=== PATIENT | female | born 1965 | race Caucasian/White ===

== ENCOUNTER → 2018-08-31 10:40 | Outpatient (CLI) | payer BC, SELFPAY ==
[2018-08-31 12:02] LABS: Absolute Lymphocyte Count 2.63 X10^3/ul (0.83-4.51); Basophil# 0.02 X10^3/uL; Basophil% 0.2 % (0-1); Eosinophil# 0.22 X10^3/uL; Eosinophils% 2.3 % (0-5); Hematocrit 45.2 % (37-47); Hemoglobin 14.7 g/dl (12.0-15.0); Lymphocyte # 2.63 X10^3/ul (4.0); Mean Corp Hgb Conc 32.5 g/gl (32-36); Mean Corpuscular Hgb 28.7 pg (27.0-32.0); Mean Corpuscular Volume 88.3 fL (81-99); Mean Platelet Vol. 10.4 fl (6.2-12.0); Monocyte# 0.53 X10^3/uL; Monocyte% 5.7 % (0-10); Neutrophil # 5.96 X10^3/uL (2.7-7.7); Neutrophil % 63.6 % (47-70); Platelet Count 242 K/mm3 (150-450); RBC Distribution Width CV 14.2 % (11.6-14.6); RBC Distribution Width SD 45.8 fl (35.1-43.9); Red Blood Count 5.12 M/mm3 (4.2-5.4); White Blood Count 9.4 K/mm3 (4.4-11.0)
[2018-08-31 12:17] LABS: ALB/GLOB Ratio 0.8 RATIO (0.9-2.4); AST(SGOT) 46 U/L (15-37); Alanine Aminotransfer ALT/SGPT 71 U/L (13-56); Albumin, Serum 3.4 g/dL (3.2-5.0); Alkaline Phosphatase 81 U/L (45-117); Anion Gap 8 (5-15); BUN 10 mg/dL (7-18); BUN/Creat Ratio 13.1 RATIO (10-20); Calcium,Total 8.4 mg/dL (8.5-10.1); Chloride 104 mmol/L (98-107); Creatinine, Serum 0.76 mg/dL (0.55-1.02); EST Glomerular Filtration Rate 84 mL/min (>60); Est Glom Filt Rate - Afr Amer 101 mL/min (>60); Globulin 4.2 g/dL (2.2-4.2); Glucose 112 mg/dL (74-106); Potassium 4.1 mmol/L (3.5-5.1); Protein, Total 7.6 g/dL (6.4-8.2); Sodium Level 139 mmol/L (136-145); Thyroid Stim Hormone (TSH) 0.94 uIU/mL (0.358-3.74)
[2018-08-31 12:25] LABS: POSITIVE COUNT NO; POSITIVE DIFFERENTIAL NO; POSITIVE MORPHOLOGY NO
== END ==
PROVIDERS: Visit Provider Family Medicine Geriatric Medicine
DX: Z00.00 Encounter for general adult medical examination without abnormal findings (principal)
CPT/HCPCS: 36415; 80053; 84443; 85025

== ENCOUNTER → 2018-10-06 12:12 | Outpatient (CLI) | payer BC, SELFPAY ==
--- NOTE | 2018-10-06 12:19 | BI_ITS ---
MAMMOGRAPHY - BILATERAL SCREENING REASON FOR EXAM: Female, 53 years old. Routine annual screening examination. PERTINENT HISTORY: Non-contributory. TECHNIQUE: Digital bilateral breast cass (3D mammographic acquisition) in the CC and MLO projections. 2-D mediolateral oblique (MLO) and craniocaudad (CC) views of both breasts were obtained. CAD: Full Field Digital Mammography with Computer Added Detection was performed. COMPARISON: Comparison is made with prior outside examination dated November 30, 2015. FINDINGS: Breast Composition: There are scattered areas of fibroglandular density. There are no dominant masses or suspicious calcifications. There is a stable 4.9 mm x 8.8 mm well-defined nodule in the upper lateral anterior aspect of the right breast. This most likely represents a small lymph node. There is also evidence of a 6.9 mm x 5.9 mm well-defined nodule in the central mid depth of the left breast. Correlation with ultrasound of both breasts is recommended. No other significant abnormalities are identified. There has been no significant change since the prior study. BI/SCREENING MAMM (CAD), BILAT IMPRESSION: Small bilateral well-defined nodules as described. Correlation with ultrasound is recommended. ASSESSMENT CATEGORY: BIRADS Category 0: Incomplete. Need additional imaging evaluation. A letter regarding these results will be sent to the patient by the facility within 30 days. Approximately 10% of breast cancers are not detected by mammography. A normal mammogram should not delay biopsy of a clinically suspicious abnormality. [id number] Electronically Signed: Trip Carl MD at 11:29 EST Tel [phone], Service support ,
== END ==
PROVIDERS: Family Provider Family Medicine Geriatric Medicine; PCP Family Medicine Geriatric Medicine; Referring Provider Family Medicine Geriatric Medicine; Visit Provider Family Medicine Geriatric Medicine
DX: Z12.31 Encounter for screening mammogram for malignant neoplasm of breast (principal)
CPT/HCPCS: 77063; 77067

== ENCOUNTER → 2018-10-09 14:13 | Outpatient (CLI) | payer BC, SELFPAY ==
--- NOTE | 2018-10-09 14:15 | US_ITS ---
STUDY: ULTRASOUND BREAST - RIGHT REASON FOR EXAM: Female, 53 years old. Abnormal screening mammogram. TECHNIQUE: Axial and longitudinal images of the RIGHT breast were performed with a high resolution ultrasound transducer. COMPARISON: Comparison is made with prior mammogram dated October 06, 2018. FINDINGS: RIGHT Breast: There is a 6 mm x 6 mm x 4 mm well-defined hypoechoic nodule with central increased echotexture at the 10:00 position breast at 7 cm from nipple. This corresponds to a small lymph node. IMPRESSION: Findings suggesting a small lymph node corresponding to the mammographic abnormality. ASSESSMENT CATEGORY: BIRADS Category 2: Benign. A letter regarding these results will be sent to the patient by the facility within 30 days. Electronically Signed: Trip Carl MD at 15:36 EST Tel [phone], Service support , STUDY: ULTRASOUND BREAST - LEFT REASON FOR EXAM: Female, 53 years old. Abnormal screening mammogram. TECHNIQUE: Axial and longitudinal images of the LEFT breast were performed with a high resolution ultrasound transducer. COMPARISON: Comparison is made with prior mammogram dated October 06, 2018. FINDINGS: LEFT Breast: There is a 3 mm x 5 mm x 2 mm cyst at the 6:00 position of the breast at 2 cm from the nipple. US/Breast Limited Unilateral IMPRESSION: The mammographic abnormality corresponds to a 3 mm x 5 mm x 2 mm cyst. ASSESSMENT CATEGORY: BIRADS Category 2: Benign. A letter regarding these results will be sent to the patient by the facility within 30 days. Electronically Signed: Trip Carl MD at 15:37 EST Tel [phone], Service support ,
== END ==
PROVIDERS: Family Provider Family Medicine Geriatric Medicine; PCP Family Medicine Geriatric Medicine; Visit Provider Family Medicine Geriatric Medicine
DX: R92.8 Other abnormal and inconclusive findings on diagnostic imaging of breast (principal); N63.0 Unspecified lump in unspecified breast
CPT/HCPCS: 76642

== ENCOUNTER → 2018-10-19 15:42 | Outpatient (CLI) | payer BC, SELFPAY ==
--- NOTE | 2018-10-19 15:47 | ECHOD_ITS ---
Reason For Study: MURMUR Procedure This was a 2D Doppler, Color Flow transthoracic echocardiogram. The exam was of fair technical quality due to body habitus. Exam performed in department. Left Ventricle Normal LV size. Left ventricular systolic function is normal. The estimated ejection fraction is 60 %. No evidence for diastolic dysfunction. No regional wall motion abnormalities noted. Right Ventricle Normal RV size. Normal systolic function. Atria Normal left atrium. Normal right atrium. Mitral Valve Normal mitral valve. Tricuspid Valve Normal tricuspid valve. Mild (1+) tricuspid valve insufficiency. Pulmonary artery systolic pressure is 45 mmHg. Aortic Valve The aortic valve is not well visualized. Pulmonic Valve The pulmonic valve is not well visualized. Great Vessels Normal aortic root. The pulmonary artery is normal size. Normal inferior vena cava. Pericardium/Pleural No pericardial effusion. MMode/2D Measurements & Calculations LVIDd: 4.3 cm IVSd: 0.93 cm Ao root diam: 3.6 cm LVIDs: 2.6 cm LVPWd: 0.86 cm RVDd: 4.1 cm FS: 39.7 % LAV(MOD-bp): 46.8 ml LVAd ap4: 29.8 cm2 SV(MOD-sp4): 60.0 ml LAV(MOD-bp) Indexed: 19.7 ml/m2 EDV(MOD-sp4): 92.4 ml LAV(MOD-sp2): 63.1 ml EDV(sp4-el): 96.9 ml LAV(MOD-sp4): 33.6 ml LVAs ap4: 15.3 cm2 ESV(MOD-sp4): 32.3 ml ESV(sp4-el): 33.4 ml EF(MOD-sp4): 65.0 % EF(sp4-el): 65.5 % SV(sp4-el): 63.5 ml LA A4 area: 14.7 cm2 LA dimension(2D): 4.4 cm RA A4 area: 12.9 cm2 Time Measurements MV dec time: 0.21 sec Doppler Measurements & Calculations MV E max alexey: 119.3 cm/sec Lat Peak E' Alexey: 7.7 cm/sec Med Peak E' Alexey: 8.1 cm/sec MV A max alexey: 96.7 cm/sec E/E' lat: 15.5 E/E' med: 14.8 MV E/A: 1.2 Ao V2 max: 238.5 cm/sec LV V1 max: 133.3 cm/sec PA V2 max: 124.0 cm/sec Ao max P.8 mmHg LV V1 max P.1 mmHg Ao V2 mean: 168.6 cm/sec LV V1 mean P.8 mmHg Ao mean P.7 mmHg LV V1 mean: 90.5 cm/sec Ao V2 VTI: 47.0 cm LV V1 VTI: 31.0 cm TR max alexey: 321.2 cm/sec TR max P.3 mmHg Interpretation Summary Normal LV size. Left ventricular systolic function is normal. The estimated ejection fraction is 60 %. No evidence for diastolic dysfunction. Mild (1+) tricuspid valve insufficiency. Ordering Physician: Jeet Farnsworth Referring Physician: Jeet Farnsworth Chi Performed By: Joyce Wynn, RDCS, RVT
== END ==
PROVIDERS: Family Provider Family Medicine Geriatric Medicine; PCP Family Medicine Geriatric Medicine; Referring Provider Family Medicine Geriatric Medicine; Visit Provider Family Medicine Geriatric Medicine
DX: R01.1 Cardiac murmur, unspecified (principal)
CPT/HCPCS: 93306

== ENCOUNTER → 2019-09-05 15:47 | Outpatient (CLI) | payer BC, SELFPAY ==
[2019-09-05 17:55] LABS: Absolute Lymphocyte Count 4.11 X10^3/uL (0.83-4.51); Absolute Neutrophil Count 6.5 X10^3/uL (2.0-7.7); Basophil# 0.03 X10^3/uL; Basophil% 0.3 % (0-1); Eosinophils% 1.7 % (0-5); Hematocrit 45.1 % (37-47); Hemoglobin 14.4 g/dL (12.0-15.0); Lymphocyte # 4.11 X10^3/ul (4.0); Lymphocyte % 35.4 % (19-41); Mean Corp Hgb Conc 31.9 g/dL (32-36); Mean Corpuscular Hgb 28.6 pg (27.0-32.0); Mean Corpuscular Volume 89.7 fL (81-99); Mean Platelet Vol. 10.8 fl (6.2-12.0); Monocyte# 0.72 X10^3/uL; Monocyte% 6.2 % (0-10); NRBC Flagged by Analyzer 0 % (0-5); Neutrophil # 6.51 X10^3/uL (2.7-7.7); Neutrophil % 56.1 % (47-70); Platelet Count 257 K/mm3 (150-450); RBC Distribution Width CV 13.9 % (11.6-14.6); RBC Distribution Width SD 45.1 fl (35.1-43.9); Red Blood Count 5.03 M/mm3 (4.2-5.4); White Blood Count 11.6 K/mm3 (4.4-11.0)
[2019-09-05 18:01] LABS: ALB/GLOB Ratio 0.9 RATIO (0.9-2.4); AST(SGOT) 31 U/L (15-37); Alanine Aminotransfer ALT/SGPT 57 U/L (13-56); Albumin, Serum 3.8 g/dL (3.2-5.0); Alkaline Phosphatase 93 U/L (45-117); Anion Gap 8 (5-15); BUN 14 mg/dL (7-18); BUN/Creat Ratio 13.5 RATIO (10-20); Calcium,Total 8.8 mg/dL (8.5-10.1); Chloride 103 mmol/L (98-107); Creatinine, Serum 1.04 mg/dL (0.55-1.02); EST Glomerular Filtration Rate 58 mL/min (>60); Est Glom Filt Rate - Afr Amer 71 mL/min (>60); Globulin 4.1 g/dL (2.2-4.2); Glucose 116 mg/dL (74-106); Potassium 3.9 mmol/L (3.5-5.1); Protein, Total 7.9 g/dL (6.4-8.2); Sodium Level 139 mmol/L (136-145); Thyroid Stim Hormone (TSH) 1.34 uIU/mL (0.358-3.74)
== END ==
PROVIDERS: Family Provider Family Medicine Geriatric Medicine; PCP Family Medicine Geriatric Medicine; Visit Provider Family Medicine Geriatric Medicine
DX: I10 Essential (primary) hypertension (principal)
CPT/HCPCS: 36415; 80053; 84443; 85025

== ENCOUNTER → 2020-09-10 16:04 | Outpatient (CLI) | payer BC, SELFPAY ==
[2020-09-10 17:38] LABS: Absolute Lymphocyte Count 3.59 X10^3/uL (0.83-4.51); Absolute Neutrophil Count 5.3 X10^3/uL (2.0-7.7); Basophil# 0.04 X10^3/uL; Basophil% 0.4 % (0-1); Eosinophil# 0.29 X10^3/uL; Eosinophils% 2.9 % (0-5); Hematocrit 43.1 % (37-47); Hemoglobin 13.8 g/dL (12.0-15.0); Lymphocyte # 3.59 X10^3/ul (4.0); Lymphocyte % 36.1 % (19-41); Mean Corpuscular Hgb 28.6 pg (27.0-32.0); Mean Corpuscular Volume 89.2 fL (81-99); Mean Platelet Vol. 10.6 fl (6.2-12.0); Monocyte# 0.64 X10^3/uL; Monocyte% 6.4 % (0-10); NRBC Flagged by Analyzer 0 % (0-5); Neutrophil # 5.34 X10^3/uL (2.7-7.7); Neutrophil % 53.8 % (47-70); POSITIVE MORPHOLOGY YES; Platelet Count 246 K/mm3 (150-450); RBC Distribution Width CV 13.5 % (11.6-14.6); RBC Distribution Width SD 43.9 fl (35.1-43.9); Red Blood Count 4.83 M/mm3 (4.2-5.4); White Blood Count 9.9 K/mm3 (4.4-11.0)
[2020-09-10 17:49] LABS: Vitamin D,25 Hydroxy 23.9 ng/mL
[2020-09-10 17:58] LABS: ALB/GLOB Ratio 0.8 RATIO (0.9-2.4); AST(SGOT) 34 U/L (15-37); Alanine Aminotransfer ALT/SGPT 62 U/L (13-56); Albumin, Serum 3.5 g/dL (3.2-5.0); Alkaline Phosphatase 100 U/L (45-117); Anion Gap 6 (5-15); BUN 13 mg/dL (7-18); BUN/Creat Ratio 16.1 RATIO (10-20); Calcium,Total 8.5 mg/dL (8.5-10.1); Chloride 102 mmol/L (98-107); Creatinine, Serum 0.81 mg/dL (0.55-1.02); EST Glomerular Filtration Rate 78 mL/min (>60); Est Glom Filt Rate - Afr Amer 94 mL/min (>60); Globulin 4.2 g/dL (2.2-4.2); Glucose 141 mg/dL (74-106); Potassium 3.9 mmol/L (3.5-5.1); Protein, Total 7.7 g/dL (6.4-8.2); Sodium Level 137 mmol/L (136-145); Thyroid Stim Hormone (TSH) 1.77 uIU/mL (0.358-3.74)
[2020-09-10 18:10] LABS: Differential Indicated SCAN CRITERIA MET
[2020-09-10 18:12] LABS: Anisocytosis RARE; Platelet Estimate ADEQUATE (ADEQ); Red Cell Morphology N CHROM NORMAL (NORM C&C)
== END ==
PROVIDERS: PCP Family Medicine Geriatric Medicine; Visit Provider Family Medicine Geriatric Medicine
DX: E55.9 Vitamin D deficiency, unspecified (principal); I10 Essential (primary) hypertension
CPT/HCPCS: 36415; 80053; 82306; 84443; 85025

== ENCOUNTER → 2020-10-03 08:32 | Outpatient (CLI) | payer BC, SELFPAY ==
--- NOTE | 2020-10-03 09:15 | US_ITS ---
STUDY: ABDOMINAL ULTRASOUND - RIGHT UPPER QUADRANT REASON FOR VISIT: Female, 55 years old right upper quadrant pain, elevated LFTs TECHNIQUE: Ultrasound evaluation of the right upper quadrant was performed with real-time and static julien-scale imaging. TECHNICAL QUALITY: Adequate. COMPARISON: None. FINDINGS: Liver: The liver measures 20.5 cm. There is increased echogenicity consistent with fatty infiltration. The bile ducts are within normal limits. There is hepatic color flow. The direction of portal flow is hepatopetal. There is no demonstrated mass lesion. Gallbladder: Normal distended gallbladder. The gallbladder wall measures 2.7 mm. There is a negative sonographic Mckeon''s sign. There is no pericholecystic fluid. There is a solitary echogenic gallstone within the gallbladder. Common Bile Duct (C.B.D.): The common bile duct measures 3.7 mm. Pancreas: Normal size of the head, body and tail of the pancreas. There is normal echogenicity of the pancreas. There is no demonstrated pancreatic mass or cyst. Right Kidney: Normal size of the right kidney. The right kidney measures 11.2 x 6.1 x 5.1 cm. Normal renal cortex. The right cortex measures 1.9 cm. There is no demonstrated renal mass or cyst. There is no right hydronephrosis. US/Abdomen Limited IMPRESSION: Hepatomegaly with diffuse fatty infiltration of the liver, no discrete lesion Cholelithiasis, no sonographic evidence of acute cholecystitis Electronically Signed: Elvis Beckham MD at 10:11 EST , Service support ,
[2020-10-05 08:07] LABS: HEPATITIS B SURFACE AG Negative (Negative); Hepatitis A AB, Total Negative (Negative); Hepatitis A IgM Antibody Negative (Negative); Hepatitis B Core AB IgM Negative (Negative); Hepatitis B Core Ab Total Negative (Negative); Hepatitis C Ab <0.1 s/co ratio (0.0-0.9)
[2020-10-05 08:28] LABS: Hep B Surface Antibodies Non Reactive (.)
== END ==
PROVIDERS: PCP Family Medicine Geriatric Medicine; Referring Provider Family Medicine Geriatric Medicine; Visit Provider Family Medicine Geriatric Medicine
DX: K76.9 Liver disease, unspecified (principal); R74.8 Abnormal levels of other serum enzymes
CPT/HCPCS: 76705; 86704; 86705; 86706; 86708; 86709; 86803; 87340

== ENCOUNTER → 2020-10-15 07:43 | Outpatient (CLI) | payer BC, SELFPAY ==
--- NOTE | 2020-10-15 07:51 | US_ITS ---
STUDY: ABDOMINAL ULTRASOUND - ELASTOGRAPHY REASON FOR VISIT: Female, 55 years old. Fatty infiltration of the liver. TECHNIQUE: Liver stiffness measurements were obtained on a Flyr RS 85 ultrasound machine using a CA 1-7 probe following the SRU guidelines. 3 measurements were obtained using a 2-D-SWE method. The IQR/M was 13% suggesting a quality data set. TECHNICAL QUALITY: Adequate. COMPARISON: None. FINDINGS: Liver: There is no demonstrated mass lesion. Fatty infiltration of the liver. Median liver stiffness measured 5.1 kPa. US/Elastography Parenchyma/Organ IMPRESSION: Liver stiffness measures 5.1 kPa compatible with F0 -- F1 Metavir score. High probability of being normal. Electronically Signed: Trip Carl, at 8:53 EST , Service support ,
== END ==
PROVIDERS: PCP Family Medicine Geriatric Medicine; Referring Provider Family Medicine Geriatric Medicine; Visit Provider Family Medicine Geriatric Medicine
DX: K76.0 Fatty (change of) liver, not elsewhere classified (principal)
CPT/HCPCS: 76981

== ENCOUNTER → 2020-11-03 14:00 | Outpatient (CLI) | payer BC, SELFPAY ==
--- NOTE | 2020-11-05 09:01 | EKG12_ITS ---
Test Reason : PREOP Blood Pressure : / mmHG Vent. Rate : 086 BPM Atrial Rate : 086 BPM P-R Int : 132 ms QRS Dur : 068 ms QT Int : 350 ms P-R-T Axes : 031 036 012 degrees QTc Int : 418 ms Normal sinus rhythm Low voltage QRS Borderline ECG Confirmed by ASHISH AYALA, GUANAKITO ([id number]), editor producer YASSINE SLAUGHTER ([id number]) on 11/09/2020 9:33:58 AM Referred By: Latonia Godfrey Confirmed By:TERRENCE HINOJOSA MD
[2020-11-05 10:18] LABS: Hematocrit 44.3 % (37-47); Hemoglobin 14.2 g/dL (12.0-15.0); Mean Corp Hgb Conc 32.1 g/dL (32-36); Mean Corpuscular Hgb 28.1 pg (27.0-32.0); Mean Corpuscular Volume 87.7 fL (81-99); Mean Platelet Vol. 10.6 fl (6.2-12.0); Platelet Count 132 K/mm3 (150-450); RBC Distribution Width CV 13.4 % (11.6-14.6); RBC Distribution Width SD 43.2 fl (35.1-43.9); Red Blood Count 5.05 M/mm3 (4.2-5.4); White Blood Count 3.7 K/mm3 (4.4-11.0)
[2020-11-05 10:45] LABS: Anion Gap 5 (5-15); BUN 12 mg/dL (7-18); BUN/Creat Ratio 14.2 RATIO (10-20); Calcium,Total 8.3 mg/dL (8.5-10.1); Chloride 103 mmol/L (98-107); Creatinine, Serum 0.84 mg/dL (0.55-1.02); EST Glomerular Filtration Rate 74 mL/min (>60); Est Glom Filt Rate - Afr Amer 89 mL/min (>60); Glucose 191 mg/dL (74-106); Potassium 4.1 mmol/L (3.5-5.1); Sodium Level 136 mmol/L (136-145)
--- NOTE | 2020-11-10 08:14 | HP.PCM_ITS ---
History and Physical Date of Admission: 11/12/20 Pre-Op History and Physical ? HPI: The patient is a 55 year old female presenting for pre-operative visit. She is scheduled for Hysteroscopy D&C, for stenotic cervix, PMB, Thickened endometrium. Unable to get adequate EMB in office. Could only pass pipelle to 6cm- ultrasound indicates 10 cm uterus. EM thickness 18mm on TBD. Procedure discussed along with risks, benefits and complications. Other alternatives discussed for management. Consent form signed? Yes. ? ? PAST MEDICAL HISTORY PAST MEDICAL HISTORY Diagnosis Date ? Menorrhagia ? ? ? PAST SURGICAL HISTORY PAST SURGICAL HISTORY Procedure Laterality Date ? DELIVERY ONLY ? ? ? , low cervical, X-2 ? COLONOSCOP W/ OR W/O [facility] SPEC ? 09/18/2018 ? Colonoscopy ? HYSTEROSCOPY BX W/WO D&C ? 12/20/13 ? PAST SURGICAL HISTORY OF ? 1969 ? EYE SURGERY (STABISMUS) ? TUBAL LIGATION, ? ? ? UNSPECIFIED ORAL SURGERY PROCEDURE, BY REPORT ? ? ? WISDOM TEETH EXTRACTION ? ? ? CURRENT MEDICATIONS Current Outpatient Medications Medication Sig Dispense Refill ? multivitamin (MULTIPLE VITAMIN) ORAL Tab Take one(1) tablet daily. ? 0 ? miSOPROStol (CYTOTEC) 200 mcg tablet Take two tablets PO night before procedure and two tablets morning of procedure 4 tablet 0 ? ibuprofen (MOTRIN) 600 mg tablet Take 1 tablet by mouth every 6 hours as needed. 30 tablet 0 ? No current facility-administered medications for this visit. ? ? ALLERGIES: Percodan [Oxycodone-Aspirin] ? PERSONAL HISTORY: SOCIAL HISTORY Social History ? Tobacco Use ? Smoking status: Never Smoker ? Smokeless tobacco: Never Used Substance Use Topics ? Alcohol use: No ? Drug use: No ? FAMILY HISTORY: FAMILY HISTORY FAMILY HISTORY Problem Relation Age of Onset ? Hypertension Father ? ? Lipids Father ? ? High Cholesterol ? ? REVIEW OF SYMPTOMS: negative except as noted above PHYSICAL EXAMINATION: ? VITALS: Blood pressure 142/72, weight (!) 326 lb (147.9 kg), last menstrual period 11/09/2015. ? GENERAL: The patient is well nourished, well hydrated in no acute distress. , The patient is oriented to time, place, and person. NECK: full range of motion GENITALIA: Normal external genitalia, Urethral meatus normal, Bladder nontender, normal vagina and normal vaginal tone, normal cervix and perineum WNL WET PREP: Not indicated ? IMPRESSION: Thickened EM, PMB, Obesity, stenotic cervix ? PLAN: Hysteroscopy, D&C, possible Mirena IUD insertion ? Pt has been counseled on risks/benefits and alternatives of surgery including but not limited to anesthesia, bleeding, infection, perforation of uterus with subsequent injury to pelvic structures including bowel, bladder, ureters and vessels. Pt wishes to proceed with surgery at this time. ? Cytotec pre op given Motrin for post op given ? I have reviewed and updated past medical and surgical history, medications and allergies Latonia Oneil MD Procedure Criteria Procedure Type: Elective COVID Risk Discussion: The surgeon/proceduralist and patient have discussed in detail the risk of exposure to and/or potential harm posed by the COVID-19 virus with having a surgery/procedure at this time versus the risk of delaying the surgery/procedure. It is not possible to know either the risk of delaying the s urgery or procedure or chance of getting an infection with perfect accuracy, but a joint decision was made between the patient and the surgeon/proceduralist to proceed at this time with the scheduled surgery/procedure as indicated on the consent form.
[2020-11-11 13:49] LABS: Specimen Processing Control PASS
[2020-11-11 13:50] LABS: Probe Check PASS
== END ==
LOC: PAT 12-17 13:07 → SDC 01-13 10:31
PROVIDERS: PCP Family Medicine Geriatric Medicine; Referring Provider Obstetrics & Gynecology; Visit Provider Obstetrics & Gynecology
DX: Z20.828 Contact with and (suspected) exposure to other viral communicable diseases (principal)
CPT/HCPCS: 36415; 80048; 85027; 87426; 87635; 93005; C9803; U0002

== ENCOUNTER 2021-01-14 06:42 | Day surgery (SDC) | payer BC, SELFPAY ==
--- NOTE | 2021-01-13 08:01 | PCM.HP.BLA ---
History and Physical Date of Admission: 01/14/21 Latonia Zamorabrionna Oneil Physician Specialty: DIRECTOR MARKET INTELLIGENCE H&P ? Signed Encounter Date: 01/04/2021 Chilango Winters Hide copied text Jose R for details Pre-Op History and Physical ? HPI: The patient is a 55 year old female presenting for discussion regarding Surgery for PMB, THickened EM and Stenotic cervix: Previous surgery canceled in November due to +covid testing. ? She is scheduled for Hysteroscopy D&C, for stenotic cervix, PMB, thickened Endometrium on 01/14/21. Procedure discussed along with risks, benefits and complications. Other alternatives discussed for management. Consent form signed? Yes. ? ? ? PAST MEDICAL HISTORYExpand by Default PAST MEDICAL HISTORY Diagnosis Date ? Menorrhagia ? ? ? PAST SURGICAL HISTORY PAST SURGICAL HISTORY Procedure Laterality Date ? DELIVERY ONLY ? ? ? , low cervical, X-2 ? COLONOSCOP W/ OR W/O [facility] SPEC ? 09/18/2018 ? Colonoscopy ? HYSTEROSCOPY BX W/WO D&C ? 12/20/13 ? PAST SURGICAL HISTORY OF ? 1969 ? EYE SURGERY (STABISMUS) ? TUBAL LIGATION, ? ? ? UNSPECIFIED ORAL SURGERY PROCEDURE, BY REPORT ? ? ? WISDOM TEETH EXTRACTION ? ? ? CURRENT MEDICATIONS Current Outpatient Medications Medication Sig Dispense Refill ? ibuprofen (MOTRIN) 600 mg tablet Take 1 tablet by mouth every 6 hours as needed. 30 tablet 0 ? multivitamin (MULTIPLE VITAMIN) ORAL Tab Take one(1) tablet daily. ? 0 ? miSOPROStol (CYTOTEC) 200 mcg tablet Take two tablets PO night before procedure and two tablets morning of procedure 4 tablet 0 ? No current facility-administered medications for this visit. ? ? ALLERGIES: Percodan [Oxycodone-Aspirin] ? PERSONAL HISTORY: SOCIAL HISTORY Social History ? Tobacco Use ? Smoking status: Never Smoker ? Smokeless tobacco: Never Used Substance Use Topics ? Alcohol use: No ? Drug use: No ? FAMILY HISTORY: FAMILY HISTORY FAMILY HISTORY Problem Relation Age of Onset ? Hypertension Father ? ? Lipids Father ? ? High Cholesterol ? ? REVIEW OF SYMPTOMS: negative except as noted above PHYSICAL EXAMINATION: ? VITALS: Blood pressure 140/88, height 5' 4 (1.626 m), weight (!) 321 lb (145.6 kg), last menstrual period 11/09/2015. ? GENERAL: The patient is well nourished, well hydrated in no acute distress. , The patient is oriented to time, place, and person. NECK: full range of motion ? IMPRESSION: Stenotic cervix, PMB, thickened EM ? PLAN: Hysteroscopy D&C with Symphion ? Cytotec- prior to surgery ? Pt has been counseled on risks/benefits and alternatives of surgery including but not limited to anesthesia, bleeding, infection, uterine perforation with subsequent injury to pelvic structures including bowel, bladder, ureters and vessels. Pt wishes to proceed with surgery at this time. ? ? I have reviewed and updated past medical and surgical history, medications and allergies ? Latonia Oneil MD ?5:08 PM Office Visit on 01/04/2021 Note shared with patient
[2021-01-14 07:04] VITALS: BP 172/73; PULSE 84; RESP 16; TEMP 37.2; O2SAT 100; BMI 55.0
[2021-01-14] MEDS: Lactated Ringers 1,000 ML 150 ML IV (07:35)
[2021-01-14 07:39] LABS: Hematocrit 45.5 % (37-47); Hemoglobin 14.3 g/dL (12.0-15.0); Mean Corp Hgb Conc 31.4 g/dL (32-36); Mean Corpuscular Hgb 27.4 pg (27.0-32.0); Mean Corpuscular Volume 87.3 fL (81-99); Mean Platelet Vol. 9.8 fl (6.2-12.0); Platelet Count 257 K/mm3 (150-450); RBC Distribution Width CV 14.4 % (11.6-14.6); RBC Distribution Width SD 46.5 fl (35.1-43.9); Red Blood Count 5.21 M/mm3 (4.2-5.4); White Blood Count 10.4 K/mm3 (4.4-11.0)
--- NOTE | 2021-01-14 08:30 | EMB_PTH ---
PATIENT: GISELA JAIMES LOC: [facility] [place] U#:[id number] AGE/SX: 55/F ROOM: RE01/14/[address]: Dr. Latonia Godfrey, MDDOB: 1965 BED: DIS: 01/14/2021 SPEC #: [id number] RECD: 01/14/21 12:51 STATUS: LES YVONNE #: [id number] KB: 01/14/21 08:[address]: Latonia Godfrey DEPT: SURGICAL PATHOLOGY RECD BY: Yaima Chu ENTERED: 01/15/21 08:24 SP TYPE: ENDOM BX/C [place] DR: Dr. Jeet Farnsworth MD Tissues: Endometrium, NOS Procedures: Surgery Specimen Level IV HEADER OPERATION: Hysteroscopy, D & C Symphion PRE-OP DIAGNOSIS: Stenotic cervix, PMB, thickened EM TISSUE SUBMITTED: Endometrial curettings MICROSCOPIC DIAGNOSIS Endometrium, curettings: Simple and complex hyperplasia with focal cytologic atypia. Fragments of benign myometrium. Rare fragments of benign superficial squamous mucosa. AM:janene 01/18/2021 COMMENT Higher grade lesion cannot be excluded. MICROSCOPIC DESCRIPTION Slides are reviewed. GROSS DESCRIPTION Received in fixative is one container labeled with the patient's name and designated endometrial curettings. The specimen consists of multiple fragments of long hemorrhagic soft tissue mixed with mucoid tissue that in aggregate measure 5 x 3 x 0.3 cm. The entire specimen is submitted in two cassettes. / SJ:janene 01/15/21 TC:? CPT: 24819
--- NOTE | 2021-01-14 08:58 | OP.PCM_ITS ---
Report of Operation Date of Procedure: 01/14/21 - start 08 end time 0850 Pre-Operative Diagnosis: thickened endometrium, PMB, stenotic cervix Post-Operative Diagnosis: same Surgery/Procedure Performed:: Hysteroscopy, D&C with symphion Description of Surgical Findings:: Cavity deviates to left- measured 8cm. THickened endometrium, no well defined polyps. curettage performed with symphion resecting device Type of Anesthesia:: MAC Special Medications: none Specimen's removed: endometrial curettings Drains: none Estimated Blood Loss (mL): 5cc Fluids Replaced: 600cc Description of Procedure: nformed consent was obtained the patient was taken the operating room she was placed in supine position. She was given anesthesia. She was then placed in the [facility] where she was prepped and draped in the normal sterile fashion. At this time the weighted speculum was placed in the posterior fornix of vagina. Single-tooth tenaculum was used to gently grasp the anterior lip the cervix. At this time the uterine cavity was sounded to approximately 8 cm d eviates to left. Gentle dilatation was performed once adequate dilatation of the cervix was achieved the hysteroscope using normal saline as a distention medium was placed. thickened endometrium but no well defined polyps. At this time the resecting device for symphion was set up to obtain endometrial curettings. Tissue will be sent to pathology for evaluation. cavity remained intact. the fluid deficit was 500cc. Tenaculum removed. Good hemostasis. Instrument, lap count correct x 2. Vaginal Sweep was negative. Grafts/Implants Used: none - Complications none - Admit VTE Documentation VTE Present on Admission: Yes VTE Mechan Device Prophylaxis: SCD's VTE Pharm Prophylaxis ordered?: No
[2021-01-14 09:00] VITALS: BP 143/74; BP 172/73; PULSE 85; RESP 16; TEMP 36.6; O2SAT 94
--- NOTE | 2021-01-14 09:03 | DCINST_ITS ---
Discharge Diet: No Restrictions Discharge Activity: Return to Normal Activity, May Shower, May Take a Tub Bath - in 2 weeks. May resume sexual activity in: 1 week Call your doctor if you observe: Fever of 101 or Higher, Using more than one pad per hour Allergies/Adverse Reactions: Allergies aspirin [From Percodan] Allergy (Verified 01/07/21 13:01) Hives oxycodone [From Percodan] Allergy (Verified 01/07/21 13:01) Hives Medications to take at Discharge Multivitamin with Minerals [Multiple Vitamin] 1 ea PO DAILY 11/03/20 Primary Care Physician: Jeet Farnsworth Chi, MD [Primary Care Provider] - Test Results: Test results from this visit will be discussed in further detail at your follow- up appointment, if applicable. Please Follow Up With: Latonia Godfrey MD - in 2 weeks When: call [phone]
[2021-01-14 09:05] VITALS: BP 102/52; BP 172/73; PULSE 85; RESP 16; O2SAT 94
[2021-01-14 09:10] VITALS: BP 128/77; BP 172/73; PULSE 82; RESP 16; O2SAT 96
[2021-01-14 09:15] VITALS: BP 140/71; BP 172/73; PULSE 81; RESP 18; TEMP 36; O2SAT 95
[2021-01-14 09:42] VITALS: BP 172/73
== END 2021-01-14 09:58 | disposition home or self-care (01) ==
LOC: SDC 06:42 → AC 06:42
PROVIDERS: PCP Family Medicine Geriatric Medicine; Referring Provider Obstetrics & Gynecology; Visit Provider Obstetrics & Gynecology
PROC: 0UB98ZZ Excision of Uterus, Via Natural or Artificial Opening Endoscopic (ICD-10-PCS; CPT 58558; principal; 2021-01-14 08:15)
DX: R93.89 Abnormal findings on diagnostic imaging of other specified body structures (principal); N88.2 Stricture and stenosis of cervix uteri
CPT/HCPCS: 58558; 85027; 88305; J7120; J2405

== ENCOUNTER → 2021-03-24 13:53 | Outpatient (CLI) | payer BC, SELFPAY ==
--- NOTE | 2021-03-24 13:56 | BI_ITS ---
MAMMOGRAPHY - BILATERAL SCREENING 3-D TOMOSYNTHESIS REASON FOR EXAM: Female, 55 years old. Routine screening PERTINENT HISTORY: No significant family history. TECHNIQUE: 2-D mammograms and 3-D Tomosynthesis of the breast (s) were performed. CAD was performed. COMPARISON: No comparison mammograms available at this time. If any prior films become available, an addendum to this report can be generated. FINDINGS: The breast composition is composed of scattered fibroglandular density. Scattered benign calcifications are seen. No dense spiculated masses or suspicious microcalcifications are identified. No architectural distortion is identified. There is no skin thickening or retraction. BI/SCRN MAMM (CAD)W/ROSIO BILAT IMPRESSION: No mammographic signs of malignancy. Routine yearly mammograms recommended. ASSESSMENT CATEGORY: BIRADS Category 2: Benign. A letter regarding these results will be sent to the patient by the facility within 30 days. FOLLOW UP RECOMMENDATION: Yearly follow up mammogram recommended. (A) Approximately 10% of breast cancers are not detected by mammography. A normal mammogram should not delay biopsy of a clinically suspicious abnormality. Electronically Signed: Elvis Beckham MD at 14:57 EDT , Service support ,
== END ==
PROVIDERS: PCP Family Medicine Geriatric Medicine; Referring Provider Family Medicine Geriatric Medicine; Visit Provider Family Medicine Geriatric Medicine
DX: Z12.31 Encounter for screening mammogram for malignant neoplasm of breast (principal)
CPT/HCPCS: 77063; 77067

== ENCOUNTER → 2021-09-15 16:30 | Outpatient (CLI) | payer BC, SELFPAY ==
[2021-09-15 17:20] LABS: Absolute Lymphocyte Count 4.07 X10^3/uL (0.83-4.51); Absolute Neutrophil Count 5.4 X10^3/uL (2.0-7.7); Basophil# 0.05 X10^3/uL; Basophil% 0.5 % (0-1); Eosinophil# 0.28 X10^3/uL; Eosinophils% 2.7 % (0-5); Hemoglobin 13.7 g/dL (12.0-15.0); Lymphocyte # 4.07 X10^3/ul (0.83-4.51); Lymphocyte % 38.8 % (19-41); Mean Corp Hgb Conc 31.9 g/dL (32-36); Mean Corpuscular Hgb 27.5 pg (27.0-32.0); Mean Corpuscular Volume 86.3 fL (81-99); Mean Platelet Vol. 10.3 fl (6.2-12.0); Monocyte# 0.61 X10^3/uL; Monocyte% 5.8 % (0-10); NRBC Flagged by Analyzer 0 % (0-5); Neutrophil # 5.42 X10^3/uL (2.7-7.7); Neutrophil % 51.7 % (47-70); Platelet Count 271 K/mm3 (150-450); RBC Distribution Width CV 13.2 % (11.6-14.6); RBC Distribution Width SD 40.8 fl (35.1-43.9); Red Blood Count 4.98 M/mm3 (4.2-5.4); White Blood Count 10.5 K/mm3 (4.4-11.0)
[2021-09-15 17:54] LABS: ALB/GLOB Ratio 0.8 RATIO (0.9-2.4); AST(SGOT) 36 U/L (15-37); Alanine Aminotransfer ALT/SGPT 62 U/L (13-56); Albumin, Serum 3.3 g/dL (3.2-5.0); Alkaline Phosphatase 99 U/L (45-117); Anion Gap 8 (5-15); BUN 14 mg/dL (7-18); BUN/Creat Ratio 19.2 RATIO (10-20); Calcium,Total 8.6 mg/dL (8.5-10.1); Chloride 101 mmol/L (98-107); Creatinine, Serum 0.73 mg/dL (0.55-1.02); EST Glomerular Filtration Rate 87 mL/min (>60); Est Glom Filt Rate - Afr Amer 106 mL/min (>60); Globulin 4.3 g/dL (2.2-4.2); Glucose 148 mg/dL (74-106); Potassium 3.9 mmol/L (3.5-5.1); Protein, Total 7.6 g/dL (6.4-8.2); Sodium Level 136 mmol/L (136-145); Thyroid Stim Hormone (TSH) 1.52 uIU/mL (0.358-3.74)
[2021-09-16 14:13] LABS: Hemoglobin A1c 7.2 % (3.8-5.6)
== END ==
PROVIDERS: PCP Family Medicine Geriatric Medicine; Visit Provider Family Medicine Geriatric Medicine
DX: I10 Essential (primary) hypertension (principal); R73.9 Hyperglycemia, unspecified
CPT/HCPCS: 36415; 80053; 83036; 84443; 85025

== ENCOUNTER 2021-12-22 16:13 | Outpatient (CLI) | payer BC, SELFPAY ==
[2021-12-22 17:21] LABS: Absolute Neutrophil Count 6.5 X10^3/uL (2.0-7.7); Basophil# 0.04 X10^3/uL; Basophil% 0.4 % (0-1); Eosinophil# 0.01 X10^3/uL; Eosinophils% 0.1 % (0-5); Hematocrit 44.1 % (37-47); Hemoglobin 14.5 g/dL (12.0-15.0); Lymphocyte % 35.5 % (19-41); Mean Corp Hgb Conc 32.9 g/dL (32-36); Mean Corpuscular Hgb 27.9 pg (27.0-32.0); Mean Platelet Vol. 10.2 fl (6.2-12.0); Monocyte% 6.2 % (0-10); NRBC Flagged by Analyzer 0 % (0-5); Neutrophil # 6.51 X10^3/uL (2.7-7.7); Neutrophil % 57.6 % (47-70); Platelet Count 280 K/mm3 (150-450); RBC Distribution Width CV 13.1 % (11.6-14.6); RBC Distribution Width SD 40.2 fl (35.1-43.9); Red Blood Count 5.19 M/mm3 (4.2-5.4); White Blood Count 11.3 K/mm3 (4.4-11.0)
[2021-12-22 17:35] LABS: ALB/GLOB Ratio 0.8 RATIO (0.9-2.4); AST(SGOT) 19 U/L (15-37); Alanine Aminotransfer ALT/SGPT 35 U/L (13-56); Albumin, Serum 3.6 g/dL (3.2-5.0); Alkaline Phosphatase 89 U/L (45-117); Anion Gap 5 (5-15); BUN 16 mg/dL (7-18); BUN/Creat Ratio 21.4 RATIO (10-20); Calcium,Total 8.9 mg/dL (8.5-10.1); Chloride 101 mmol/L (98-107); Creatinine, Serum 0.75 mg/dL (0.55-1.02); EST Glomerular Filtration Rate 85 mL/min (>60); Est Glom Filt Rate - Afr Amer 103 mL/min (>60); Globulin 4.5 g/dL (2.2-4.2); Glucose 124 mg/dL (74-106); Potassium 3.7 mmol/L (3.5-5.1); Protein, Total 8.1 g/dL (6.4-8.2); Sodium Level 136 mmol/L (136-145); Thyroid Stim Hormone (TSH) 1.81 uIU/mL (0.358-3.74)
== END 2021-12-22 23:59 | disposition home or self-care (01) ==
LOC: POLAB3 16:14
PROVIDERS: PCP Family Medicine Geriatric Medicine; Visit Provider Family Medicine Geriatric Medicine
DX: E11.65 Type 2 diabetes mellitus with hyperglycemia (principal); I10 Essential (primary) hypertension
CPT/HCPCS: 36415; 80053; 84443; 85025

== ENCOUNTER → 2022-03-23 | Outpatient (CLI) | payer BC, SELFPAY ==
[2022-03-23 17:17] LABS: Absolute Lymphocyte Count 3.95 X10^3/uL (0.83-4.51); Basophil# 0.04 X10^3/uL; Basophil% 0.4 % (0-1); Eosinophil# 0.39 X10^3/uL; Eosinophils% 3.5 % (0-5); Hematocrit 45.3 % (37-47); Hemoglobin 14.5 g/dL (12.0-15.0); Lymphocyte # 3.95 X10^3/ul (0.83-4.51); Lymphocyte % 35.5 % (19-41); Mean Corpuscular Hgb 27.6 pg (27.0-32.0); Mean Corpuscular Volume 86.3 fL (81-99); Mean Platelet Vol. 10.1 fl (6.2-12.0); Monocyte# 0.74 X10^3/uL; Monocyte% 6.6 % (0-10); NRBC Flagged by Analyzer 0 % (0-5); Neutrophil % 53.8 % (47-70); Platelet Count 285 K/mm3 (150-450); RBC Distribution Width CV 13.4 % (11.6-14.6); Red Blood Count 5.25 M/mm3 (4.2-5.4); White Blood Count 11.1 K/mm3 (4.4-11.0)
[2022-03-23 17:56] LABS: ALB/GLOB Ratio 0.9 RATIO (0.9-2.4); AST(SGOT) 15 U/L (15-37); Alanine Aminotransfer ALT/SGPT 31 U/L (13-56); Albumin, Serum 3.7 g/dL (3.2-5.0); Alkaline Phosphatase 87 U/L (45-117); Anion Gap 8 (5-15); BUN 18 mg/dL (7-18); BUN/Creat Ratio 21.2 RATIO (10-20); Calcium,Total 8.9 mg/dL (8.5-10.1); Chloride 99 mmol/L (98-107); Creatinine, Serum 0.85 mg/dL (0.55-1.02); EST Glomerular Filtration Rate 73 mL/min (>60); Est Glom Filt Rate - Afr Amer 88 mL/min (>60); Globulin 4.2 g/dL (2.2-4.2); Glucose 134 mg/dL (74-106); Potassium 3.6 mmol/L (3.5-5.1); Protein, Total 7.9 g/dL (6.4-8.2); Sodium Level 136 mmol/L (136-145); Thyroid Stim Hormone (TSH) 1.88 uIU/mL (0.358-3.74)
== END | disposition home or self-care (01) ==
PROVIDERS: PCP Family Medicine Geriatric Medicine; Visit Provider Family Medicine Geriatric Medicine
DX: E11.65 Type 2 diabetes mellitus with hyperglycemia (principal); I10 Essential (primary) hypertension
CPT/HCPCS: 36415; 80053; 84443; 85025

== ENCOUNTER → 2022-09-26 | Outpatient (CLI) | payer BC, SELFPAY ==
[2022-09-26 17:46] LABS: Absolute Lymphocyte Count 3.44 X10^3/uL (0.83-4.51); Absolute Neutrophil Count 5.6 X10^3/uL (2.0-7.7); Basophil# 0.03 X10^3/uL; Basophil% 0.3 % (0-1); Hematocrit 44.9 % (37-47); Hemoglobin 14.6 g/dL (12.0-15.0); Lymphocyte # 3.44 X10^3/ul (0.83-4.51); Lymphocyte % 35.4 % (19-41); Mean Corp Hgb Conc 32.5 g/dL (32-36); Mean Corpuscular Hgb 27.8 pg (27.0-32.0); Mean Corpuscular Volume 85.5 fL (81-99); Mean Platelet Vol. 9.9 fl (6.2-12.0); Monocyte# 0.62 X10^3/uL; Monocyte% 6.4 % (0-10); NRBC Flagged by Analyzer 0 % (0-5); Neutrophil # 5.61 X10^3/uL (2.7-7.7); Neutrophil % 57.6 % (47-70); Platelet Count 269 K/mm3 (150-450); RBC Distribution Width CV 13.5 % (11.6-14.6); RBC Distribution Width SD 41.7 fl (35.1-43.9); Red Blood Count 5.25 M/mm3 (4.2-5.4); White Blood Count 9.7 K/mm3 (4.4-11.0)
[2022-09-26 18:17] LABS: ALB/GLOB Ratio 0.9 RATIO (0.9-2.4); AST(SGOT) 13 U/L (15-37); Alanine Aminotransfer ALT/SGPT 26 U/L (13-56); Albumin, Serum 3.6 g/dL (3.2-5.0); Alkaline Phosphatase 86 U/L (45-117); Anion Gap 7 (5-15); BUN 19 mg/dL (7-18); Calcium,Total 8.6 mg/dL (8.5-10.1); Chloride 102 mmol/L (98-107); Creatinine, Serum 0.73 mg/dL (0.55-1.02); EST Glomerular Filtration Rate 87 mL/min (>60); Est Glom Filt Rate - Afr Amer 105 mL/min (>60); Globulin 3.9 g/dL (2.2-4.2); Glucose 113 mg/dL (74-106); Protein, Total 7.5 g/dL (6.4-8.2); Sodium Level 137 mmol/L (136-145); Thyroid Stim Hormone (TSH) 1.71 uIU/mL (0.358-3.74)
== END | disposition home or self-care (01) ==
LOC: LAB 17:12
PROVIDERS: PCP Family Medicine Geriatric Medicine; Visit Provider Family Medicine Geriatric Medicine
DX: I10 Essential (primary) hypertension (principal)
CPT/HCPCS: 36415; 80053; 84443; 85025

== ENCOUNTER → 2023-02-13 | Outpatient (CLI) | payer BC, SELFPAY ==
--- NOTE | 2023-02-13 16:09 | BI_ITS ---
MAMMOGRAPHY - BILATERAL SCREENING 3-D TOMOSYNTHESIS REASON FOR EXAM: Female, 57 years old. Routine screening PERTINENT HISTORY: No significant family history. TECHNIQUE: 2-D mammograms and 3-D Tomosynthesis of the breast (s) were performed. CAD was performed. COMPARISON: 10/06/2018 FINDINGS: The breast composition is composed of scattered fibroglandular density. Scattered benign calcifications are seen. No dense spiculated masses or suspicious microcalcifications are identified. No architectural distortion is identified. There is no skin thickening or retraction. There has been no significant change since the prior study. BI/SCRN MAMM (CAD)W/ROSIO BILAT IMPRESSION: No mammographic signs of malignancy. Routine yearly mammograms recommended. ASSESSMENT CATEGORY: BIRADS Category 1: Negative. A letter regarding these results will be sent to the patient by the facility within 30 days. FOLLOW UP RECOMMENDATION: Yearly follow up mammogram recommended. (A) Approximately 10% of breast cancers are not detected by mammography. A normal mammogram should not delay biopsy of a clinically suspicious abnormality. Electronically Signed: Elvis Beckham MD at 7:41 EDT ,
== END | disposition home or self-care (01) ==
LOC: OPBI 16:07
PROVIDERS: PCP Family Medicine Geriatric Medicine; Referring Provider Family Medicine Geriatric Medicine; Visit Provider Family Medicine Geriatric Medicine
DX: Z12.31 Encounter for screening mammogram for malignant neoplasm of breast (principal)
CPT/HCPCS: 77063; 77067

== ENCOUNTER → 2023-03-21 | Outpatient (CLI) | payer BC, SELFPAY ==
[2023-03-21 17:20] LABS: Absolute Lymphocyte Count 3.11 X10^3/uL (0.83-4.51); Absolute Neutrophil Count 5.4 X10^3/uL (2.0-7.7); Basophil# 0.04 X10^3/uL; Basophil% 0.4 % (0-1); Eosinophil# 0.15 X10^3/uL; Eosinophils% 1.6 % (0-5); Hemoglobin 14.2 g/dL (12.0-15.0); Lymphocyte # 3.11 X10^3/ul (0.83-4.51); Lymphocyte % 33.6 % (19-41); Mean Corp Hgb Conc 32.3 g/dL (32-36); Mean Corpuscular Hgb 27.7 pg (27.0-32.0); Mean Corpuscular Volume 85.9 fL (81-99); Mean Platelet Vol. 10.2 fl (6.2-12.0); Monocyte# 0.57 X10^3/uL; Monocyte% 6.2 % (0-10); NRBC Flagged by Analyzer 0 % (0-5); Neutrophil # 5.36 X10^3/uL (2.7-7.7); Platelet Count 267 K/mm3 (150-450); RBC Distribution Width CV 13.2 % (11.6-14.6); RBC Distribution Width SD 40.9 fl (35.1-43.9); Red Blood Count 5.12 M/mm3 (4.2-5.4); White Blood Count 9.3 K/mm3 (4.4-11.0)
[2023-03-21 18:50] LABS: ALB/GLOB Ratio 0.8 RATIO (0.9-2.4); AST(SGOT) 15 U/L (15-37); Alanine Aminotransfer ALT/SGPT 29 U/L (13-56); Albumin, Serum 3.4 g/dL (3.2-5.0); Alkaline Phosphatase 94 U/L (45-117); Anion Gap 8 (5-15); BUN 15 mg/dL (7-18); BUN/Creat Ratio 21.1 RATIO (10-20); Calcium,Total 8.4 mg/dL (8.5-10.1); Chloride 105 mmol/L (98-107); Creatinine, Serum 0.71 mg/dL (0.55-1.02); EST Glomerular Filtration Rate 89 mL/min (>60); Est Glom Filt Rate - Afr Amer 108 mL/min (>60); Glucose 137 mg/dL (74-106); Protein, Total 7.4 g/dL (6.4-8.2); Sodium Level 138 mmol/L (136-145); Thyroid Stim Hormone (TSH) 1.77 uIU/mL (0.358-3.74)
== END | disposition home or self-care (01) ==
LOC: POLAB3 16:33
PROVIDERS: PCP Family Medicine Geriatric Medicine; Visit Provider Family Medicine Geriatric Medicine
DX: E11.65 Type 2 diabetes mellitus with hyperglycemia (principal); I10 Essential (primary) hypertension
CPT/HCPCS: 36415; 80053; 84443; 85025

== ENCOUNTER → 2023-10-03 | Outpatient (CLI) | payer BC, SELFPAY ==
[2023-10-03 17:25] LABS: Absolute Lymphocyte Count 3.14 X10^3/uL (0.83-4.51); Absolute Neutrophil Count 5.7 X10^3/uL (2.0-7.7); Basophil# 0.03 X10^3/uL; Basophil% 0.3 % (0-1); Hematocrit 43.5 % (37-47); Hemoglobin 13.9 g/dL (12.0-15.0); Lymphocyte # 3.14 X10^3/ul (0.83-4.51); Lymphocyte % 33.3 % (19-41); Mean Corpuscular Hgb 27.9 pg (27.0-32.0); Mean Corpuscular Volume 87.3 fL (81-99); Mean Platelet Vol. 10.5 fl (6.2-12.0); Monocyte# 0.55 X10^3/uL; Monocyte% 5.8 % (0-10); NRBC Flagged by Analyzer 0 % (0-5); Neutrophil # 5.69 X10^3/uL (2.7-7.7); Neutrophil % 60.3 % (47-70); Platelet Count 236 K/mm3 (150-450); RBC Distribution Width CV 13.6 % (11.6-14.6); RBC Distribution Width SD 42.9 fl (35.1-43.9); Red Blood Count 4.98 M/mm3 (4.2-5.4); White Blood Count 9.4 K/mm3 (4.4-11.0)
[2023-10-03 17:45] LABS: ALB/GLOB Ratio 0.9 RATIO (0.9-2.4); AST(SGOT) 25 U/L (15-37); Alanine Aminotransfer ALT/SGPT 44 U/L (13-56); Albumin, Serum 3.5 g/dL (3.2-5.0); Alkaline Phosphatase 81 U/L (45-117); Anion Gap 3 (5-15); BUN 15 mg/dL (7-18); BUN/Creat Ratio 14.6 RATIO (10-20); Chloride 104 mmol/L (98-107); Creatinine, Serum 1.03 mg/dL (0.55-1.02); EST Glomerular Filtration Rate 58 mL/min (>60); Est Glom Filt Rate - Afr Amer 70 mL/min (>60); Glucose 131 mg/dL (74-106); Potassium 3.7 mmol/L (3.5-5.1); Protein, Total 7.5 g/dL (6.4-8.2); Sodium Level 137 mmol/L (136-145); Thyroid Stim Hormone (TSH) 1.92 uIU/mL (0.358-3.74)
== END | disposition home or self-care (01) ==
LOC: POLAB3 16:26
PROVIDERS: PCP Family Medicine Geriatric Medicine; Visit Provider Family Medicine Geriatric Medicine
DX: E11.65 Type 2 diabetes mellitus with hyperglycemia (principal); I10 Essential (primary) hypertension
CPT/HCPCS: 36415; 80053; 84443; 85025

== ENCOUNTER → 2024-09-03 | Outpatient (CLI) | payer BC, SELFPAY ==
[2024-09-03 16:20] LABS: Absolute Lymphocyte Count 3.72 X10^3/uL (0.83-4.51); Absolute Neutrophil Count 5.8 X10^3/uL (2.0-7.7); Basophil# 0.04 X10^3/uL; Basophil% 0.4 % (0-1); Eosinophil# 0.12 X10^3/uL; Eosinophils% 1.2 % (0-5); Hematocrit 41.5 % (37-47); Hemoglobin 13.5 g/dL (12.0-15.0); Lymphocyte # 3.72 X10^3/ul (0.83-4.51); Lymphocyte % 36.3 % (19-41); Mean Corp Hgb Conc 32.5 g/dL (32-36); Mean Corpuscular Hgb 28.2 pg (27.0-32.0); Mean Corpuscular Volume 86.6 fL (81-99); Mean Platelet Vol. 10.2 fl (6.2-12.0); Monocyte# 0.58 X10^3/uL; Monocyte% 5.7 % (0-10); NRBC Flagged by Analyzer 0 % (0-5); Neutrophil # 5.77 X10^3/uL (2.7-7.7); Neutrophil % 56.1 % (47-70); Platelet Count 256 K/mm3 (150-450); RBC Distribution Width CV 13.5 % (11.6-14.6); Red Blood Count 4.79 M/mm3 (4.2-5.4); White Blood Count 10.3 K/mm3 (4.4-11.0)
[2024-09-03 16:54] LABS: ALB/GLOB Ratio 0.9 RATIO (0.9-2.4); AST(SGOT) 44 U/L (15-37); Alanine Aminotransfer ALT/SGPT 57 U/L (13-56); Albumin, Serum 3.7 g/dL (3.2-5.0); Alkaline Phosphatase 71 U/L (45-117); Anion Gap 8 (5-15); BUN 15 mg/dL (7-18); BUN/Creat Ratio 15.4 RATIO (10-20); Calcium,Total 8.6 mg/dL (8.5-10.1); Chloride 102 mmol/L (98-107); Creatinine, Serum 0.97 mg/dL (0.55-1.02); EST Glomerular Filtration Rate 62 mL/min (>60); Est Glom Filt Rate - Afr Amer 75 mL/min (>60); Globulin 3.9 g/dL (2.2-4.2); Glucose 133 mg/dL (74-106); Potassium 3.9 mmol/L (3.5-5.1); Protein, Total 7.6 g/dL (6.4-8.2); Sodium Level 136 mmol/L (136-145)
--- OUTSIDE RECORDS SUMMARY | 2024-09-03 19:56 | XMS RPT_ITS | CCD ---
Author Organization [place] [facility] Results Test Name Value Interpretation Reference Range Facil ity CNPNon 04-02-2021 CNPN Telephone (AGGYNONPO B) THEODORESHANNAN ([id number]) 1965 F Date Time Provider Department 04/02/21 MARA JACKSON During your visit today, we recorded the following information about you: Siomara Santiago MA 04/02/2021 11:16 AM Signed Patient called asking if her fit for duty form she brought in yesterday was faxed to [facility] [[email or web address] Siomara Santiago MA 04/02/2021 1:18 PM Signed Notified patient that Tabitha sent office notes and fit for duty form to [facility] [[email or web address] No further questions were asked. Allergies As of Date: 04/02/2021 Noted Allergy Reaction PERCODAN (OXYCODONE-ASPIRIN) 05/04/2006 2 - Rash Date Reviewed: 04/01/2021 Reviewed by: Siomara Santiago MA - Fully Assessed Reason for Visit: Patient Question [8367] Prescriptions as of 04/02/2021 Sig: IBUPROFEN 600 MG TABLET Take 1 tablet by mouth every * ACETAMINOPHEN 500 MG TABLET Take 1 tablet by mouth every * MULTIPLE VITAMIN TABLET Take 1 tablet by mouth once d* Problem List As Of Date 04/02/2021 Noted Resolved Menorrhagia [N92.0] 10/08/2014 Obesity, Class III, BMI >= 40 [E66.01] 02/16/2021 Encounter Status:Closed by SIOMARA SANTIAGO on 04/02/21 [facility] CNOVSPon 04-01-2021 CNOVSP Visit (SP) Office (MIL) SHANNAN JAIMES ([id number]) 1965 F Date Time Provider Department 04/01/21 10:00 AM MARA JACKSON During your visit today, we recorded the following information about you: Pulse Blood pressure Weight Height 98/minute 138/70 143.3 kg 1.626 m Mara Jackson APRN.CNP 04/01/2021 4:03 PM Signed DATE OF SERVICE: 04/01/2021 PROBLEM: Shannan Jaimes presents for postop visit. SURGERY AND DATE: 02/17/2021 EUA, Laparoscopic lysis of adhesions, TLH, BSO, SLN ? PATHOLOGY: A. ?[place] lymph nodes, left pelvic, excision? 2 lymph nodes, negative for malignancy (0/2). B. ?Uterus, cervix, bilateral fallopian tubes and bilateral ovaries, hysterectomy and bilateral salpingo-oophorectomy? Cervix? Negative for neoplasm. Endometrium?Atypical endometrial hyperplasia. ?See comment. Myometrium? Leiomyomata (1.3 cm in greatest dimension, intramural). ?Focal adenomyosis. Serosa?Fibrous adhesions. Right and left ovaries? Endosalpingosis. Right and left fallopian tubes? Benign paratubal cysts. ?Fibrous adhesions. C. ?[place] lymph node, right pelvic, excision? 1 lymph node, negative for malignancy (0/1). SUBJECTIVE/INTERVAL HISTORY: Shannan Jaimes reports that she feels well. No fever or chills. No shortness of breath, cough, or chest pain. No incisional redness, swelling, or drainage. Patient reports that her appetite is good. No abdominal pain, nausea, vomiting, diarrhea, or constipation. No dysuria, gross hematuria, urinary frequency, urinary urgency, or incontinence. Her ECOG performance status is zero (fully active, able to carry on all pre-disease performance without restriction). Mara Jackson APRN.COMPENSATION VICE PRESIDENT OBJECTIVE: VITALS: BP 138/70 (BP Site: Right Arm, BP Position: Sitting, BP Cuff Size: Regular Adult) Pulse 98 Ht 162.6 cm (5' 4 ) Wt (!) 143.3 kg (316 lb) LMP 11/09/2015 (Exact Date) SpO2 99% BMI 54.24 kg/m? HEENT: Normocephalic, atraumatic, mucus membranes moist and no lesions NECK: Supple LUNGS: Clear to auscultation bilaterally. HEART: Regular rate and rhythm, no murmurs. ABDOMEN: Abdomen soft, non-tender, no hepatosplenomegaly. Incision healing well. PELVIC: External genitalia normal. Vagina normal on speculum exam. Uterus, cervix, adnexa surgically absent. No urethral, bladder or pelvic masses. Cuff smooth. Cul de sac negative on rectal exam. No rectal masses. LOWER EXTREMITIES: No pitting edema, no palpable cords and no skin changes. ASSESSMENT: 55 y/o with CAH s/p TLH/BSO/SLN PLAN: 1. Discussed results of pathology and implications with patient. 2. Postop restrictions reviewed. A copy of this office note and a letter were sent to: Dr. 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.890] Prescriptions as of 04/01/2021 Sig: IBUPROFEN 600 MG TABLET Take 1 tablet by mouth every * ACETAMINOPHEN 500 MG TABLET Take 1 tablet by mouth every * MULTIPLE VITAMIN TABLET Take 1 tablet by mouth once d* Problem List As Of Date 04/01/2021 Noted Resolved Menorrhagia [N92.0] 10/08/2014 Obesity, Class III, BMI >= 40 [E66.01] 02/16/2021 Encounter Status:Closed by MARA JACKSON on 04/01/21 [facility] CNOVSPon 03-04-2021 CNOVSP Visit (SP) Office (MIL) SHANNAN JAIMES ([id number]) 1965 F Date Time Provider Department 03/04/21 10:00 AM SATISH VIDALES During your visit today, we recorded the following information about you: Temperature Pulse Blood pressure Weight 98 degrees 68/minute 118/80 145.6 kg Height 1.626 m Satish Vidales MD 03/08/2021 10:02 AM Signed DATE OF SERVICE: 03/04/2021 PROBLEM: Shannan Jaimes presents for postop visit. SURGERY AND DATE: 02/17/2021 EUA, Laparoscopic lysis of adhesions, TLH, BSO, SLN PATHOLOGY: A. [place] lymph nodes, left pelvic, excision? 2 lymph nodes, negative for malignancy (0/2). B. Uterus, cervix, bilateral fallopian tubes and bilateral ovaries, hysterectomy and bilateral salpingo-oophorectomy? Cervix? Negative for neoplasm. Endometrium?Atypical endometrial hyperplasia. See comment. Myometrium? Leiomyomata (1.3 cm in greatest dimension, intramural). ?Focal adenomyosis. Serosa?Fibrous adhesions. Right and left ovaries? Endosalpingosis. Right and left fallopian tubes? Benign paratubal cysts. ?Fibrous adhesions. C. [place] lymph node, right pelvic, excision? 1 lymph node, negative for malignancy (0/1). SUBJECTIVE/INTERVAL HISTORY: Shannan Jaimes reports that she feels well. No fever or chills. No shortness of breath, cough, or chest pain. No incisional redness, swelling, or drainage. Patient reports that her appetite is good. No abdominal pain, nausea, vomiting, diarrhea, or constipation. No dysuria, gross hematuria, urinary frequency, urinary urgency, or incontinence. Her ECOG performance status is zero (fully active, able to carry on all pre-disease performance without restriction). Satish Vidales MD OBJECTIVE: VITALS: BP 118/80 (BP Site: Left Arm, BP Position: Sitting, BP Cuff Size: Large Adult) Pulse 68 Temp 36.7 ?C (98 ?F) (Tympanic) Ht 162.6 cm (5' 4 ) Wt (!) 145.6 kg (321 lb) LMP 11/09/2015 (Exact Date) SpO2 98% BMI 55.10 kg/m? HEENT: Normocephalic, atraumatic, mucus membranes moist and no lesions ABDOMEN: Abdomen soft, non-tender, no hepatosplenomegaly. Incision healing well. PELVIC: Deferred LOWER EXTREMITIES: No pitting edema, no palpable cords and no skin changes. Draw In Hand for exam: DO Rolf ASSESSMENT: 55 y/o with CAH s/p TLH/BSO/SLN. PLAN: 1. Discussed results of pathology and implications with patient. No further gynecologic oncology follow-up needed after 6 week visit. Encouraged routine well-woman visits with Dr. Medina. 2. Postop restrictions reviewed. 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 SENNOSIDES 8.6 MG-DOCUSATE SO* Take 1 tablet by mouth once d* Patient not taking: Reported on 03/04/2021 Problem List As Of Date 03/04/2021 Noted Resolved Menorrhagia [N92.0] 10/08/2014 Obesity, Class III, BMI >= 40 [E66.01] 02/16/2021 Encounter Status:Closed by SATISH VIDALES on 03/08/21 [facility] Sudha 02-18-2021 VERONICAN Telephone (AGGYNONPO B) SHANNAN JAIMES ([id number]) 1965 F Date Time Provider Department 02/18/21 MARA JACKSON (ANALYTICAL DATA SCIENTIST, VERONICA) AGGYNONPOB During your visit today, we recorded the following information about you: Mara Jackson APRN.VERONICA MARTIN 02/18/2021 12:12 PM Signed One incision opened up last night before leaving the hospital. Nurse put steri strip on it. Had some leakage on it last night. Using guaze and maxi pad over night. Changing gauze every 2 hours or so. Advised to call the office if bleeding picks up. Mara Jackson APRN.CNP Allergies As of Date: 02/18/2021 Noted Allergy Reaction PERCODAN (OXYCODONE-ASPIRIN) 05/04/2006 2 - Rash Date Reviewed: 02/17/2021 Reviewed by: Lauren (Rn) MARRY Feliciano - Fully Assessed Reason for Visit: Patient Update [1234] Prescriptions as of 02/18/2021 Sig: IBUPROFEN 600 MG TABLET Take 1 tablet by mouth every * ACETAMINOPHEN 500 MG TABLET Take 1 tablet by mouth every * SENNOSIDES 8.6 MG-DOCUSATE SO* Take 1 tablet by mouth once d* TRAMADOL 50 MG TABLET Take 1 tablet by mouth every * MULTIPLE VITAMIN TABLET Take one(1) tablet daily. Problem List As Of Date 02/18/2021 Noted Resolved Menorrhagia [N92.0] 10/08/2014 Obesity, Class III, BMI >= 40 [E66.01] 02/16/2021 Encounter Status:Closed by MARA JACKSON CNP on 02/18/21 [facility] ANES POSTPROC EVALon 021 ANES POSTPROC EVAL HNO ID: [id number] Author: Jeremy Burgos Service: Anesthesiology Author Type: Physician Type: Anesthesia Postprocedure Evaluation Filed: 02/17/2021 1:21 PM Note Text: POST ANESTHESIA EVALUATION NOTE : 1965 Procedure Summary Date: 02/17/21 Room / Location: [facility] [address] [place] [address] OR Anesthesia Start: 0839 Anesthesia Stop: 1247 Procedures: LAPAROSCOPIC HYSTERECTOMY TOTAL FOR UTERUS 250 G OR LESS W/REMOVAL TUBE(S) AND/OR OVARY(S) (N/A Pelvis) EXAM UNDER ANESTHESIA PELVIC / VAGINAL (N/A Pelvis) LAPAROSCOPY SURGICAL W/RETROPERITONEAL LYMPH NODE SAMPLING SINGLE OR MULTIPLE (N/A ) LYSIS OF ADHESIONS (N/A Abdomen) Diagnosis: Endometrial cancer (HCC) (Endometrial cancer (HCC) [C54.1]) Surgeons: Satish Vidales Responsible Provider: Jeremy Burgos Anesthesia Type: general ASA Status: 2 Anesthesia Type: general Last vitals Vitals Value Taken Time BP 145/120 02/17/21 1315 Temp 37.2 ?C (99 ?F) 02/17/21 1245 Pulse 87 02/17/21 1320 Resp 29 02/17/21 1320 SpO2 100 % 02/17/21 1320 Vitals shown include unvalidated device data. Post Anesthesia Patient Status Patient Evaluation: bedside. Pulmonary Status: breathing comfortably on supplemental oxygen Cardiovascular Status: stable. Intraoperative Events: no significant anesthesia events Recommendation: continue current plan of care. No complications documented. SIGNATURE: Jeremy Burgos MD PATIENT NAME: Shannan Jaimes DATE: February 17, 2021 TIME: 1:21 PM CSN: [id number] [facility] ANES PRE-OPon 02-17-2021 ANES PRE-OP HNO ID: [id number] Author: Jeremy Burgos Service: Anesthesiology Author Type: Physician Type: Anesthesia Preprocedure Evaluation Filed: 02/17/2021 8:21 AM Note Text: ANESTHESIOLOGY DAY OF SURGERY NOTE : 1965 Procedure(s) (LRB): LAPAROSCOPIC HYSTERECTOMY TOTAL FOR UTERUS 250 G OR LESS W/REMOVAL TUBE(S) AND/OR OVARY(S) (N/A) EXAM UNDER ANESTHESIA PELVIC / VAGINAL (N/A) CYSTOSCOPY (N/A) LIMITED LYMPHADENECTOMY PELVIC AND PARA-AORTIC NODES FOR STAGING (N/A) LAPAROSCOPY SURGICAL W/RETROPERITONEAL LYMPH NODE SAMPLING SINGLE OR MULTIPLE (N/A) Surgeon(s): Satish Vidales Estimated body mass index is 55.44 kg/m? as calculated from the following: Height as of 02/11/21: 162.6 cm (5' 4 ). Weight as of 02/11/21: 146.5 kg (323 lb). Most recent hematocrit and potassium results: Hematocrit 46.3 02/05/2021 Potassium 4.1 02/05/2021 Relevant Problems No relevant active problems I - PHYSICAL EVALUATION AIRWAY Patient intubated: No. Mallampati: II. TM distance: >3 FB. Neck ROM: full ROM without neurological symptoms. Mouth opening: adequate. DENTAL Normal dental observations. Dental findings: teeth intact. II - ANESTHESIA PLAN ASA Score: 2 Anesthetic Plan: general Airway type: ETT NPO Status: adequate Monitoring plan: standard ASA. Postoperative analgesic plan: parenteral or oral opioids and multimodal analgesia. Anesthetic Risks, Benefits, Alternatives, Personnel Discussed. Consent obtained from: patient.Patient / Surrogate agrees to blood products: blood products not planned Potential Anesthesia issues that may suggest increased risk of complications or contraindication to planned procedure: none. Vitals Value Taken Time BP 161/73 02/17/21 0708 Pulse 90 02/17/21 0708 Resp 16 02/17/21 0708 Temp 36.7 ?C (98.1 ?F) 02/17/21 0708 SpO2 98 % 02/17/21 0708 Facility-Administered Medications as of 02/17/2021 Medication Dose Route Frequency - lidocaine 10 mg/mL (1 %) 1-2 mg injection (XYLOCAINE) 0.1-0.2 mL INTRADERMAL PRN - lactated ringers iv infusion 5-30 mL/hr INTRAVENOUS CONTINUOUS - [COMPLETED] heparin 5,000 Units injection 5,000 Units SUBCUTANEOUS Pre-Op Once - [COMPLETED] acetaminophen 975 mg tab(s) (TYLENOL) 975 mg ORAL Pre-Op Once - [COMPLETED] gabapentin 600 mg cap(s) (NEURONTIN) 600 mg ORAL Pre-Op Once - ceFAZolin iv piggyback 2 g in D5W (iso-osmotic) 100 mL (ANCEF) 2 g INTRAVENOUS Pre-Op Once Outpatient Medications as of 02/17/2021 Medication Sig - multivitamin (MULTIPLE VITAMIN) ORAL Tab Take one(1) tablet daily. I have interviewed and examined the patient. I have reviewed the medical record and/or the pre-anesthesia evaluation, pertinent labs, and test results. This contains updated information obtained within 48 hours of Surgery/Procedure. SIGNATURE: Jeremy Burgos MD PATIENT NAME: Shannan Jaimes DATE: February 17, 2021 TIME: 8:21 AM CSN: [id number] [facility] BRIEF OP NOTon 02-17-2021 BRIEF OP NOT HNO ID: [id number] Author: Veronica Bansal Service: Gynecology Oncology Author Type: Resident Type: Brief Op Note Filed: 02/17/2021 12:39 PM Note Text: Attestation signed by Satish Vidales at 02/17/2021 10:32 PM See operative note BRIEF OPERATIVE NOTE LOG ID: [id number] SURGERY/PROCEDURE DATE: 02/17/2021 INCISION/PROCEDURE START TIME: 9:20 AM INCISION CLOSE/PROCEDURE END TIME: 12:33 PM SURGEON(S)/PROCEDURALIS T(S) AND PUBLIC BATH ATTENDANT(S): Surgeon(s) and Role: * Satish Vidales - Primary * Veronica Bansal - Resident - Assisting * Vicky Archer MD - Resident - Assisting No Additional Staff SURGERY/PROCEDURE(S): TLH, BSO, SNL, lysis of adhesions ANESTHESIA: General FINDINGS: Extensive omental adhesions, normal appearing uterus, bilateral fallopian tubes with evidence of prior tubal ligation, normal appearing ovaries bilaterally, normal appearing peritoneal surfaces ESTIMATED BLOOD LOSS: 100 mls SPECIMENS: Uterus, cervix, jesusita ovaries, jesusita fallopian tubes, right and left pelvic sentinel lymph nodes COMPLICATIONS: None FLUIDS: 2100 cc LR URINE: 200cc clear, yellow PRE-OP/PRE-PROCEDURE DIAGNOSIS: CAH POST-OP/POST-PROCEDURE DIAGNOSIS: Same as Preop SIGNATURE: Veronica Bansal DO PATIENT NAME: Shannan Jaimes DATE: February 17, 2021 TIME: 12:37 PM [facility] OPERATIVE NOon 02-17-2021 OPERATIVE NO HNO ID: [id number] Author: Satish Vidales Service: Gynecology Oncology Author Type: Physician Type: Operative Report Filed: 02/21/2021 9:53 PM Note Text: SALES AND MARKETING MANAGER OPERATIVE/PROCEDURE REPORT LOG ID: [id number] Surgery/Procedure Date: 02/17/2021 Incision/Procedure Start Time: 9:20 AM Incision Close/Procedure End Time: 12:33 PM Surgeon(s)/Proceduralis t(s) and Gas Desulfurizer(s): Surgeon(s) and Role: * Satish Vidales - Primary * Veronica (Adwoa Bansal - Resident - Assisting * Vicky (Res) MD Gianni - Resident - Assisting Procedures: 1. Exam under anesthesia 2. Laparoscopic lysis of adhesions 3. Total laparoscopic hysterectomy, bilateral salpingo-oophorectomy 4. [place] lymph node mapping, bilateral 5. [place] lymph node biopsy, bilateral Preoperative Diagnosis: 1. Endometrial cancer Postoperative Diagnosis: 1. Endometrial cancer. Indications: This is a 55 y/o female who was referred to or for evaluation and management of complex atypical hyperplasia. We discussed the treatment approach including surgical excision for staging and treatment. We discussed upfront sentinel lymph nodes versus staging based on frozen. After reviewing R/B/A a consent was signed in the office. Findings: 1. No evidence of extrauterine disease on pelvic exam. Cervix grossly normal. 2. On laparoscopic entry dense adhesions from omentum, small bowel, colon to anterior abdominal wall and uterus. 3. Bilateral SLN mapped to external iliac bifurcation. DESCRIPTION OF PROCEDURE: A preoperative huddle was performed in preop per protocol. The patient was then taken to the operating room where general anesthesia was provided. Once the area was secured with an ET tube, she was placed in dorsal lithotomy position using Yellofin stirrups. Care was taken to pad and protect all joints from hyperflexion and extension. We then proceeded with a preoperative time-out per protocol. Ancef were used for antibiotic prophylaxis. Preoperative heparin and pneumo-boots were used for DVT prophylaxis. She was sterilely prepped and draped using ChloraPrep on the abdomen and Betadine for the perineum. Once she was prepped and draped, we proceeded to place a Turner catheter under sterile technique. A speculum was placed in the vagina and the anterior lip of the cervix was grasped with a tenaculum. Dilute ICG at 1mg/ml was injected at 3 and 6 at the cervix Approximately 2 cc total were injected. A VCare was then placed in the routine fashion. New gloves were obtained and attention was turned to the left upper quadrant of the abdominal wall. A direct left upper quadrant entrywas performed with a 5-mm trocar. At this point, we placed additional 5-mm trocar at the level of umbilicus and additional 5-mm one handbreadth lateral to the LUQ port and in the right lower quadrant, a 5-mm port was placed. The patient was then placed in steep Trendelenburg. A significant amount of adhesions from omentum to abdominal wall and to the uterus were encountered. Additionally, small bowel adhesions to the anterior abdominal wall were identified. We used the ligasure device to sharply and bluntly dissected these adhesions for approximately 1 hour in order to complete the procedure. The right retroperitoneum was entered lateral to the IP ligament with the ligasure device. The paravesical and pararectal spaces were then developed. The ureter was mobilized medially. [place] lymph node was identified at the bifurcation of the iliac arteries. Channels were observed to be leading to the sentinel lymph node. The sentinel lymph node was carefully dissected off the underlying iliac vessels and placed in the obturator space for removal later in the case. Attention was then turned to the left retroperitoneum. The retroperitoneum was entered in a similar fashion lateral to the IP ligament. The paravesical and pararectal spaces were developed. The ureter was mobilized medially. Again, a sentinel lymph node was identified in the bifurcation of the iliac vessels. Channels could be appreciated entering into the sentinel lymph node. No other sentinel lymph nodes were observed in the obturator space or the periaortic region. The sentinel lymph node again was carefully dissected using the ligasure off the underlying iliac vessels and stored in the obturator space. We then proceeded with the hysterectomy portion. ? Bilateral round ligaments were doubly cauterized and transected using the ligasure. The anterior leaf of the broad ligament was carefully dissected down to the level of the vesicouterine peritoneum. A bladder flap was developed at this point. Attention was then turned to the posterior leaf of the broad ligament. At this point, we proceeded to doubly cauterized and transected the IP ligaments bilaterally. This was done with a careful visualization of the ureters, lateral and deep to the IP ligaments. In fact, a window was made from the periton (more content not included)... [facility] SURGICAL PATHOLOGYon 021 CASE REPORT [facility] Comment on above: Order Comment: Speci men Type: TISSUE SPECIMEN Result Comment: Surg ica Pathology Report Case: [id number] Authorizing Provider: Satish Vidales Collected: 02/17/2021 11:09 AM Ordering Location: [facility] Received: 02/18/2021 06:53 AM Pathologist: Precious Graff MD Specimens: A) - SENTINEL LYMPH NODE LEFT, Left Pelvic Sentinal Lymph Node B) - UTERUS, CERVIX, BILATERAL FALLOPIAN TUBES AND BILATERAL OVARIES C) - SENTINEL LYMPH NODE RIGHT, right pelvic sentinel lymph node Performed By: #### S #### [facility] CLIA [id number] [address] [place] [address] DIAGNOSIS COMMENT Normal [facility] Comment on above: Order Comment: Speci men Type: TISSUE SPECIMEN Result Comment: A, C . The sentinel lymph nodes were examined using the sentinel lymph node protocol including deeper H&E sections and 10 cytokeratin AE1/3 immunostains which are negative. B. The entire endomyometrial junction was submitted for histologic evaluation. Select slides of part B were reviewed at the [facility] gynecologic pathology consensus conference on 02/23/2021 and the diagnosis above reflects the consensus opinion of those present. Laboratory Developed Test (LDT) Disclaimer: Performance characteristics of immunohistochemical, immunofluorescent and chromogenic in-situ hybridization tests have been determined by the performing laboratory within [facility]s [facility] [place] ([facility], [facility], or [facility]) in a manner consistent with CLIA requirements. One or more of these tests have not been cleared or approved by the FDA. [facility] is regulated under CLIA as qualified to perform high-complexity testing. These tests are used for clinical purposes. They should not be regarded as investigational or for research. Positive and negative controls stain appropriately. Performed By: #### S #### [facility] CLIA [id number] [address] [place] [address] FINAL DIAGNOSIS Normal [facility] Comment on above: Order Comment: Speci men Type: TISSUE SPECIMEN Result Comment: A. S entinel lymph nodes, left pelvic, excision 2 lymph nodes, negative for malignancy (0/2). B. Uterus, cervix, bilateral fallopian tubes and bilateral ovaries, hysterectomy and bilateral salpingo-oophorectomy Cervix Negative for neoplasm. EndometriumAtypical endometrial hyperplasia. See comment. Myometrium Leiomyomata (1.3 cm in greatest dimension, intramural). Focal adenomyosis. SerosaFibrous adhesions. Right and left ovaries Endosalpingosis. Right and left fallopian tubes Benign paratubal cysts. Fibrous adhesions. C. [place] lymph node, right pelvic, excision 1 lymph node, negative for malignancy (0/1). Performed By: #### S #### [facility] CLIA [id number] [address] [place] [address] FINAL PERFORMING LAB Normal [facility] Comment on above: Order Comment: Speci men Type: TISSUE SPECIMEN Result Comment: Diag nostic interpretation performed at [facility], [address] [place] [address] CLIA# [id number] Gluing Machine Operator Automatic: Rajinder Alfaro M.D. Performed By: #### S #### [facility] CLIA [id number] [address] [place] [address] GROSS DESCRIPTION Normal [facility] Comment on above: Order Comment: Speci men Type: TISSUE SPECIMEN Result Comment: A. S ENTINEL LYMPH NODE LEFT. Received in formalin labeled left pelvic sentinel lymph node are two nodules resembling lymph nodes. The first nodule is a long-yellow rubbery nodule measuring 0.6 x 0.4 x 0.4 cm. The second nodule is a long-yellow nodule resembling a lymph node measuring 2.0 x 2.0 x 1.1 cm. The possible lymph nodes are sectioned and totally submitted as follows: A1 - first lymph node sectioned and totally submitted; A2-A3 - second lymph node serially sectioned and totally submitted. B. UTERUS, CERVIX, BILATERAL FALLOPIAN TUBES AND BILATERAL OVARIES. Received in formalin labeled uterus, cervix, bilateral fallopian tubes, and ovaries is a specimen consisting of an entire uterus with attached cervix together with both fallopian tubes and ovaries. The specimen has an aggregate weight of 165 gm. The uterus with cervix measures 10.6 x 6.6 x 5.2 cm. A length of vaginal cuff is not attached. The cervix is unremarkable. The external os is round in contour. The endocervical canal is 4.5 cm in length and displays mild erosions. The endometrial cavity is 4.0 cm in length and 2.6 cm in greatest width. The endometrium is 0.1 cm in thickness and appears red, hemorrhagic, and glistening. Polyps are not seen. The myometrium measures 2.3 cm in thickness and is distorted by three white whorled rubbery nodules ranging in size from 0.6 to 1.3 cm in greatest dimension. The serosal aspect is dull long with adhered fatty tissue on the anterior surface. The right ovary weighs 2 gm and measures 2.0 x 1.6 x 1.1 cm. It is firm and has a red-brown smooth surface. Cysts are not present. The right fallopian tube is 6 cm in length. The fimbriated end has a distorted appearance. There are adhesions between the tube and ovary. The left ovary weighs 3 gm and measures 2.7 x 1.9 x 1.1 cm. It has a dull white-long smooth firm surface. Upon sectioning cysts are not present. The left fallopian tube measures 5.0 cm in length. It has a distorted appearing fimbriated end. There are adhesions between the tube and ovary. The endometrium is totally submitted. Tissue is submitted as follows: B1 - anterior cervix 12 o'clock; B2 - posterior cervix 6 o'clock; B3 - endocervical junction; B4-B5 - anterior wall full thickness (B5 with adhered fat); B6-B12 - anterior endometrium totally submitted; B13 - posterior wall full thickness section (with third largest white whorled rubbery nodule totally submitted); B14-B22 - posterior endometrium totally submitted (B19-B20 second largest white whorled rubbery nodule totally submitted); B23-B25 - largest white whorled rubbery nodule totally submitted; B26 - ocean import representative section of fat adhered to anterior surface of uterus; B27 - ocean import representative sections of right ovary; B28 - ocean import representative sections of right fallopian tube; B29 - right fimbriated end totally submitted; B30-B31 - ocean import representative sections of left ovary; B32 - ocean import representative sections of left fallopian tube; B33 - left fimbriated end totally submitted. C. SENTINEL LYMPH NODE RIGHT. Received in formalin labeled right pelvic sentinel lymph node is a yellow-long rubbery nodule resembling a lymph node measuring 1.6 x 1.4 x 1.2 cm. The specimen is serially sectioned and totally submitted in formalin in 2 cassettes. KVB/mariana Gross examination performed at [facility], [address] [place] [address] CLIA# [id number] Performed By: #### S #### [facility] CLIA [id number] [address] [place] [address] PreOp/PreProc COVIDon 2020 SARS-CoV-2 (COVID-19) RNA AUDREY+probe Ql (Unsp spec) UPPER RESPIRATORY TRACT SWAB Normal [facility] Comment on above: Performed By: #### P OCOVD #### [facility] [address] [place] [id number] SARS-CoV-2 (COVID-19) RNA AUDREY+probe Ql (Unsp spec) Negative Normal Negative for COVID19 (SARS CoV2) by PCR. [facility] Comment on above: Result Comment: This test was developed and its performance characteristics determined by [facility] [place]. This test has been authorized by FDA under an Emergency Use Authorization (EUA). This test has been validated in accordance with the FDA's Guidance Document Policy for Diagnostics Testing in Laboratories Certified to Perform High Complexity Testing under CLIA prior to Emergency use Authorization for Coronavirus Disease 2019 during the Public Health Emergency issued on January 04, 2020. Test performed by [facility], [facility] [place], [address] [place] [address]. Performed By: #### P OCOVD #### [facility] [address] [place] [id number] HISTORY PHYSICALon HISTORY PHYSICAL HNO ID: [id number] Author: Petra Wang Service: ? Author Type: Nurse Practitioner Type: HANDP Filed: 02/12/2021 7:35 AM Note Text: HISTORY AND PHYSICAL EXAMINATION SERVICE DATE: 02/11/2021 SERVICE TIME: 2:06 PM PRIMARY CARE PHYSICIAN: Jeet Farnsworth MD REASON FOR VISIT: Shannan Jaimes is a 55 year old female who is scheduled for Procedure(s): EXAM UNDER ANESTHESIA PELVIC / VAGINAL (N/A) LAPAROSCOPIC HYSTERECTOMY TOTAL FOR UTERUS 250 G OR LESS W/REMOVAL TUBE(S) AND/OR OVARY(S) (N/A) CYSTOSCOPY (N/A) LIMITED LYMPHADENECTOMY PELVIC AND PARA-AORTIC NODES FOR STAGING (N/A) LAPAROSCOPY SURGICAL W/RETROPERITONEAL LYMPH NODE SAMPLING SINGLE OR MULTIPLE (N/A) at the request of Dr. Satish Vidales for routine HANDP. My final recommendation will be communicated back to the requesting physician by way of shared medical record or letter. Subjective The patient has the following: ACTIVE PROBLEM LIST Menorrhagia PAST MEDICAL HISTORY Diagnosis Date - Endometrial cancer (HCC) - Menorrhagia PAST SURGICAL HISTORY Procedure Laterality Date - DELIVERY ONLY 1999 , low cervical, X-2 last one in 1999 - COLONOSCOP W/ OR W/O BRSH SPEC 09/18/2018 Colonoscopy - DANDC, DIAG AND/OR THERAPEUTIC 01/14/2021 hysteroscopy - HYSTEROSCOPY BX W/WO DANDC 12/20/2013 - PAST SURGICAL HISTORY OF 1969 EYE SURGERY (STABISMUS) - TUBAL LIGATION, 1999 - UNSPECIFIED ORAL SURGERY PROCEDURE, BY REPORT 1987 WISDOM TEETH EXTRACTION FAMILY HISTORY Problem Relation Age of Onset - Hypertension Father - Lipids Father High Cholesterol - other (mild stroke) Father Social History Tobacco Use - Smoking status: Never Smoker - Smokeless tobacco: Never Used Substance Use Topics - Alcohol use: No - Drug use: No Prior to Admission medications as of 02/11/21 1358 Medication Sig Last Dose Taking multivitamin (MULTIPLE VITAMIN) ORAL Tab Take one(1) tablet daily. No medication comments found. ALLERGIES Allergen Reactions - Percodan [Oxycodone* Rash CHIEF COMPLAINT: Endometrial cancer (HCC) (C54.1) HPI: Shannan Jaimes is a 55 year old female present in presurgical testing.shehad an abnormal pap test. She has a hysteroscopy a DANDC and a biopsy and she was told she had endometrial cancer. She denies heavy bleeding and painful bleeding. She rates the pain 0/10. Surgery was recommended and she agrees to proceed as planned. She is scheduled for EXAM UNDER ANESTHESIA PELVIC / VAGINAL (N/A) LAPAROSCOPIC HYSTERECTOMY TOTAL FOR UTERUS 250 G OR LESS W/REMOVAL TUBE(S) AND/OR OVARY(S),CYSTOSCOPY LIMITED LYMPHADENECTOMY PELVIC AND PARA-AORTIC NODES FOR STAGING, LAPAROSCOPY SURGICAL W/RETROPERITONEAL LYMPH NODE SAMPLING SINGLE OR MULTIPLE on 02/17/[address] Vidales Surgery will be at [facility] Have you been in contact with someone with known coronavirus/Covid 19? no Have you had surgery or pre testing at [facility] in the past 3 years? no REVIEW OF SYSTEMS: General: No weight loss, malaise or fevers. Neurological: No history of TIA's, stroke, ENERGY ADMINISTRATOR tumor, impaired sensorium, hemiplegia, paraplegia or quadraplegia. No neurological symptoms or problems. Negative for: headaches and seizures Respiratory: No history of current cough or dyspnea, or pneumonia in the past 6 weeks. No history of respiratory/pulmonary symptoms or problems. Negative for: asthma, COPD, tobacco use and obstructive sleep apnea Cardiovascular: No history of HTN requiring medication, no history of angina, CHF, SC, cardiac surgery or stents. Denies rest pain, gangrene or revascularization/amput ation for PVD. No history of cardiovascular symptoms or problems. GI: No history of GI symptoms or problems. No history of esophageal varices, recent ascites, or ETOH greater than 2 drinks per day. Negative for: abdominal pain, nausea and vomiting : No history of dysuria, frequency or incontinence, stones or chronic kidney disease. No difficulty urinating, nocturia > 1 time per night or hematuria. SALES AND MARKETING MANAGER: + endometrial cancer. + hx monophagia.+ post menopause Endocrine: No history of diabetes. Has not taken steroids within the past 30 days. No history of endocrinological symptoms or problems. Negative for: hypothyroidism Hematology: No history of bleeding or clotting disorder. Pt is not taking anti-coagulation or platelet medications. No history of hematological symptoms or problems. Oncology: + endometrial cancer Psych: No history of psychiatric symptoms or problems. Negative for: anxiety and depression Musculoskeletal: Negative for joint pain or swelling, back pain or muscle pain. Skin: Negative for lesions, rash and itching. Objective PHYSICAL EXAM: General: alert and oriented and healthy appearance. Pertinent negatives noted - not distressed. Skin: normal color, no rash or lesions. HEENT: Cardiovascular: regular rate and rhythm, normal S1 and S2, no rub, murmurs, or gallop. Respirat (more content not included)... Normal [facility] Basic metabolic 2000 panelon 02-05-2021 Anion gap [Moles/Vol] 10 mmol/L Normal 9-18 [facility] Comment on above: Order Comment: Speci men Type: BLOOD SPECIMEN Performed By: #### 2 4321-2 #### [facility] CLIA [id number] [address] [place] [address] Calcium [Mass/Vol] 9.1 mg/dL Normal 8.5-10.2 [facility] Comment on above: Order Comment: Speci men Type: BLOOD SPECIMEN Performed By: #### 2 4321-2 #### [facility] CLIA [id number] [address] [place] [address] Chloride [Moles/Vol] 101 mmol/L Normal 97-105 [facility] Comment on above: Order Comment: Speci men Type: BLOOD SPECIMEN Performed By: #### 2 4321-2 #### [facility] CLIA [id number] [address] [place] [address] CO2 [Moles/Vol] 26 mmol/L Normal 22-30 [facility] Comment on above: Order Comment: Speci men Type: BLOOD SPECIMEN Performed By: #### 2 4321-2 #### [facility] CLIA [id number] [address] [place] [address] Creatinine [Mass/Vol] 0.64 mg/dL Normal 0.58-0.96 [facility] Comment on above: Order Comment: Speci men Type: BLOOD SPECIMEN Performed By: #### 2 4321-2 #### [facility] CLIA [id number] [address] [place] [address] GFR/1.73 sq M.predicted MDRD (S/P/Bld) [Vol rate/Area] mL/min/{1.73_m2} Normal [facility] Comment on above: Order Comment: Speci men Type: BLOOD SPECIMEN Result Comment: >60 eGFR (Estimated GFR) Units of measure: mL/min/1.73 meters squared eGFR is derived from the reexpressed MDRD Study equation using the following parameters: serum creatinine, age, gender and race. The creatinine assay has been calibrated to be traceable to IDMS. An eGFR <60 mL/min/1.73m2 for >3 months is consistent with chronic kidney disease. Refer to KDOQI guidelines for clinical interpretation. In patients with unstable renal function, e.g. those with acute kidney injury, the eGFR may not accurately reflect actual GFR. Performed By: #### 2 4321-2 #### [facility] CLIA [id number] [address] [place] [address] Glucose [Mass/Vol] 118 mg/dL High 74-99 [facility] Comment on above: Order Comment: Jan morales Type: BLOOD SPECIMEN Result Comment: The [place] Diabetes Association (ADA) provides guidance for cutoff values for fasting glucose and random glucose. The ADA defines fasting as no caloric intake for at least 8 hours. Fasting plasma glucose results between 100 to 125 mg/dL indicate increased risk for diabetes (prediabetes). Fasting plasma glucose results greater than or equal to 126 mg/dL meet the criteria for diagnosis of diabetes. In the absence of unequivocal hyperglycemia, results should be confirmed by repeat testing. In a patient with classic symptoms of hyperglycemia or hyperglycemic crisis, random plasma glucose results greater than or equal to 200 mg/dL meet the criteria for diagnosis of diabetes. Reference: Standards of Medical Care in Diabetes 2016, [place] Diabetes Association. Diabetes Care. 2016.39(Suppl 1). Performed By: #### 2 4321-2 #### [facility] CLIA [id number] [address] [place] [address] Potassium [Moles/Vol] 4.1 mmol/L Normal 3.7-5.1 [facility] Comment on above: Order Comment: Speci men Type: BLOOD SPECIMEN Performed By: #### 2 4321-2 #### [facility] CLIA [id number] [address] [place] [address] Sodium [Moles/Vol] 137 mmol/L Normal 136-144 [facility] Comment on above: Order Comment: Speci men Type: BLOOD SPECIMEN Performed By: #### 2 4321-2 #### [facility] CLIA [id number] [address] [place] [address] Urea nitrogen [Mass/Vol] 11 mg/dL Normal 7-21 [facility] Comment on above: Order Comment: Speci men Type: BLOOD SPECIMEN Performed By: #### 2 4321-2 #### [facility] CLIA [id number] [address] [place] [address] CBC panel Auto (Bld)on 02-05 Erythrocyte distribution width (RBC) [Ratio] 14.6 % Normal 11.5-15.0 [facility] Comment on above: Order Comment: Speci men Type: BLOOD SPECIMEN Performed By: #### 5 8410-2 ####[facility] [id number] [place] [address] Hematocrit (Bld) [Volume fraction] 46.3 % High 36.0-46.0 [facility] Comment on above: Order Comment: Speci men Type: BLOOD SPECIMEN Performed By: #### 5 8410-2 ####[facility] [id number] [place] [address] Hemoglobin (Bld) [Mass/Vol] 14.8 g/dL Normal 11.5-15.5 [facility] Comment on above: Order Comment: Speci men Type: BLOOD SPECIMEN Performed By: #### 5 8410-2 ####[facility] [id number] [place] [address] MCH (RBC) [Entitic mass] 28.0 pg Normal 26.0-34.0 [facility] Comment on above: Order Comment: Speci men Type: BLOOD SPECIMEN Performed By: #### 5 8410-2 ####[facility] [id number] [place] [address] MCHC (RBC) [Mass/Vol] 32.0 g/dL Normal 30.5-36.0 [facility] Comment on above: Order Comment: Speci men Type: BLOOD SPECIMEN Performed By: #### 5 8410-2 ####[facility] [id number] [place] [address] MCV (RBC) [Entitic vol] 87.5 fL Normal 80.0-100.0 [facility] Comment on above: Order Comment: Speci men Type: BLOOD SPECIMEN Performed By: #### 5 8410-2 ####[facility] [id number] [place] [address] Nucleated RBC (Bld) [#/Vol] 10*3/uL Normal <0.01 [facility] Comment on above: Order Comment: Speci men Type: BLOOD SPECIMEN Performed By: #### 5 8410-2 ####[facility] [id number] [place] [address] Platelet mean volume (Bld) [Entitic vol] 10.3 fL Normal 9.0-12.7 [facility] Comment on above: Order Comment: Speci men Type: BLOOD SPECIMEN Performed By: #### 5 8410-2 ####[facility] [id number] [place] [address] Platelets (Bld) [#/Vol] 282 10*3/uL Normal 150-400 [facility] Comment on above: Order Comment: Speci men Type: BLOOD SPECIMEN Performed By: #### 5 8410-2 ####[facility] [id number] [place] [address] RBC (Bld) [#/Vol] 5.29 10*6/uL High 3.90-5.20 [facility] Comment on above: Order Comment: Speci men Type: BLOOD SPECIMEN Performed By: #### 5 8410-2 ####[facility]ORY[facility] [id number] [place] [address] WBC (Bld) [#/Vol] 10.83 10*3/uL Normal 3.70-11.00 [facility] Comment on above: Order Comment: Speci men Type: BLOOD SPECIMEN Performed By: #### 5 8410-2 ####[facility] [id number] [place] [address] CNOVSPon 02-05-2021 CNOVSP Visit (SP) Office (AGGYNONPOB) THEODOREEVERSegundo Rose ([id number]) 1965 F Date Time Provider Department 02/05/21 10:00 AM SATISH VIDALES During your visit today, we recorded the following information about you: Temperature Pulse Blood pressure Weight 97.7 degrees 86/minute 160/80 147 kg Height 1.626 m Satish Vidales MD 02/05/2021 3:03 PM Signed DATE OF SERVICE: 02/05/2021 PROBLEM: Shannan Jaimes is a consult from Dr. Medina for CAH. SUBJECTIVE/HPI: Ms. Jaimes is a 55 year old female who presented with PMB and thickened endometrium. Attempted EMB in office and unable due to [facility]/DANDC. 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 She otherwise denies any heavy active bleeding. No SOB or CP. HISTORIES: PAST GYNECOLOGIC HISTORY: OB History T2 L2 SAB0 TAB0 Ectopic0 Multiple0 Live Births0 LMP: Patient's last menstrual period was 11/09/2015 (exact date). Hormonal contraceptives: No. HRT use: No. History of abnormal pap: No. Last pap: 10/13/20 Last mammogram: ?2014 Last colonoscopy: 09/18/18 PAST SURGICAL HISTORY Procedure Laterality Date - DELIVERY ONLY , low cervical, X-2 - COLONOSCOP W/ OR W/O BRSH SPEC 09/18/2018 Colonoscopy - [place], DIAG AND/OR THERAPEUTIC 01/14/2021 hysteroscopy - HYSTEROSCOPY BX W/WO [facility] 12/20/2013 - PAST SURGICAL HISTORY OF 1969 EYE SURGERY (STABISMUS) - TUBAL LIGATION, - UNSPECIFIED ORAL SURGERY PROCEDURE, BY REPORT WISDOM TEETH EXTRACTION PAST MEDICAL HISTORY Diagnosis Date - Menorrhagia FAMILY HISTORY Problem Relation Age of Onset - Hypertension Father - Lipids Father High Cholesterol SOCIAL HISTORY Social History Tobacco Use - Smoking status: Never Smoker - Smokeless tobacco: Never Used Substance Use Topics - Alcohol use: No - Drug use: No REVIEW OF SYSTEMS: GENERAL: No recent weight loss, fever, chills, malaise or fatigue. HEENT: No changes in hearing or vision, frequent or severe headaches, nose bleeds or other nasal problems. NECK: No lumps, goiter, pain, significant neck swelling, or difficulty swallowing. RESPIRATORY: No shortness of breath, cough, wheezing, recent pneumonia (within last 6 weeks) or recent URI (within 2 weeks). CARDIOVASCULAR: No angina with activity or at rest, lower extremity edema, or palpitations. No recent SC (within 6 months), cardiac stent, cardiac surgery, gangrene, or PVD. BREAST: No breast lumps, skin changes, nipple discharge, or adenopathy. GI: See HPI. No prior history of esophageal varicies or ascites. Patient denies drinking >2 alcoholic beverages a day. : See HPI. No history of renal failure, dialysis, or recent UTI (<6 weeks). MUSCULOSKELETAL: No muscle weakness or joint pain. SKIN: No skin lesions, rashes, or itching. PSYCH: No sleep disturbances, depression, bipolar disorder, drug dependency/history of drug dependency, or recent psychosocial stressors. HEMATOLOGY/LYMPHOLOGY: No prolonged bleeding, bruising easily, swollen nodes, or anemia. No prior history of a blood clot or clotting disorder. No prior history of a bleeding disorder. Not on chronic anticoagulant/platelet medications. ENDOCRINE: No cold or heat intolerance, polyuria, polydipsia, polyphagia, goiter, hot flashes or night sweats. No prior diagnosis of diabetes or thyroid disorder. No chronic steroid use. NEURO: No history of paralysis, stroke/TIA, seizures, tremors, syncope, or paresthesias. OBJECTIVE: VITALS: BP 160/80 (BP Site: Left Arm, BP Position: Sitting, BP Cuff Size: Large Adult) Pulse 86 Temp 36.5 ?C (97.7 ?F) (Tympanic) Ht 162.6 cm (5' 4 ) Wt (!) 147 kg (324 lb) LMP 11/09/2015 (Exact Date) SpO2 98% BMI 55.61 kg/m? GENERAL: Patient is a well developed, well nourished female. She is alert, oriented, pleasant and cooperative. SKIN: Color, texture, turgor normal. No rashes or lesions. HEENT: Normocephalic, atraumatic, mucus membranes moist and no lesions LUNGS: Clear to auscultation bilaterally. HEART: Regular rate and rhythm, no murmur, clicks or rubs. ABDOMEN: Abdomen soft, non-tender, no hepatosplenomegaly. PELVIC: External genitalia, anus and urethral meatus are normal in appearance and without lesions. Vagina and cervix are normal in appearance on speculum examination. Bimanual pelvic and rectovaginal examination were negative for urethral, bladder or pelvic masses, parametrial thickening or cul-de-sac nodularity. Uterus normal size and non-tender. There were no rectal masses. LOWER EXTREMITIES: No pitting edema, no palpable cords and no skin changes. All available records reviewed today and discussed with patient. Reviewed Dr. Medina notes Reviewed pathology reports and operative notes ASSESSMENT: 55 y/o with CAH. 2. Prior classical x 2 PLAN: # CAH: Today we reviewed the natural history of comple (more content not included)... Normal [facility] CONFIRM BLOOD TYPEon 021 ABO O Normal [facility] Comment on above: Order Comment: Speci men Type: BLOOD SPECIMEN Performed By: #### C ONABO ####[facility] [id number] [place] [address] Rh Nom (Bld) Negative Normal [facility] Comment on above: Order Comment: Speci men Type: BLOOD SPECIMEN Performed By: #### C ONABO ####[facility] [id number] [place] [address] PT panel Coag (PPP)on 2020 INR Coag (PPP) [Relative time] 1.0 {INR} Normal 0.9-1.3 [facility] Comment on above: Order Comment: Speci men Type: BLOOD SPECIMEN Result Comment: Ghislaine min K Antagonist (VKA) Therapeutic Range: INR 2 to 3 (Target INR of 2.5) Note: For patients treated with VKA drugs, such as warfarin, the [place] [employer] 2012 Guideline recommends a therapeutic INR range of 2 to 3 (target INR of 2.5). This recommendation includes high-risk patients with antiphospholipid syndrome with previous arterial or venous thromboembolism, current-generation mechanical or bioprosthetic aortic heart valve replacement. Note: Patients with mechanical aortic valve replacement and additional risk factors for thromboembolic events (atrial fibrillation, previous thromboembolism, LV dysfunction, hypercoagulable conditions) or an older generation mechanical AVR (i.e., ball in-Cage) or any mechanical MVR should have a INR therapeutic range of 2.5 to 3.5 (target INR of 3). Qian GH, et al. Chest 2012, 141:7S-47S Bert RA, et al. [facility] 2017, 70: 252-289 Performed By: #### 3 4528-0, 43700-9 #### [facility] CLIA [id number] [address] [place] [address] PT Coag (PPP) [Time] 10.8 s Normal 9.7-13.0 [facility] Comment on above: Order Comment: Speci men Type: BLOOD SPECIMEN Performed By: #### 3 4528-0, 59671-4 #### [facility] CLIA [id number] [address] [place] [address] TYPE AND SCREEN,30 DAYon ABO O Normal [facility] Comment on above: Order Comment: Speci men Type: BLOOD SPECIMEN Performed By: #### T SCR30 ####[facility] [id number] [place] [address] HISTORICAL AB SCR STATUS Negative Normal [facility] Comment on above: Order Comment: Speci men Type: BLOOD SPECIMEN Performed By: #### T SCR30 ####[facility] [id number] [place] [address] Rh Nom (Bld) Negative Normal [facility] Comment on above: Order Comment: Speci men Type: BLOOD SPECIMEN Performed By: #### T SCR30 ####[facility] [id number] [place] [address] TYPE AND SCREEN EXPIRATION 03/07/2021 23:59 Normal [facility] Comment on above: Order Comment: Speci men Type: BLOOD SPECIMEN Performed By: #### T SCR30 ####[facility] [id number] [place] [address] aPTT PPPon 02-05-2021 aPTT Coag (PPP) [Time] 28.8 s Normal 23.0-32.4 [facility] Comment on above: Order Comment: Speci men Type: BLOOD SPECIMEN Performed By: #### 3 [id number], [id number] #### [facility] CLIA [id number] [place] [address] [facility] Telephone (OBGYWM) SHANNAN JAIMES ([id number]) 1965 F Date Time Provider Department 01/18/21 DAYNA GONGORA During your visit today, we recorded the following information about you: Dayna Godfrey MD 01/18/2021 1:57 PM Signed Please call patient and schedule post op visit this week or next. Please do not alarm the patient but I Need to discuss findings with patient and decide on treatment plan. Pt has hyperplasia so I would like to review Mirena IUD vs Progesterone therapy. Thank you. Adriana Haney RN 01/18/2021 2:19 PM Signed Patient notified and voiced understanding. Appointment scheduled. Adriana Haney RN Allergies As of Date: 01/18/2021 Noted Allergy Reaction PERCODAN (OXYCODONE-ASPIRIN) 05/04/2006 2 - Rash Date Reviewed: 01/04/2021 Reviewed by: Nelsy Villegas Ma - Fully Assessed Reason for Visit: Follow Up [171] Prescriptions as of 01/18/2021 Sig: MISOPROSTOL 200 MCG TABLET Take two tablets PO night bef* IBUPROFEN 600 MG TABLET Take 1 tablet by mouth every * MULTIPLE VITAMIN TABLET Take one(1) tablet daily. Problem List As Of Date 01/18/2021 Noted Resolved Menorrhagia [N92.0] 10/08/2014 Encounter Status:Closed by ADRIANA HANEY [facility] ([id number]) 1965 F Date Time Provider Department 01/18/21 DAYNA GONGORA During your visit today, we recorded the following information about you: Dayna Godfrey MD 01/18/2021 5:51 PM Signed I called patient personally to review Pathology results but there was no answer. I told patient she can try to call office around 8:45 am tomorrow and if I miss her call will call her back. Consult for SALES AND MARKETING MANAGER ONC- Complex hyperplasia with atypia. Order placed. Dayna Godfrey MD 01/19/2021 9:02 AM Signed I spoke with patient- she understands recommendation to see SALES AND MARKETING MANAGER ONC and to likely proceed with Hysterectomy and possible staging if needed due to Complex hyperplasia with atypia. Consult order placed. Please assist in scheduling with Dr. Satish Whitten at [facility]. Pt states she can go for consultation any day. Please make sure pathology gets uploaded to [facility] chart. Thank you. Samantha Cruz RN 01/19/2021 9:14 AM Signed Spoke with Dr. Vidales office. Patient is scheduled for MondayFebruary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
== END | disposition home or self-care (01) ==
LOC: POLAB3 16:01
PROVIDERS: PCP Family Medicine Geriatric Medicine; Visit Provider Family Medicine Geriatric Medicine
DX: E11.65 Type 2 diabetes mellitus with hyperglycemia (principal); I10 Essential (primary) hypertension
CPT/HCPCS: 36415; 80053; 84443; 85025

== ENCOUNTER → 2024-09-04 | Outpatient (CLI) | payer BC, SELFPAY ==
[2024-09-06 08:13] LABS: HEPATITIS B SURFACE AG Negative (Negative); Hep C Antibodies Non Reactive (Non Reactive); Hepatitis A IgM Antibody Negative (Negative); Hepatitis B Core AB IgM Negative (Negative)
== END | disposition home or self-care (01) ==
LOC: LAB 15:47
PROVIDERS: PCP Family Medicine Geriatric Medicine; Referring Provider Family Medicine Geriatric Medicine; Visit Provider Family Medicine Geriatric Medicine
DX: R74.8 Abnormal levels of other serum enzymes (principal)
CPT/HCPCS: 36415; 80074

== ENCOUNTER → 2024-09-06 | Outpatient (CLI) | payer BC, SELFPAY ==
--- NOTE | 2024-09-06 08:24 | US_ITS ---
STUDY: ABDOMINAL ULTRASOUND - RIGHT UPPER QUADRANT REASON FOR VISIT: Female, 58 years old ELEVATED LIVER ENZ TECHNIQUE: Ultrasound evaluation of the right upper quadrant was performed with real-time and static julien-scale imaging. TECHNICAL QUALITY: Limited. COMPARISON: 09/25/2020. FINDINGS: Liver: The liver measures 19.5 cm. There is increased echogenicity consistent with fatty infiltration. The bile ducts are within normal limits. There is hepatic color flow. The direction of portal flow is hepatopetal. There is no demonstrated mass lesion. Gallbladder: Normal distended gallbladder. The gallbladder wall measures 2 mm. There is a negative sonographic Mkceon''s sign. There is no pericholecystic fluid. There is a solitary echogenic gallstone within the gallbladder. Common Bile Duct (C.B.D.): The common bile duct measures 4 mm. Pancreas: Normal size of the head, body and tail of the pancreas. There is normal echogenicity of the pancreas. There is no demonstrated pancreatic mass or cyst. Right Kidney: Normal size of the right kidney. The right kidney measures 11.5 cm. Normal renal cortex. The right cortex measures 1.3 cm. There is no demonstrated renal mass or cyst. There is no right hydronephrosis. US/Abdomen Limited IMPRESSION: Limited as above. Cholelithiasis. Fatty liver. Electronically Signed: Shiva Robb MD at 22:58 EDT ,
== END | disposition home or self-care (01) ==
LOC: US 08:22
PROVIDERS: PCP Family Medicine Geriatric Medicine; Referring Provider Family Medicine Geriatric Medicine; Visit Provider Family Medicine Geriatric Medicine
DX: R74.8 Abnormal levels of other serum enzymes (principal)
CPT/HCPCS: 76705

== ENCOUNTER 2024-09-17 14:32 | Outpatient (RCR) | payer BC, SELFPAY | END 2024-10-05 23:59 | LOC: NS 14:32 | PROVIDERS: PCP Family Medicine Geriatric Medicine; Referring Provider Family Medicine Geriatric Medicine; Visit Provider Family Medicine Geriatric Medicine | DX: Z71.3 Dietary counseling and surveillance (principal); E11.65 Type 2 diabetes mellitus with hyperglycemia | CPT/HCPCS: 97802 ==

== ENCOUNTER → 2024-09-23 | Outpatient (CLI) | payer BC, SELFPAY ==
--- NOTE | 2024-09-23 09:25 | US_ITS ---
STUDY: ABDOMINAL ULTRASOUND - ELASTOGRAPHY REASON FOR VISIT: Female, 58 years old. Fatty infiltration of the liver. TECHNIQUE: Liver stiffness measurements were obtained on a [employer]anner RS 85 ultrasound machine using a CA 1-7 probe following the SRU guidelines. 3 measurements were obtained using a 2-D-SWE method. TheIQR/M was 12% suggesting a quality data set. TECHNICAL QUALITY: Adequate. COMPARISON: Comparison is made with prior study dated October 15, 2020 and September 06, 2024. FINDINGS: Liver: There is no demonstrated mass lesion. Fatty infiltration of the liver. Median liver stiffness measured 9.7 kPa. Abdomen: There is no demonstrated mass lesion. US/Elastography Parenchyma/Organ IMPRESSION: Liver stiffness measures 9.7 kPa compatible with F2-F3 (Mild to moderate liver fibrosis) Metavir score. Electronically Signed: Trip Carl MD at 12:58 EST ,
== END | disposition home or self-care (01) ==
LOC: US 09:24
PROVIDERS: PCP Family Medicine Geriatric Medicine; Referring Provider Family Medicine Geriatric Medicine; Visit Provider Family Medicine Geriatric Medicine
DX: K76.0 Fatty (change of) liver, not elsewhere classified (principal)
CPT/HCPCS: 76981

== ENCOUNTER 2024-10-22 14:31 | Outpatient (RCR) | payer BC, SELFPAY | END 2024-11-05 23:59 | LOC: NS 14:31 | PROVIDERS: PCP Family Medicine Geriatric Medicine; Referring Provider Family Medicine Geriatric Medicine; Visit Provider Family Medicine Geriatric Medicine | DX: Z71.3 Dietary counseling and surveillance (principal); E11.65 Type 2 diabetes mellitus with hyperglycemia | CPT/HCPCS: 97803 ==

== ENCOUNTER → 2024-11-22 | Outpatient (CLI) | payer BC, SELFPAY ==
[2024-11-22 10:31] LABS: Absolute Lymphocyte Count 2.65 X10^3/uL (0.83-4.51); Absolute Neutrophil Count 6.8 X10^3/uL (2.0-7.7); Basophil# 0.04 X10^3/uL; Basophil% 0.4 % (0-1); Hematocrit 43.8 % (37-47); Hemoglobin 13.9 g/dL (12.0-15.0); Lymphocyte # 2.65 X10^3/ul (0.83-4.51); Lymphocyte % 26.4 % (19-41); Mean Corp Hgb Conc 31.7 g/dL (32-36); Mean Corpuscular Volume 88.1 fL (81-99); Mean Platelet Vol. 10.2 fl (6.2-12.0); Monocyte# 0.49 X10^3/uL; Monocyte% 4.9 % (0-10); NRBC Flagged by Analyzer 0 % (0-5); Neutrophil # 6.79 X10^3/uL (2.7-7.7); Neutrophil % 67.7 % (47-70); Platelet Count 280 K/mm3 (150-450); RBC Distribution Width CV 13.3 % (11.6-14.6); RBC Distribution Width SD 43.2 fl (35.1-43.9); Red Blood Count 4.97 M/mm3 (4.2-5.4)
[2024-11-22 11:12] LABS: ALB/GLOB Ratio 0.8 RATIO (0.9-2.4); AST(SGOT) 29 U/L (15-37); Alanine Aminotransfer ALT/SGPT 38 U/L (13-56); Albumin, Serum 3.4 g/dL (3.2-5.0); Alkaline Phosphatase 89 U/L (45-117); Anion Gap 8 (5-15); BUN 16 mg/dL (7-18); BUN/Creat Ratio 15.2 RATIO (10-20); Calcium,Total 8.8 mg/dL (8.5-10.1); Chloride 102 mmol/L (98-107); Creatinine, Serum 1.05 mg/dL (0.55-1.02); EST Glomerular Filtration Rate 57 mL/min (>60); Est Glom Filt Rate - Afr Amer 69 mL/min (>60); Glucose 263 mg/dL (74-106); Potassium 4.2 mmol/L (3.5-5.1); Protein, Total 7.4 g/dL (6.4-8.2); Sodium Level 137 mmol/L (136-145)
== END | disposition home or self-care (01) ==
LOC: POLAB3 10:17
PROVIDERS: PCP Family Medicine Geriatric Medicine; Visit Provider Family Medicine Geriatric Medicine
DX: E11.65 Type 2 diabetes mellitus with hyperglycemia (principal); I10 Essential (primary) hypertension

== ENCOUNTER → 2024-12-17 | Outpatient (CLI) | payer BC, SELFPAY ==
[2024-12-17 17:16] LABS: Anion Gap 9 (5-15); BUN 21 mg/dL (7-18); BUN/Creat Ratio 19.1 RATIO (10-20); Calcium,Total 8.9 mg/dL (8.5-10.1); Chloride 99 mmol/L (98-107); EST Glomerular Filtration Rate 54 mL/min (>60); Est Glom Filt Rate - Afr Amer 65 mL/min (>60); Glucose 169 mg/dL (74-106); Potassium 3.4 mmol/L (3.5-5.1); Sodium Level 137 mmol/L (136-145)
== END | disposition home or self-care (01) ==
LOC: LAB 16:08
PROVIDERS: PCP Family Medicine Geriatric Medicine; Referring Provider Family Medicine Geriatric Medicine; Visit Provider Family Medicine Geriatric Medicine
DX: I10 Essential (primary) hypertension (principal)
CPT/HCPCS: 36415; 80048

== ENCOUNTER 2024-12-31 16:15 | Outpatient (RCR) | payer BC, SELFPAY | END 2025-01-03 23:59 | LOC: NS 16:15 | PROVIDERS: PCP Family Medicine Geriatric Medicine; Referring Provider Family Medicine Geriatric Medicine; Visit Provider Family Medicine Geriatric Medicine | DX: Z71.3 Dietary counseling and surveillance (principal); E11.65 Type 2 diabetes mellitus with hyperglycemia | CPT/HCPCS: 97803 ==

== ENCOUNTER → 2025-01-07 | Outpatient (CLI) | payer BC, SELFPAY ==
[2025-01-07 18:42] LABS: Anion Gap 12 (5-15); BUN 20 mg/dL (4-19); Calcium,Total 8.8 mg/dL (7.6-11.0); Carbon Dioxide 22.4 mmol/L (21.0-32.0); Chloride 103 mmol/L (98-108); Creatinine, Serum 1.17 mg/dL (0.70-1.20); EST Glomerular Filtration Rate 53 (>60); Glucose 121 mg/dL (70-99); Potassium 4.2 mmol/L (3.3-5.1); Sodium Level 138 mmol/L (133-145)
== END | disposition home or self-care (01) ==
LOC: POLAB3 13:50
PROVIDERS: PCP Family Medicine Geriatric Medicine; Visit Provider Family Medicine Geriatric Medicine
DX: I10 Essential (primary) hypertension (principal)
CPT/HCPCS: 36415; 80048

== ENCOUNTER → 2025-03-03 | Outpatient (CLI) | payer BC, SELFPAY ==
[2025-03-03 17:43] LABS: Absolute Lymphocyte Count 3.07 X10^3/uL (0.83-4.51); Absolute Neutrophil Count 6.4 X10^3/uL (2.0-7.7); Basophil# 0.04 X10^3/uL; Basophil% 0.4 % (0-1); Eosinophil# 0.24 X10^3/uL; Eosinophils% 2.3 % (0-5); Hemoglobin 13.2 g/dL (12.0-15.0); Lymphocyte # 3.07 X10^3/ul (0.83-4.51); Lymphocyte % 29.6 % (19-41); Mean Corpuscular Hgb 28.7 pg (27.0-32.0); Mean Platelet Vol. 10.2 fl (6.2-12.0); Monocyte# 0.59 X10^3/uL; Monocyte% 5.7 % (0-10); NRBC Flagged by Analyzer 0 % (0-5); Neutrophil % 61.7 % (47-70); Platelet Count 270 K/mm3 (150-450); RBC Distribution Width CV 13.9 % (11.6-14.6); RBC Distribution Width SD 43.5 fl (35.1-43.9); White Blood Count 10.4 K/mm3 (4.4-11.0)
[2025-03-03 17:52] LABS: ALB/GLOB Ratio 1.2 RATIO (0.9-2.4); AST(SGOT) 27 U/L (<=31); Alanine Aminotransfer ALT/SGPT 32 U/L (<=34); Alkaline Phosphatase 81 U/L (35-104); Anion Gap 11 (5-15); BUN 24 mg/dL (4-19); BUN/Creat Ratio 24.6 RATIO (10-20); Calcium,Total 9.5 mg/dL (7.6-11.0); Carbon Dioxide 22.4 mmol/L (21.0-32.0); Chloride 103 mmol/L (98-108); Creatinine, Serum 0.99 mg/dL (0.70-1.20); EST Glomerular Filtration Rate 65 (>60); Globulin 3.2 g/dL (2.2-4.2); Glucose 144 mg/dL (70-99); Potassium 4.2 mmol/L (3.3-5.1); Protein, Total 7.3 g/dL (5.9-8.4); Sodium Level 137 mmol/L (133-145); Total Bilirubin 0.24 mg/dL (0.00-1.30)
== END | disposition home or self-care (01) ==
LOC: LAB 16:59
PROVIDERS: PCP Family Medicine Geriatric Medicine; Referring Provider Family Medicine Geriatric Medicine; Visit Provider Family Medicine Geriatric Medicine
DX: E11.65 Type 2 diabetes mellitus with hyperglycemia (principal); I10 Essential (primary) hypertension
CPT/HCPCS: 36415; 80053; 84443; 85025

== ENCOUNTER → 2025-04-03 | Outpatient (CLI) | payer BC, SELFPAY ==
--- NOTE | 2025-04-03 15:17 | BI_ITS ---
EXAM: SCRN MAMM (CAD)W/ROSIO BILAT DATE: 04/03/2025 CLINICAL HISTORY: F, Age 59 y/o , SCREENING No family history. BREAST CANCER RISK ASSESSMENT: Not assessed. TECHNIQUE: Bilateral screening digital breast tomosynthesis with 2D and 3D images. Computer aided detection. COMPARISON: Prior exam(s) dated February 13, 2023.. FINDINGS: TISSUE DENSITY: The breast tissue is composed of scattered area of fibroglandular density. Bilateral Breast Mammographic Findings: No significant masses, calcifications or other abnormalities are identified. Stable 3 mm well-defined nodule with a fatty hilum in the upper lateral aspect of the right breast suggestive of a small lymph node. Stable small benign-appearing axillary lymph nodes. No suspicious masses, areas of developing architectural distortion, or suspicious calcifications. There has been no significant interval change. BI/SCRN MAMM (CAD)W/ROSIO BILAT IMPRESSION: OVERALL FINAL ASSESSMENT: BIRADS 2 BENIGN FINDING RECOMMENDATION: Routine annual follow-up in 1 Year A letter with findings and recommendations will be mailed to the patient. Reading Location: [place] [id number]
== END | disposition home or self-care (01) ==
LOC: OPBI 15:16
PROVIDERS: PCP Family Medicine Geriatric Medicine; Referring Provider Family Medicine Geriatric Medicine; Visit Provider Family Medicine Geriatric Medicine
DX: Z12.31 Encounter for screening mammogram for malignant neoplasm of breast (principal)
CPT/HCPCS: 77063; 77067

== ENCOUNTER → 2025-06-03 | Outpatient (CLI) | payer BC, SELFPAY ==
[2025-06-03 16:43] LABS: Hematocrit 40.6 % (37-47); Hemoglobin 13.2 g/dL (12.0-15.0); Immature Granulocytes Count 0.030 X10^3/uL (0.0-0.0); Mean Corp Hgb Conc 32.5 g/dL (32-36); Mean Corpuscular Volume 88.1 fL (81-99); Mean Platelet Vol. 10.0 fl (6.2-12.0); NRBC Flagged by Analyzer 0 % (0-5); Platelet Count 289 K/mm3 (150-450); RBC Distribution Width CV 13.6 % (11.6-14.6); RBC Distribution Width SD 43.9 fl (35.1-43.9); Red Blood Count 4.61 M/mm3 (4.2-5.4); White Blood Count 11.0 K/mm3 (4.4-11.0)
[2025-06-03 17:57] LABS: AST(SGOT) 26 U/L (<=31); Alanine Aminotransfer ALT/SGPT 25 U/L (<=34); Albumin, Serum 4.0 g/dL (3.4-4.8); Alkaline Phosphatase 74 U/L (35-104); Anion Gap 15 (5-15); BUN 16 mg/dL (4-19); BUN/Creat Ratio 16.8 RATIO (10-20); Calcium,Total 9.0 mg/dL (7.6-11.0); Carbon Dioxide 21.4 mmol/L (21.0-32.0); Chloride 101 mmol/L (98-108); Globulin 3.1 g/dL (2.2-4.2); Glucose 125 mg/dL (70-99); Potassium 4.3 mmol/L (3.3-5.1)
[2025-06-04 00:19] LABS: Xtra Tube Kwok EXTRA TUBE
== END | disposition home or self-care (01) ==
LOC: POLAB3 16:18
PROVIDERS: PCP Family Medicine Geriatric Medicine; Visit Provider Family Medicine Geriatric Medicine
DX: E11.65 Type 2 diabetes mellitus with hyperglycemia (principal); I10 Essential (primary) hypertension
CPT/HCPCS: 36415; 80053; 84443; 85025

== ENCOUNTER → 2025-06-05 | Outpatient (CLI) | payer BC, SELFPAY ==
--- OUTSIDE RECORDS SUMMARY | 2025-06-05 07:13 | XMS RPT_ITS | CCD ---
Author Organization [facility] Care Team Providers Care Addressing Machine Operator Name Role Phone Javad AYALA, Dr. Jeet Coulter Primary Care Provider [phone] Javad AYALA, Dr. Jeet Coulter Attending Provider Dr. Jeet Farnsworth MD, Chi Referring Provider Javad, Jeet Chi Referring Unavailable Javad, Jeet Chi Primary Care Unavailable Javad, Jeet Chi Attending Unavailable Javad, Jeet Chi Referring Unavailable Javad, Jeet Chi Primary Care Unavailable Javad, Jeet Chi Attending Unavailable Javad, Jeet Chi Attending Unavailable Javad, Jeet Chi Primary Care Unavailable Javad, Jeet Chi Referring Unavailable Javad, Jeet Chi Referring Unavailable Javad, Jeet Chi Primary Care Unavailable Javad, Jeet Chi Attending Unavailable Javad, Jeet Chi Attending Unavailable Javad, Jeet Chi Primary Care Unavailable Javad, Jeet Chi Primary Care Unavailable Javad, Jeet Chi Attending Unavailable Javad, Jeet Chi Referring Unavailable Javad, Jeet Chi Primary Care Unavailable Javad, Jeet Chi Attending Unavailable Javad, Jeet Chi Referring Unavailable Javad, Jeet Chi Primary Care Unavailable Javad, Jeet Chi Attending Unavailable Javad, Jeet Chi Referring Unavailable Javad, Jeet Chi Attending Unavailable Javad, Jeet Chi Primary Care Unavailable Javad, Jeet Chi Primary Care Unavailable Javad, Jeet Chi Referring Unavailable Javad, Jeet Chi Attending Unavailable Javad, Jeet Chi Attending Unavailable Javad, Jeet Chi Primary Care Unavailable Javad, Jeet Chi Referring Unavailable Javad, Jeet Chi Attending Unavailable Javad, Jeet Chi Primary Care Unavailable Javad, Jeet Chi Referring Unavailable Javad, Jeet Chi Primary Care Unavailable Javad, Jeet Chi Attending Unavailable Javad, Jeet Chi Referring Unavailable Javad, Jeet Chi Primary Care Unavailable Javad, Jeet Chi Attending Unavailable Allergies Allergy Classification Reported Allergen(s) Allergy Type Date of Onset Reaction(s) Facility (5 sources) Aspirin Drug Allergy 01-07-2021 [facility] (5 sources) oxyCODONE Drug Allergy 01-07-2021 [facility] (1 source) Aspirin Drug Allergy 01-07-2021 [facility]ository (1 source) oxyCODONE Drug Allergy 01-07-2021 [facility] Repository Medications Current Medications Medication Drug Class(es) Dates Sig (Normalized) Sig (Original) Multivitamin With Minerals (3 sources) Start: 11-03-2020 Multivitamin With Minerals Active 1 EACH PO DAILY November 03, 2020 2:52pm Start: 11-03-2020 Multivitamin W ith Minerals Active 1 EACH PO DAILY November 03, 2020 12:00am Start: 11-03-2020 Multivitamin W ith Minerals Active 1 EACH PO DAILY November 03, 2020 1:00am Multivitamin With Minerals 1 EACH tablet (2 sources) Start: 11-03-2020 take 1 tablet by mouth once daily Multivitamin With Minerals 1 EACH tablet Active 1 NMA PO DAILY November 03, 2020 1:00am Problems Active Problems Problem Classification Problem Date Documented Da te Episodic/Chronic Diabetes mellitus with complications (1 source) Type 2 diabetes mellitus with hyperglycemia; Translations: [Type 2 diabetes mellitus with hyperglycemia] Onset: 03-06-2025 Chronic Essential hypertension (1 source) Essential (primary) hypertension; Translations: [Essential (primary) hypertension] Onset: 01-21-2025 Chronic Other liver diseases (1 source) Fatty (change of) liver, not elsewhere classified; Translations: [Fatty (change of) liver, not elsewhere classified] Onset: 10-22-2024 Chronic Other screening for suspected conditions (not mental disorders or infectious disease) (1 source) Encounter for screening mammogram for malignant neoplasm of breast; Translations: [Encounter for screening mammogram for malignant neoplasm of breast] Onset: 04-08-2025 Episodic Past or Other Problems Problem Classification Problem Date Documented Da te Episodic/Chronic Other liver diseases (1 source) Abnormal levels of other serum enzymes; Translations: [Abnormal levels of other serum enzymes] Onset: 09-26-2024 Episodic Results Test Name Value Interpretation Reference Range Facility Breast imaging reportOrdered By: Trip Carl on 04-04-2025 Study report [facility] Imaging Services [address] [place], [place] [address] SCRN MAMM (CAD)W/ROSIO BILAT MR#: [id number] Acct: [id number] Name: SHANNAN JAIMES Rep #: [id number] : 1965 F 59 From: Dung Carl MD PCP: Dr. Jeet Farnsworth MD Status: ROBY DELA CRUZ Study:SCRN MAMM (CAD)W/ROSIO BILAT Date of Exa m: 04/03/25 Exam# [id number] Ordering Dr: Jeet Farnsworth MD EXAM: SCRN MAMM (CAD)W/ROSIO BILAT DATE: 04/03/2025 CLINICAL HISTORY: F, Age 59 y/o , SCREENING No family history. BREAST CANCER RISK ASSESSMENT: Not assessed. TECHNIQUE: Bilateral screening digital breast tomosynthesis with 2D and 3D images. Computeraided detection. COMPARISON: Prior exam(s) dated February 13, 2023.. FINDINGS: TISSUE DENSITY: The breast tissue is composed of scattered area of fibroglandular density. Bilateral Breast Mammographic Findings: No significant masses, calcifications or other abnormalities are identified. Stable 3 mm well-defined nodule with a fatty hilum in the upper lateral aspect of the right breast suggestive of a small lymph node. Stable small benign-appearing axillary lymph nodes. No suspicious masses, areas of developing architectural distortion, or suspicious calcifications. There has been no significant interval change. BI/SCRN MAMM (CAD)W/ROSIO BILAT IMPRESSION: OVERALL FINAL ASSESSMENT: BIRADS 2 BENIGN FINDING RECOMMENDATION: Routine annual follow-up in 1 Year A letter with findings and recommendations will be mailed to the patient. Reading Location: [facility]--1 CC: Dr. Jeet Farnsworth MD ~ Wet Roaster: Signed [facility] SCRN MAMM (CAD)W/ROSIO BILATo n 04-03-2025 SCRN MAMM (CAD)W/ROSIO BILAT [facility] Imaging Services [address] [place] [id number] SCRN MAMM (CAD)W/ROSIO BILAT MR#: [id number] Acct: [id number] Name: SHANNAN JAIMES Rep #: [id number] : 1965 F 59 From: Trip burgess MD PCP: Dr. Jeet Farnsworth MD Status: REG CLI Study: SCRN MAMM (CAD)W/ROSIO BILAT Date of Exam: 03/07 07/31 Exam# [id number] Ordering Dr: Jeet Farnsworth MD EXAM: SCRN MAMM (CAD)W/ROSIO BILAT DATE: 04/03/2025 CLINICAL HISTORY: F, Age 59 y/o , SCREENING No family history. BREAST CANCER RISK ASSESSMENT: Not assessed. TECHNIQUE: Bilateral screening digital breast tomosynthesis with 2D and 3D images. Computer aided detection. COMPARISON: Prior exam(s) dated February 13, 2023.. FINDINGS: TISSUE DENSITY: The breast tissue is composed of scattered area of fibroglandular density. Bilateral Breast Mammographic Findings: No significant masses, calcifications or other abnormalities are identified. Stable 3 mm well- defined nodule with a fatty hilum in the upper lateral aspect of the right breast suggestive of a small lymph node. Stable small benign-appearing axillary lymph nodes. No suspicious masses, areas of developing architectural distortion, or suspicious calcifications. There has been no significant interval change. BI/SCRN MAMM (CAD)W/ROSIO BILAT IMPRESSION: OVERALL FINAL ASSESSMENT: BIRADS 2 BENIGN FINDING RECOMMENDATION: Routine annual follow-up in 1 Year A letter with findings and recommendations will be mailed to the patient. Reading Location: [place] [address] CC: Dr. Jeet Farnsworth MD Wet Roaster: Signed Normal [facility] Absolute lymphocyte countOrd ered By: Jeet Farnsworth on 03-03-2025 Lymphocytes Auto (Unsp spec) [#/Vol] 3.07 10*3/uL 0.83-4.51 [facility] Absolute neutrophil countOrd ered By: Jeet Farnsworth on 03-03-2025 Neutrophils (Bld) [#/Vol] 6.4 10*3/uL 2.0-7.7 [facility] Anion gap in Serum or Plasma Ordered By: Jeet Farnsworth on 03-03-2025 Anion gap [Moles/Vol] 11 mmol/L 5-15 [facility] Automated lymphocyte count a s percentage of total leukocytesOrdered By: Jeet Farnsworth on 03-03-2025 Lymphocytes/100 WBC Auto (Unsp spec) 29.6 % 19-41 [facility] BUN/creatinine ratioOrdered By: Jeet Farnsworth on 03-03-2025 Urea nitrogen/Creatinine [Mass ratio] 24.6 mg/mg High 10-20 [facility] Basophil percentageOrdered B y: Jeet Farnsworth on 03-03-2025 Basophils/100 WBC (Bld) 0.4 % 0-1 [facility] Bilirubin, totalOrdered By: Jeet Farnsworth on 03-03-2025 Bilirubin [Mass/Vol] 0.24 mg/dL 0.00-1.30 [facility] CBC W/Diff, Automatedon 02-05 Absolute Lymph 3.07 X10 3/uL Normal 0.83-4.51 [facility] Comment on above: Performed By: #### L 500.2500 #### [facility] [address] [place] [address] Absolute Neut 6.4 X10 3/uL Normal 2.0-7.7 [facility] Comment on above: Performed By: #### L 500.2500 #### [facility] [address] [facility] [place] [address] Basophils/100 WBC (Bld) 0.4 % Normal 0-1 [facility] Comment on above: Performed By: #### L 500.2500 #### [facility] [address] [place], [address] Eosinophils/100 WBC (Bld) 2.3 % Normal 0-5 [facility] Comment on above: Performed By: #### L 500.2500 #### [facility] [address] [facility] [place] [address] Erythrocyte distribution width (RBC) [Ratio] 13.9 % Normal 11.6-14.6 [facility] Comment on above: Performed By: #### L 500.2500 #### [facility] [address] [place], [address] Hematocrit (Bld) [Volume fraction] 40.0 % Normal 37-47 [facility] Comment on above: Performed By: #### L 500.2500 #### [facility] [address] [place], [address] Hemoglobin (Bld) [Mass/Vol] 13.2 g/dL Normal 12.0-15.0 [facility] Comment on above: Performed By: #### L 500.2500 #### [facility] [address] [place], [address] IG% 0.300 Normal 0.0-0.9 [facility] Comment on above: Result Comment: IG% - Immature Granulocytes (promyelocytes, myelocytes and metamyelocytes) > 1% indicates that a LEFT SHIFT is Present. Performed By: #### L 500.2500 #### [facility] [place], [address] Lymphocytes/100 WBC (Bld) 29.6 % Normal 19-41 [facility] Comment on above: Performed By: #### L 500.2500 #### [facility] [address] [place], [place] [address] [place], [address] MCH (RBC) [Entitic mass] 28.7 pg Normal 27.0-32.0 [facility] Comment on above: Performed By: #### L 500.2500 #### [facility] [address] [place], [address] MCHC (RBC) [Mass/Vol] 33.0 g/dL Normal 32-36 [facility] Comment on above: Performed By: #### L 500.2500 #### [facility] [address] [place], [address] MCV (RBC) [Entitic vol] 87.0 fL Normal 81-99 [facility] Comment on above: Performed By: #### L 500.2500 #### [facility] [address] [place], [address] Monocytes/100 WBC (Bld) 5.7 % Normal 0-10 [facility] Comment on above: Performed By: #### L 500.2500 #### [facility] [address] [place], [address] Neutrophils/100 WBC (Bld) 61.7 % Normal 47-70 [facility] Comment on above: Performed By: #### L 500.2500 #### [facility] [address] [place], [address] Nucleated RBC (Bld) [#/Vol] 0 10*3/uL Normal 0-5 [facility] Comment on above: Performed By: #### L 500.2500 #### [facility] [address] [place], [address] Platelet mean volume (Bld) [Entitic vol] 10.2 fL Normal 6.2-12.0 [facility] Comment on above: Performed By: #### L 500.2500 #### [facility] [address] [place], [address] Platelets (Bld) [#/Vol] 270 10*3/uL Normal 150-450 [facility] Comment on above: Performed By: #### L 500.2500 #### [facility] [address] [place], [address] RBC (Bld) [#/Vol] 4.60 10*6/uL Normal 4.2-5.4 [facility] Comment on above: Performed By: #### L 500.2500 #### [facility] [address] [place], [address] RDW SD 43.5 fl Normal 35.1-43.9 [facility] Comment on above: Performed By: #### L 500.2500 #### [facility] [address] [place], [address] WBC (Bld) [#/Vol] 10.4 10*3/uL Normal 4.4-11.0 [facility] Comment on above: Performed By: #### L 500.2500 #### [facility] [address] [place], [address] Carbon dioxide, total [Moles /volume] in Central venous bloodOrdered By: Jeet Farnsworth on 03-03-2025 CO2 [Moles/Vol] 22.4 mmol/L 21.0-32.0 [facility] Chloride assayOrdered By: Vinicio Farnsworth on 03-03-2025 Chloride [Moles/Vol] 103 mmol/L 98-108 [facility] Comprehensive Metabolic Prof ilon 03-03-2025 Albumin [Mass/Vol] 4.0 g/dL Normal 3.4-4.8 [facility] Comment on above: Performed By: #### L 500.2500 #### [facility] [address] [place], [address] Albumin/Globulin [Mass ratio] 1.2 {ratio} Normal 0.9-2.4 [facility] Comment on above: Performed By: #### L 500.2500 #### [facility] [address] [place], [address] ALK PHOS 81 U/L Normal 35-104 [facility] Comment on above: Performed By: #### L 500.2500 #### [facility] [address] [place], [address] ALT [Catalytic activity/Vol] 32 U/L Normal <=34 [facility] Comment on above: Performed By: #### L 500.2500 #### [facility] [address] [place], [address] AST [Catalytic activity/Vol] 27 U/L Normal <=31 [facility] Comment on above: Performed By: #### L 500.2500 #### [facility] [address] [place], [address] Bilirubin [Mass/Vol] 0.24 mg/dL Normal 0.00-1.30 [facility] Comment on above: Performed By: #### L 500.2500 #### [facility] [address] [place], [address] BUN/CRE 24.6 RATIO High 10-20 [facility] Comment on above: Performed By: #### L 500.2500 #### [facility] [address] [place], [address] Calcium [Mass/Vol] 9.5 mg/dL Normal 7.6-11.0 [facility] Comment on above: Performed By: #### L 500.2500 #### [facility] [address] [place], [address] Chloride [Moles/Vol] 103 mmol/L Normal 98-108 [facility] Comment on above: Performed By: #### L 500.2500 #### [facility] [address] [place], [address] CO2 [Moles/Vol] 22.4 mmol/L Normal 21.0-32.0 [facility] Comment on above: Performed By: #### L 500.2500 #### [facility] [address] [place], [address] Creatinine [Mass/Vol] 0.99 mg/dL Normal 0.70-1.20 [facility] Comment on above: Performed By: #### L 500.2500 #### [facility] [address] [place], [address] GAP 11 Normal 5-15 [facility] Comment on above: Performed By: #### L 500.2500 #### [facility] [address] [place], [address] GFR/1.73 sq M.predicted among non-blacks MDRD (S/P/Bld) [Vol rate/Area] 65 mL/min/{1.73_m2} Normal >60 [facility] Comment on above: Result Comment: mL/m in/1.73m2 CKD-EPI Creatinine Equation (2020) Performed By: #### L 500.2500 #### [facility] [address] [place], [address] Globulin (S) [Mass/Vol] 3.2 g/dL Normal 2.2-4.2 [facility] Comment on above: Performed By: #### L 500.2500 #### [facility] [address] [place], [address] Glucose [Mass/Vol] 144 mg/dL High 70-99 [facility] Comment on above: Performed By: #### L 500.2500 #### [facility] [address] [place], [address] Potassium [Moles/Vol] 4.2 mmol/L Normal 3.3-5.1 [facility] Comment on above: Performed By: #### L 500.2500 #### [facility] [address] [place], [address] Sodium [Moles/Vol] 137 mmol/L Normal 133-145 [facility] Comment on above: Performed By: #### L 500.2500 #### [facility] [address] [place], [address] T PROT 7.3 g/dL Normal 5.9-8.4 [facility] Comment on above: Performed By: #### L 500.2500 #### [facility] [address] [place], [address] Urea nitrogen [Mass/Vol] 24 mg/dL High 4-19 [facility] Comment on above: Performed By: #### L 500.2500 #### [facility] [address] [place], [address] Eosinophil percentageOrdered By: [facility] 03-03-2025 Eosinophils/100 WBC (Bld) 2.3 % 0-5 [facility] Erythrocyte distribution wid th ratioOrdered By: [facility] on 03-03-2025 Erythrocyte distribution width (RBC) [Ratio] 13.9 % 11.6-14.6 [facility] Erythrocyte distribution wid th standard deviationOrdered By: [facility] 03-03-2025 Erythrocyte distribution width (RBC) [Ratio] 43.5 fl 35.1-43.9 [facility] Glomerular filtration rate ( GFR) estimation/1.73 sq m using serum, plasma, or whole bOrdered By: [facility] on 03-03-2025 GFR/1.73 sq M.predicted among non-blacks MDRD (S/P/Bld) [Vol rate/Area] 65 mL/min/{1.73_m2} >60 [facility] Comment on above: mL/min/1.73m2 CKD-EP I Creatinine Equation (2020) Hematocrit Auto (Bld) [Volum e fraction]Ordered By: [facility] 03-03-2025 Hematocrit (Bld) [Volume fraction] 40.0 % 37-47 [facility] Hemoglobin measurementOrdere d By: [facility] 03-03-2025 Hemoglobin (Bld) [Mass/Vol] 13.2 g/dL 12.0-15.0 [facility] Immature granulocytes/100 WB C Auto (Bld)Ordered By: Jeet Javad 03-03-2025 Immature granulocytes/100 WBC (Bld) 0.300 % 0.0-0.9 [facility] Comment on above: IG% - Immature Granu locytes (promyelocytes, myelocytes and metamyelocytes) > 1% indicates that a LEFT SHIFT is Present. Laboratory - Chemistry and C hemistry - challengeOrdered By: [facility] 03-03-2025 AST [Catalytic activity/Vol] 27 U/L <32 [facility] MCV (mean corpuscular volume ) determinationOrdered By: [facility] 03-03-2025 MCV (RBC) [Entitic vol] 87.0 fL 81-99 [facility] Mean corpuscular hemoglobin (MCH) determinationOrdered By: Jeet Farnsworth on 03-03-2025 MCH (RBC) [Entitic mass] 28.7 pg 27.0-32.0 [facility] Mean corpuscular hemoglobin concentration (MCHC) determinationOrdered By: Jeet Farnsworth on 03-03-2025 MCHC (RBC) [Mass/Vol] 33.0 g/dL 32-36 [facility] Mean platelet volume determi nationOrdered By: Jeet Farnsworth on 03-03-2025 Platelet mean volume (Bld) [Entitic vol] 10.2 fL 6.2-12.0 [facility] Monocyte percentageOrdered B y: Jeet Farnsworth on 03-03-2025 Monocytes/100 WBC (Bld) 5.7 % 0-10 [facility] Neutrophil percentageOrdered By: Jeet Farnsworth on 03-03-2025 Neutrophils/100 WBC (Bld) 61.7 % 47-70 [facility] Nucleated red blood cell per centageOrdered By: Jeet Farnsworth on 03-03-2025 Nucleated RBC/100 WBC (Bld) [Ratio] 0 % 0-5 [facility] Platelet countOrdered By: Vinicio Farnsworth on 03-03-2025 Platelets (Bld) [#/Vol] 270 10*3/uL 150-450 [facility] Potassium measurement (mass/ volume)Ordered By: Jeet Farnsworth 03-03-2025 Potassium (Unsp spec) [Mass/Vol] 4.2 mmol/L 3.3-5.1 [facility] RBC Auto (Bld) [#/Vol]Ordere d By: Jeet Farnsworth 03-03-2025 RBC (Bld) [#/Vol] 4.60 10*6/uL 4.2-5.4 [facility] Serum creatinine measurement (mass/volume)Ordered By: Jeet Farnsworth 03-03-2025 Creatinine [Mass/Vol] 0.99 mg/dL 0.70-1.20 [facility] Serum globulin measurementOr dered By: Jeet Farnsworth 03-03-2025 Globulin (S) [Mass/Vol] 3.2 g/dL 2.2-4.2 [facility] Serum glucose measurement (m ass/volume)Ordered By: Jeet Farnsworth on 03-03-2025 Glucose [Mass/Vol] 144 mg/dL High 70-99 [facility] Serum or plasma alanine lundberg otransferase (ALT) measurementOrdered By: Jeet Farnsworth on 03-03-2025 ALT [Catalytic activity/Vol] 32 U/L <35 [facility] Serum or plasma albumin petr urement (mass/volume)Ordered By: Jeet Farnsworth on 03-03-2025 Albumin [Mass/Vol] 4.0 g/dL 3.4-4.8 [facility] Serum or plasma albumin/glob ulin mass ratioOrdered By: Jeet Farnsworth on 03-03-2025 Albumin/Globulin [Mass ratio] 1.2 {ratio} 0.9-2.4 [facility] Serum or plasma alkaline abbey sphatase measurementOrdered By: Jeet Farnsworth 03-03-2025 ALP [Catalytic activity/Vol] 81 U/L 35-104 [facility] Serum or plasma calcium petr urement (mass/volume)Ordered By: Jeet Farnsworth 03-03-2025 Calcium [Mass/Vol] 9.5 mg/dL 7.6-11.0 [facility] Serum or plasma urea nitroge n measurement (mass/volume)Ordered By: Jeet Farnsworth 03-03-2025 Urea nitrogen [Mass/Vol] 24 mg/dL High 4-19 [facility] Sodium levelOrdered By: Jeet Farnsworth 03-03-2025 Sodium [Moles/Vol] 137 mmol/L 133-145 [facility] TSH DL <= 0.005 mIU/L QnOrde red By: Jeet Farnsworth on 03-03-2025 TSH Qn 1.480 uIU/mL 0.300-4.200 [facility] Thyroid Stim Hormone (TSH)on 03-03-2025 TSH 1.480 uIU/mL Normal 0.300-4.200 [facility] Comment on above: Performed By: #### L 500.9263 #### [facility] [place], [address] Total proteinOrdered By: Jeet Farnsworth on 03-03-2025 Protein [Mass/Vol] 7.3 g/dL 5.9-8.4 [facility] White blood cell (WBC) count Ordered By: Jeet Farnsworth on 03-03-2025 WBC (Bld) [#/Vol] 10.4 10*3/uL 4.4-11.0 [facility] Anion gap in Serum or Plasma Ordered By: Jeet Farnsworth on 01-07-2025 Anion gap [Moles/Vol] 12 mmol/L 03-20 [facility] BUN/creatinine ratioOrdered By: Jeet Farnsworth on 01-07-2025 Urea nitrogen/Creatinine [Mass ratio] 17.0 mg/mg 08-25 [facility] Basic Metabolic Profile (BMP )on 01-07-2025 BUN/CRE 17.0 RATIO Normal 08-25 [facility] Comment on above: Performed By: #### L 500.2500 #### [facility] [address] [place], [address] Calcium [Mass/Vol] 8.8 mg/dL Normal 7.6-11.0 [facility] Comment on above: Performed By: #### L 500.2500 #### [facility] [address] [place], [address] Chloride [Moles/Vol] 103 mmol/L Normal 98-108 [facility] Comment on above: Performed By: #### L 500.2500 #### [facility] [address] [place], [address] CO2 [Moles/Vol] 22.4 mmol/L Normal 21.0-32.0 [facility] Comment on above: Performed By: #### L 500.2500 #### [facility] [address] [place], [address] Creatinine [Mass/Vol] 1.17 mg/dL Normal 0.70-1.20 [facility] Comment on above: Performed By: #### L 500.2500 #### [facility] [address] [place], [address] GAP 12 Normal 03-20 [facility] Comment on above: Performed By: #### L 500.2500 #### [facility] [address] [place], [address] GFR/1.73 sq M.predicted among non-blacks MDRD (S/P/Bld) [Vol rate/Area] 53 mL/min/{1.73_m2} Low >60 [facility] Comment on above: Result Comment: mL/m in/1.73m2 CKD-EPI Creatinine Equation (2020) Performed By: #### L 500.2500 #### [facility] [address] [place], [address] Glucose [Mass/Vol] 121 mg/dL High 70-99 [facility] Comment on above: Performed By: #### L 500.2500 #### [facility] [address] [place], [address] Potassium [Moles/Vol] 4.2 mmol/L Normal 3.3-5.1 [facility] Comment on above: Result Comment: Hemo lysis present, Results??could be affected. ?? Performed By: #### L 500.2500 #### [facility] [address] [place], [address] Sodium [Moles/Vol] 138 mmol/L Normal 133-145 [facility] Comment on above: Performed By: #### L 500.2500 #### [facility] [address] [place], [address] Urea nitrogen [Mass/Vol] 20 mg/dL High 4-19 [facility] Comment on above: Performed By: #### L 500.2500 #### [facility] [address] [place], [address] Carbon dioxide, total [Moles /volume] in Central venous bloodOrdered By: Jeet Farnsworth on 01-07-2025 CO2 [Moles/Vol] 22.4 mmol/L 21.0-32.0 [facility] Chloride assayOrdered By: Vinicio Farnsworth on 01-07-2025 Chloride [Moles/Vol] 103 mmol/L 98-108 [facility] GFR/1.73 sq M.predicted vee g non-blacks MDRD (S/P/Bld) [Vol rate/Area]Ordered By: Jeet Farnsworth on 01-07-2025 Estimated GFR (MDRD) Non-Af Amer 53 Low >60 [facility] Comment on above: mL/min/1.73m2 CKD-EP I Creatinine Equation (2020) Glomerular filtration rate ( GFR) estimation/1.73 sq m using serum, plasma, or whole bOrdered By: Jeet Farnsworth on 01-07-2025 GFR/1.73 sq M.predicted among non-blacks MDRD (S/P/Bld) [Vol rate/Area] 53 mL/min/{1.73_m2} Low >60 [facility] Comment on above: mL/min/1.73m2 CKD-EP I Creatinine Equation (2020) Potassium (Unsp spec) [Mass/ Vol]Ordered By: Jeet Farnsworth on 01-07-2025 Potassium [Moles/Vol] 4.2 mmol/L 3.3-5.1 [facility] Comment on above: Hemolysis present, R esults could be affected. Potassium measurement (mass/ volume)Ordered By: Jeet Farnsworth on 01-07-2025 Potassium (Unsp spec) [Mass/Vol] 4.2 mmol/L 3.3-5.1 [facility] Comment on above: Hemolysis present, R esults could be affected. Serum creatinine measurement (mass/volume)Ordered By: Jeet Farnsworth on 01-07-2025 Creatinine [Mass/Vol] 1.17 mg/dL 0.70-1.20 [facility] Serum glucose measurement (m ass/volume)Ordered By: Jeet Farnsworth on 01-07-2025 Glucose [Mass/Vol] 121 mg/dL High 70-99 [facility] Serum or plasma calcium petr urement (mass/volume)Ordered By: Jeet Farnsworth on 01-07-2025 Calcium [Mass/Vol] 8.8 mg/dL 7.6-11.0 [facility] Serum or plasma urea nitroge n measurement (mass/volume)Ordered By: Jeet Farnsworth on 01-07-2025 Urea nitrogen [Mass/Vol] 20 mg/dL High 4-19 [facility] Sodium levelOrdered By: Jeet Farnsworth on 01-07-2025 Sodium [Moles/Vol] 138 mmol/L 133-145 [facility] Basic Metabolic Profile (BMP )on 12-17-2024 BUN/CRE 19.1 RATIO Normal 10-20 [facility] Comment on above: Performed By: #### L [id number] #### [facility] [address] [place], [address] CA,Total 8.9 mg/dL Normal 8.5-10.1 [facility] Comment on above: Performed By: #### L 500.2500 #### [facility] [address] [place], [address] Chloride [Moles/Vol] 99 mmol/L Normal 98-107 [facility] Comment on above: Performed By: #### L 500.2500 #### [facility] [address] [place], [address] CO2 [Moles/Vol] 29.0 mmol/L Normal 21.0-32.0 [facility] Comment on above: Performed By: #### L 500.2500 #### [facility] [address] [place], [address] Creatinine [Mass/Vol] 1.10 mg/dL High 0.55-1.02 [facility] Comment on above: Result Comment: The validity of the calculated GFR GFRAA in patients over 70 years has not been determined. Clinical correlation is essential. Performed By: #### L 500.2500 #### [facility] [address] [place], [address] EST GFR - AA 65 mL/min Normal >60 [facility] Comment on above: Result Comment: Afri can [facility] GFR Calc Performed By: #### L 500.2500 #### [facility] [address] [place], [address] GAP 9 Normal 5-15 [facility] Comment on above: Performed By: #### L 500.2500 #### [facility] [address] [place], [address] GFR/1.73 sq M.predicted among non-blacks MDRD (S/P/Bld) [Vol rate/Area] 54 mL/min/{1.73_m2} Low >60 [facility] Comment on above: Result Comment: Non- GFR Calc Performed By: #### L 500.2500 #### [facility] [address] [place], [address] Glucose [Mass/Vol] 169 mg/dL High 74-106 [facility] Comment on above: Result Comment: Fast ing Glucose result greater than or equal to 126 mg/dL suggests DIABETES MELLITUS per A.D.A. criteria. Performed By: #### L 500.2500 #### [facility] [address] [place], [address] Potassium [Moles/Vol] 3.4 mmol/L Low 3.5-5.1 [facility] Comment on above: Performed By: #### L 500.2500 #### [facility] [address] [place], [address] Sodium [Moles/Vol] 137 mmol/L Normal 136-145 [facility] Comment on above: Performed By: #### L [id number] #### [facility] [address] [place], [address] Urea nitrogen [Mass/Vol] 21 mg/dL High 7-18 [facility] Comment on above: Performed By: #### L 500.2500 #### [facility] [address] [place], [address] Blood urea nitrogen (BUN)/cr eatinine ratioOrdered By: Jeet Farnsworth on 12-17-2024 Urea nitrogen/Creatinine [Mass ratio] 19.1 mg/mg 10-20 [facility] Carbon dioxide measurementOr dered By: Jeet Farnsworth on 12-17-2024 CO2 [Moles/Vol] 29.0 mmol/L 21.0-32.0 [facility] Chloride measurementOrdered By: Jeet Farnsworth on 12-17-2024 Chloride [Moles/Vol] 99 mmol/L 98-107 [facility] Estimated glomerular filtrat ion rate (GFR) AmericanOrdered By: Jeet Farnsworth on 12-17-2024 Estimated GFR (MDRD) Amer 65 mL/min >60 [facility] Comment on above: GFR Calc Glomerular filtration rate ( GFR) estimationOrdered By: Jeet Farnsworth on 12-17-2024 Estimated GFR (MDRD) Non-Af Amer 54 mL/min Low >60 [facility] Comment on above: Non- GFR Calc GFR/1.73 sq M.predicted among non-blacks MDRD (S/P/Bld) [Vol rate/Area] 54 mL/min/{1.73_m2} Low >60 [facility] Comment on above: Non- GFR Calc Glucose measurementOrdered B y: Jeet Farnsworth on 12-17-2024 Glucose [Mass/Vol] 169 mg/dL High 74-106 [facility] Comment on above: Fasting Glucose resu lt greater than or equal to 126 mg/dL suggests DIABETES MELLITUS per A.D.A. criteria. Potassium measurementOrdered By: Jeet Farnsworth 12-17-2024 Potassium [Moles/Vol] 3.4 mmol/L Low 3.5-5.1 [facility] Serum anion gap measurementO rdered By: Jeet Farnsworth 12-17-2024 Anion gap [Moles/Vol] 9 mmol/L 5-15 [facility] Serum or plasma calcium petr urement (mass/volume)Ordered By: Jeet Farnsworth 12-17-2024 Calcium [Mass/Vol] 8.9 mg/dL 8.5-10.1 [facility] Serum or plasma creatinine m easurement (mass/volume)Ordered By: Jeet Farnsworth 12-17-2024 Creatinine [Mass/Vol] 1.10 mg/dL High 0.55-1.02 [facility] Comment on above: The validity of the calculated GFR & GFRAA in patients over 70 years has not been determined. Clinical correlation is essential. Serum or plasma urea nitroge n measurement (mass/volume)Ordered By: Jeet Farnsworth on 12-17-2024 Urea nitrogen [Mass/Vol] 21 mg/dL High -18 [facility] Sodium levelOrdered By: Jeet Farnsworth on 12-17-2024 Sodium [Moles/Vol] 137 mmol/L 136-145 [facility] Absolute neutrophil countOrd ered By: Jeet Farnsworth on 11-22-2024 Neutrophils (Bld) [#/Vol] 6.8 10*3/uL 2.0-7.7 [facility] Albumin to globulin ratioOrd ered By: Jeet Farnsworth on 11-22-2024 Albumin/Globulin [Mass ratio] 0.8 {ratio} Low 0.9-2.4 [facility] Basophil percentageOrdered B y: Jeet Farnsworth on 11-22-2024 Basophils/100 WBC (Bld) 0.4 % 0-1 [facility] Bilirubin, totalOrdered By: Jeet Farnsworth on 11-22-2024 Bilirubin [Mass/Vol] 0.40 mg/dL 0.20-1.00 [facility] Comment on above: For patients on eltr ombopag therapy, use of Dimension [place] TBIL is not recommended. Blood urea nitrogen (BUN)/cr eatinine ratioOrdered By: Jeet Farnsworth on 11-22-2024 Urea nitrogen/Creatinine [Mass ratio] 15.2 mg/mg 10-20 [facility] CBC W/Diff, Automatedon 11-06 Absolute Lymph 2.65 X10 3/uL Normal 0.83-4.51 [facility] Comment on above: Performed By: #### L 500.4050, L501.9520, L100.0100 #### [facility] [address] [place], [place], [id number] Absolute Neut 6.8 X10 3/uL Normal 2.0-7.7 [facility] Comment on above: Performed By: #### L 500.4050, L501.9520, L100.0100 #### [facility] [address] [place], [address] Basophils/100 WBC (Bld) 0.4 % Normal 0-1 [facility] Comment on above: Performed By: #### L 500.4050, L501.9520, L100.0100 #### [facility] [address] [place], [address] Eosinophils/100 WBC (Bld) 0.0 % Normal 0-5 [facility] Comment on above: Performed By: #### L 500.4050, L501.9520, L100.0100 #### [facility] [address] [place], [address] Erythrocyte distribution width (RBC) [Ratio] 13.3 % Normal 11.6-14.6 [facility] Comment on above: Performed By: #### L 500.4050, L501.9520, L100.0100 #### [facility] [address] [place], [address] Hematocrit (Bld) [Volume fraction] 43.8 % Normal 37-47 [facility] Comment on above: Performed By: #### L 500.4050, L501.9520, L100.0100 #### [facility] [address] [place], [address] Hemoglobin (Bld) [Mass/Vol] 13.9 g/dL Normal 12.0-15.0 [facility] Comment on above: Performed By: #### L 500.4050, L501.9520, L100.0100 #### [facility] [address] [place], [address] IG% 0.600 Normal 0.0-0.9 [facility] Comment on above: Result Comment: IG% - Immature Granulocytes (promyelocytes, myelocytes and metamyelocytes) > 1% indicates that a LEFT SHIFT is Present. Performed By: #### L 500.4050, L501.9520, L100.0100 #### [facility] [address] [place], [address] Lymphocytes/100 WBC (Bld) 26.4 % Normal 19-41 [facility] Comment on above: Performed By: #### L 500.4050, L501.9520, L100.0100 #### [facility] [address] [place], [address] MCH (RBC) [Entitic mass] 28.0 pg Normal 27.0-32.0 [facility] Comment on above: Performed By: #### L 500.4050, L501.9520, L100.0100 #### [facility] [address] [place], [address] MCHC (RBC) [Mass/Vol] 31.7 g/dL Low 32-36 [facility] Comment on above: Performed By: #### L 500.4050, L501.9520, L100.0100 #### [facility] [address] [place], [address] MCV (RBC) [Entitic vol] 88.1 fL Normal 81-99 [facility] Comment on above: Performed By: #### L 500.4050, L501.9520, L100.0100 #### [facility] [address] [place], [address] Monocytes/100 WBC (Bld) 4.9 % Normal 0-10 [facility] Comment on above: Performed By: #### L 500.4050, L501.9520, L100.0100 #### [facility] [address] [place], [address] Neutrophils/100 WBC (Bld) 67.7 % Normal 47-70 [facility] Comment on above: Performed By: #### L 500.4050, L501.9520, L100.0100 #### [facility] [address] [place], [address] Nucleated RBC (Bld) [#/Vol] 0 10*3/uL Normal 0-5 [facility] Comment on above: Performed By: #### L 500.4050, [id number], L100.0100 #### [facility] [address] [place], [address] Platelet mean volume (Bld) [Entitic vol] 10.2 fL Normal 6.2-12.0 [facility] Comment on above: Performed By: #### L 500.4050, L501.9520, L100.0100 #### [facility] [address] [place], [address] Platelets (Bld) [#/Vol] 280 10*3/uL Normal 150-450 [facility] Comment on above: Performed By: #### L 500.4050, L501.9520, L100.0100 #### [facility] [address] [place], [address] RBC (Bld) [#/Vol] 4.97 10*6/uL Normal 4.2-5.4 [facility] Comment on above: Performed By: #### L 500.4050, [id number], L100.0100 #### [facility] [address] [place], [address] RDW SD 43.2 fl Normal 35.1-43.9 [facility] Comment on above: Performed By: #### L 500.4050, [id number], L100.0100 #### [facility] [address] [place], [address] WBC (Bld) [#/Vol] 10.0 10*3/uL Normal 4.4-11.0 [facility] Comment on above: Performed By: #### L 500.4050, [id number], L100.0100 #### [facility] [address] [place], [address] Carbon dioxide measurementOr dered By: Jeet Farnsworth on 11-22-2024 CO2 [Moles/Vol] 27.0 mmol/L 21.0-32.0 [facility] Chloride measurementOrdered By: Jeet Farnsworth on 11-22-2024 Chloride [Moles/Vol] 102 mmol/L 98-107 [facility] Comprehensive Metabolic Prof ilon 11-22-2024 Albumin [Mass/Vol] 3.4 g/dL Normal 3.2-5.0 [facility] Comment on above: Performed By: #### L 500.4050, L501.9520, L100.0100 #### [facility] [address] [place], [address] Albumin/Globulin [Mass ratio] 0.8 {ratio} Low 0.9-2.4 [facility] Comment on above: Performed By: #### L 500.4050, [id number], L100.0100 #### [facility] [address] [place], [address] ALK P 89 U/L Normal 45-117 [facility] Comment on above: Performed By: #### L 500.4050, [id number], L100.0100 #### [facility] [address] [place], [address] ALT [Catalytic activity/Vol] 38 U/L Normal 13-56 [facility] Comment on above: Performed By: #### L 500.4050, [id number], L100.0100 #### [facility] [address] [place], [address] AST [Catalytic activity/Vol] 29 U/L Normal 15-37 [facility] Comment on above: Result Comment: Slig ht Hemolysis, Result may be falsely increased. Performed By: #### L 500.4050, [id number], L100.0100 #### [facility] [address] [place], [address] Bilirubin [Mass/Vol] 0.40 mg/dL Normal 0.20-1.00 [facility] Comment on above: Result Comment: For patients on eltrombopag therapy, use of Dimension [place] TBIL is not recommended. Performed By: #### L 500.4050, [id number], L100.0100 #### [facility] [address] [place], [address] BUN/CRE 15.2 RATIO Normal 10-20 [facility] Comment on above: Performed By: #### L 500.4050, [id number], L100.0100 #### [facility] [address] [place], [address] CA,Total 8.8 mg/dL Normal 8.5-10.1 [facility] Comment on above: Performed By: #### L 500.4050, [id number], L100.0100 #### [facility] [address] [place], [address] Chloride [Moles/Vol] 102 mmol/L Normal 98-107 [facility] Comment on above: Performed By: #### L 500.4050, [id number], L100.0100 #### [facility] [address] [place], [address] CO2 [Moles/Vol] 27.0 mmol/L Normal 21.0-32.0 [facility] Comment on above: Performed By: #### L 500.4050, [id number], L100.0100 #### [facility] [address] [place], [address] Creatinine [Mass/Vol] 1.05 mg/dL High 0.55-1.02 [facility] Comment on above: Result Comment: The validity of the calculated GFR GFRAA in patients over 70 years has not been determined. Clinical correlation is essential. Performed By: #### L 500.4050, L501.9520, L100.0100 #### [facility] [address] [place], [address] EST GFR - AA 69 mL/min Normal >60 [facility] Comment on above: Result Comment: Afri can [facility] GFR Calc Performed By: #### L 500.4050, L501.9520, L100.0100 #### [facility] [address] [place], [address] GAP 8 Normal 5-15 [facility] Comment on above: Performed By: #### L 500.4050, L501.9520, L100.0100 #### [facility] [address] [place], [address] GFR/1.73 sq M.predicted among non-blacks MDRD (S/P/Bld) [Vol rate/Area] 57 mL/min/{1.73_m2} Low >60 [facility] Comment on above: Result Comment: Non- GFR Calc Performed By: #### L 500.4050, L501.9520, L100.0100 #### [facility] [address] [place], [address] Globulin (S) [Mass/Vol] 4.0 g/dL Normal 2.2-4.2 [facility] Comment on above: Performed By: #### L 500.4050, L501.9520, L100.0100 #### [facility] [address] [place], [address] Glucose [Mass/Vol] 263 mg/dL High 74-106 [facility] Comment on above: Result Comment: Gluc ose result greater than or equal to 200 mg/dL suggests DIABETES MELLITUS per A.D.A. criteria. Performed By: #### L 500.4050, L501.9520, L100.0100 #### [facility] [address] [place], [address] Potassium [Moles/Vol] 4.2 mmol/L Normal 3.5-5.1 [facility] Comment on above: Result Comment: Slig ht Hemolysis, Result may be falsely increased. Performed By: #### L 500.4050, L501.9520, L100.0100 #### [facility] [address] [place], [address] Sodium [Moles/Vol] 137 mmol/L Normal 136-145 [facility] Comment on above: Performed By: #### L 500.4050, L501.9520, L100.0100 #### [facility] [address] [place], [address] T PROT 7.4 g/dL Normal 6.4-8.2 [facility] Comment on above: Performed By: #### L 500.4050, L501.9520, L100.0100 #### [facility] [address] [place], [address] Urea nitrogen [Mass/Vol] 16 mg/dL Normal 7-18 [facility] Comment on above: Performed By: #### L 500.4050, L501.9520, L100.0100 #### [facility] [address] [place], [address] Eosinophil percentageOrdered By: Jeet Farnsworth on 11-22-2024 Eosinophils/100 WBC (Bld) 0.0 % 0-5 [facility] Erythrocyte distribution wid th ratioOrdered By: Jeet Farnsworth on 11-22-2024 Erythrocyte distribution width (RBC) [Ratio] 13.3 % 11.6-14.6 [facility] Erythrocyte distribution wid th standard deviationOrdered By: Jeet Farnsworth on 11-22-2024 Erythrocyte distribution width (RBC) [Entitic vol] 43.2 fL 35.1-43.9 [facility] Estimated glomerular filtrat ion rate (GFR) AmericanOrdered By: Jeet Farnsworth on 11-22-2024 Estimated GFR (MDRD) Amer 69 mL/min >60 [facility] Comment on above: GFR Calc Glomerular filtration rate ( GFR) estimationOrdered By: Jeet Farnsworth on 11-22-2024 Estimated GFR (MDRD) Non-Af Amer 57 mL/min Low >60 [facility] Comment on above: Non- GFR Calc Glucose measurementOrdered B y: Jeet Farnsworth on 11-22-2024 Glucose [Mass/Vol] 263 mg/dL High 74-106 [facility] Comment on above: Glucose result great er than or equal to 200 mg/dLsuggests DIABETES MELLITUS per A.D.A. criteria. Hematocrit Auto (Bld) [Volum e fraction]Ordered By: Jeet Farnsworth on 11-22-2024 Hematocrit (Bld) [Volume fraction] 43.8 % 37-47 [facility] Hemoglobin measurementOrdere d By: Jeet Farnsworth on 11-22-2024 Hemoglobin (Bld) [Mass/Vol] 13.9 g/dL 12.0-15.0 [facility] Immature granulocytes/100 WB C Auto (Bld)Ordered By: Jeet Farnsworth on 11-22-2024 Immature granulocytes/100 WBC (Bld) 0.600 % 0.0-0.9 [facility] Comment on above: IG% - Immature Granu locytes (promyelocytes, myelocytes and metamyelocytes) > 1% indicates that a LEFT SHIFT is Present. Laboratory - Chemistry and C hemistry - challengeOrdered By: Jeet Farnsworth on 11-22-2024 AST [Catalytic activity/Vol] 29 U/L 15-37 [facility] Comment on above: Slight Hemolysis, Re sult may be falsely increased. Lymphocytes Auto (Unsp spec) [#/Vol]Ordered By: Jeet Farnsworth on 11-22-2024 Lymphocytes (Bld) [#/Vol] 2.65 10*3/uL 0.83-4.51 [facility] Lymphocytes/100 WBC Auto (Un sp spec)Ordered By: Jeet Farnsworth on 11-22-2024 Lymphocytes/100 WBC (Bld) 26.4 % 19-41 [facility] MCV (mean corpuscular volume ) determinationOrdered By: Jeet Farnsworth on 11-22-2024 MCV (RBC) [Entitic vol] 88.1 fL 81-99 [facility] Mean corpuscular hemoglobin (MCH) determinationOrdered By: Jeet Farnsworth on 11-22-2024 MCH (RBC) [Entitic mass] 28.0 pg 27.0-32.0 [facility] Mean corpuscular hemoglobin concentration (MCHC) determinationOrdered By: Jeet Farnsworth on 11-22-2024 MCHC (RBC) [Mass/Vol] 31.7 g/dL Low 32-36 [facility] Mean platelet volume determi nationOrdered By: Jeet Farnsworth on 11-22-2024 Platelet mean volume (Bld) [Entitic vol] 10.2 fL 6.2-12.0 [facility] Monocyte percentageOrdered B y: Jeet Farnsworth on 11-22-2024 Monocytes/100 WBC (Bld) 4.9 % 0-10 [facility] Neutrophil percentageOrdered By: Jeet Farnsworth on 11-22-2024 Neutrophils/100 WBC (Bld) 67.7 % 47-70 [facility] Nucleated red blood cell per centageOrdered By: Jeet Farnsworth on 11-22-2024 Nucleated RBC/100 WBC (Bld) [Ratio] 0 % 0-5 [facility] Platelet countOrdered By: Vinicio Farnsworth on 11-22-2024 Platelets (Bld) [#/Vol] 280 10*3/uL 150-450 [facility] Potassium measurementOrdered By: Jeet Farnsworth on 11-22-2024 Potassium [Moles/Vol] 4.2 mmol/L 3.5-5.1 [facility] Comment on above: Slight Hemolysis, Re sult may be falsely increased. RBC Auto (Bld) [#/Vol]Ordere d By: Jeet Farnsworth on 11-22-2024 RBC (Bld) [#/Vol] 4.97 10*6/uL 4.2-5.4 [facility] Serum anion gap measurementO rdered By: Jeet Farnsworth on 11-22-2024 Anion gap [Moles/Vol] 8 mmol/L 5-15 [facility] Serum globulin measurementOr dered By: Jeet Farnsworth on 11-22-2024 Globulin (S) [Mass/Vol] 4.0 g/dL 2.2-4.2 [facility] Serum or plasma alanine lundberg otransferase (ALT) measurementOrdered By: Jeet Farnsworth on 11-22-2024 ALT [Catalytic activity/Vol] 38 U/L 13-56 [facility] Serum or plasma albumin petr urement (mass/volume)Ordered By: Jeet Farnsworth on 11-22-2024 Albumin [Mass/Vol] 3.4 g/dL 3.2-5.0 [facility] Serum or plasma alkaline [place]bey sphatase measurementOrdered By: Jeet Farnsworth on 11-22-2024 ALP [Catalytic activity/Vol] 89 U/L 45-117 [facility] Serum or plasma calcium petr urement (mass/volume)Ordered By: Jeet Farnsworth on 11-22-2024 Calcium [Mass/Vol] 8.8 mg/dL 8.5-10.1 [facility] Serum or plasma creatinine m easurement (mass/volume)Ordered By: Jeet Farnsworth on 11-22-2024 Creatinine [Mass/Vol] 1.05 mg/dL High 0.55-1.02 [facility] Comment on above: The validity of the calculated GFR & GFRAA in patients over 70 years has not been determined. Clinical correlation is essential. Serum or plasma urea nitroge n measurement (mass/volume)Ordered By: Jeet Farnsworth on 11-22-2024 Urea nitrogen [Mass/Vol] 16 mg/dL 7-18 [facility] Sodium levelOrdered By: Jeet Farnsworth 11-22-2024 Sodium [Moles/Vol] 137 mmol/L 136-145 [facility] TSH QnOrdered By: Jeet Farnsworth o n 11-22-2024 Thyroid Stimulating Hormone (TSH) 1.320 uIU/mL 0.358-3.740 [facility] Thyroid Stim Hormone (TSH)on 11-22-2024 TSH 1.320 uIU/mL Normal 0.358-3.740 [facility] Comment on above: Performed By: #### L 500.2500 #### [facility] Laboratory [facility] [place], [address] Total proteinOrdered By: Jeet Farnsworth on 11-22-2024 Protein [Mass/Vol] 7.4 g/dL 6.4-8.2 [facility] White blood cell (WBC) count Ordered By: Jeet Javad on 11-22-2024 WBC (Bld) [#/Vol] 10.0 10*3/uL 4.4-11.0 [facility] Elastography Parenchyma/Orga non 09-23-2024 Elastography Parenchyma/Organ [facility] Imaging Services [address] [place] [address] Elastography Parenchyma/Organ MR#: [id number] Acct: [id number] Name: SHANNAN JAIMES Rep #: [id number] : 1965 F 58 From: Trip burgess MD PCP: Dr. Jeet Farnsworth MD Status: REG CL Study: Elastography Parenchyma/Organ Date of Exam: Exam# [id number] Ordering Dr: Jeet Farnsworth MD [id number] STUDY: ABDOMINAL ULTRASOUND - ELASTOGRAPHY REASON FOR VISIT: Female, 58 years old. Fatty infiltration of the liver. TECHNIQUE: Liver stiffness measurements were obtained on a Kashmi RS 85 ultrasound machine using a CA 1-7 probe following the SRU guidelines. 3 measurements were obtained using a 2-D-SWE method. TheIQR/M was 12% suggesting a quality data set. TECHNICAL QUALITY: Adequate. COMPARISON: Comparison is made with prior study dated October 15, 2020 and September 06, 2024. FINDINGS: Liver: There is no demonstrated mass lesion. Fatty infiltration of the liver. Median liver stiffness measured 9.7 kPa. Abdomen: There is no demonstrated mass lesion. US/Elastography Parenchyma/Organ IMPRESSION: Liver stiffness measures 9.7 kPa compatible with F2-F3 (Mild to moderate liver fibrosis) Metavir score. Electronically Signed: Trip Carl MD at 12:58 EST , CC: Dr. Jeet Farnsworth MD Wet Roaster: Signed Normal [facility] Abdomen Limitedon 09-06-2024 Abdomen Limited [facility] Imaging Services [address] [place], [place] [address] Abdomen Limited MR#: [id number] Acct: [id number] Name: SHANNAN JAIMES Rep #: [id number] : 1965 F 58 From: Shiva eldridge MD PCP: Dr. Jeet Farnsworth MD Status: [facility] Study: Abdomen Limited Date of Exam: 09/06/24 Exam# [id number] Ordering Dr: Jeet Farnsworth MD [id number] STUDY: ABDOMINAL ULTRASOUND - RIGHT UPPER QUADRANT REASON FOR VISIT: Female, 58 years old ELEVATED LIVER ENZ TECHNIQUE: Ultrasound evaluation of the right upper quadrant was performed with real-time and static archer-scale imaging. TECHNICAL QUALITY: Limited. COMPARISON: 09/25/2020. FINDINGS: Liver: The liver measures 19.5 cm. There is increased echogenicity consistent with fatty infiltration. The bile ducts are within normal limits. There is hepatic color flow. The direction of portal flow is hepatopetal. There is no demonstrated mass lesion. Gallbladder: Normal distended gallbladder. The gallbladder wall measures 2 mm. There is a negative sonographic Mckeon''s sign. There is no pericholecystic fluid. There is a solitary echogenic gallstone within the gallbladder. Common Bile Duct (C.B.D.): The common bile duct measures 4 mm. Pancreas: Normal size of the head, body and tail of the pancreas. There is normal echogenicity of the pancreas. There is no demonstrated pancreatic mass or cyst. Right Kidney: Normal size of the right kidney. The right kidney measures 11.5 cm. Normal renal cortex. The right cortex measures 1.3 cm. There is no demonstrated renal mass or cyst. There is no right hydronephrosis. US/Abdomen Limited IMPRESSION: Limited as above. Cholelithiasis. Fatty liver. Electronically Signed: Shiva Robb MD at 22:58 EDT , CC: Dr. Jeet Farnsworth MD Wet Roaster: Signed Normal [facility] Hepatitis Panel Acuteon 11-0 COMMENT Comment Normal . [facility] Comment on above: Result Comment: Not infected with HCV unless early or acute infection is suspected (which may be delayed in an immunocompromised individual), or other evidence exists to indicate HCV infection. Performed at: [facility] [address] [id number] Add[facility] Recovery Specialist: Americo Henry PhD, Phone: [phone] Performed By: #### L 500.2500 #### [facility] [address] [facility] [facility] [place] [address] HEP B CORE,IgM Negative Normal Negative [facility] Comment on above: Performed By: #### L 500.2500 #### [facility] [address] [facility] [place] [address] HEP B SURF AG Negative Normal Negative [facility] Comment on above: Performed By: #### L 500.2500 #### [facility] [address] [facility] [place], [place], [id number] HEP C VIRUS AB Non-Reactive Normal Non Reactive [facility] Comment on above: Performed By: #### L 500.2500 #### [facility] [address] [facility] [place] [address] HEPATITIS A-IgM Negative Normal Negative [facility] Comment on above: Result Comment: A ne gative anti-HAV IgM result suggests no recent or current HAV infection. Performed By: #### L 500.2500 #### [facility] [address] [place], [address] CBC W/Diff, Automatedon 10-2 Absolute Lymph 3.72 X10 3/uL Normal 0.83-4.51 [facility] Comment on above: Performed By: #### L 500.4050, L100.0100, L501.9520 #### [facility] [address] [place], [address] Absolute Neut 5.8 X10 3/uL Normal 2.0-7.7 [facility] Comment on above: Performed By: #### L 500.4050, L100.0100, L501.9520 #### [facility] [address] [place], [address] Basophils/100 WBC (Bld) 0.4 % Normal 0-1 [facility] Comment on above: Performed By: #### L 500.4050, L100.0100, L501.9520 #### [facility] [address] [place], [address] Eosinophils/100 WBC (Bld) 1.2 % Normal 0-5 [facility] Comment on above: Performed By: #### L 500.4050, L100.0100, L501.9520 #### [facility] [address] [place], [address] Erythrocyte distribution width (RBC) [Ratio] 13.5 % Normal 11.6-14.6 [facility] Comment on above: Performed By: #### L 500.4050, L100.0100, L501.9520 #### [facility] [address] [place], [address] Hematocrit (Bld) [Volume fraction] 41.5 % Normal 37-47 [facility] Comment on above: Performed By: #### L 500.4050, L100.0100, L501.9520 #### [facility] [address] [place], [address] Hemoglobin (Bld) [Mass/Vol] 13.5 g/dL Normal 12.0-15.0 [facility] Comment on above: Performed By: #### L 500.4050, L100.0100, L501.9520 #### [facility] [address] [place], [address] IG% 0.300 Normal 0.0-0.9 [facility] Comment on above: Result Comment: IG% - Immature Granulocytes (promyelocytes, myelocytes and metamyelocytes) > 1% indicates that a LEFT SHIFT is Present. Performed By: #### L 500.4050, L100.0100, L501.9520 #### [facility] [address] [place], [address] Lymphocytes/100 WBC (Bld) 36.3 % Normal 19-41 [facility] Comment on above: Performed By: #### L 500.4050, L100.0100, L501.9520 #### [facility] [address] [place], [address] MCH (RBC) [Entitic mass] 28.2 pg Normal 27.0-32.0 [facility] Comment on above: Performed By: #### L 500.4050, L100.0100, L501.9520 #### [facility] [address] [place], [address] MCHC (RBC) [Mass/Vol] 32.5 g/dL Normal 32-36 [facility] Comment on above: Performed By: #### L 500.4050, L100.0100, L501.9520 #### [facility] [address] [place], [address] MCV (RBC) [Entitic vol] 86.6 fL Normal 81-99 [facility] Comment on above: Performed By: #### L 500.4050, L100.0100, L501.9520 #### [facility] [address] [place], [address] Monocytes/100 WBC (Bld) 5.7 % Normal 0-10 [facility] Comment on above: Performed By: #### L 500.4050, L100.0100, L501.9520 #### [facility] [address] [place], [address] Neutrophils/100 WBC (Bld) 56.1 % Normal 47-70 [facility] Comment on above: Performed By: #### L 500.4050, L100.0100, L501.9520 #### [facility] [address] [place], [address] Nucleated RBC (Bld) [#/Vol] 0 10*3/uL Normal 0-5 [facility] Comment on above: Performed By: #### L 500.4050, L100.0100, L501.9520 #### [facility] [address] [place], [address] Platelet mean volume (Bld) [Entitic vol] 10.2 fL Normal 6.2-12.0 [facility] Comment on above: Performed By: #### L 500.4050, L100.0100, L501.9520 #### [facility] [address] [place], [address] Platelets (Bld) [#/Vol] 256 10*3/uL Normal 150-450 [facility] Comment on above: Performed By: #### L 500.4050, L100.0100, L501.9520 #### [facility] [address] [place], [address] RBC (Bld) [#/Vol] 4.79 10*6/uL Normal 4.2-5.4 [facility] Comment on above: Performed By: #### L 500.4050, L100.0100, L501.9520 #### [facility] [address] [place], [address] RDW SD 42.0 fl Normal 35.1-43.9 [facility] Comment on above: Performed By: #### L 500.4050, L100.0100, L501.9520 #### [facility] [address] [place], [address] WBC (Bld) [#/Vol] 10.3 10*3/uL Normal 4.4-11.0 [facility] Comment on above: Performed By: #### L 500.4050, L100.0100, L501.9520 #### [facility] [address] [place], [address] Comprehensive Metabolic [facility] 09-03-2024 Albumin [Mass/Vol] 3.7 g/dL Normal 3.2-5.0 [facility] Comment on above: Performed By: #### L 500.4050, L100.0100, L501.9520 #### [facility] [address] [place], [address] Albumin/Globulin [Mass ratio] 0.9 {ratio} Normal 0.9-2.4 [facility] Comment on above: Performed By: #### L 500.4050, L100.0100, L501.9520 #### [facility] [address] [place], [address] ALK P 71 U/L Normal 45-117 [facility] Comment on above: Performed By: #### L 500.4050, L100.0100, L501.9520 #### [facility] [address] [place], [address] ALT [Catalytic activity/Vol] 57 U/L High 13-56 [facility] Comment on above: Performed By: #### L 500.4050, L100.0100, L501.9520 #### [facility] [address] [place], [address] AST [Catalytic activity/Vol] 44 U/L High 15-37 [facility] Comment on above: Result Comment: Mode rate Hemolysis, Result may be falsely increased. Performed By: #### L 500.4050, L100.0100, L501.9520 #### [facility] [address] [place], [address] Bilirubin [Mass/Vol] 1.00 mg/dL Normal 0.20-1.00 [facility] Comment on above: Result Comment: For patients on eltrombopag therapy, use of Dimension [place] TBIL is not recommended. Performed By: #### L 500.4050, L100.0100, L501.9520 #### [facility] [address] [place], [address] BUN/CRE 15.4 RATIO Normal 10-20 [facility] Comment on above: Performed By: #### L 500.4050, L100.0100, L501.9520 #### [facility] [address] [place], [address] CA,Total 8.6 mg/dL Normal 8.5-10.1 [facility] Comment on above: Performed By: #### L 500.4050, L100.0100, L501.9520 #### [facility] [address] [place], [address] Chloride [Moles/Vol] 102 mmol/L Normal 98-107 [facility] Comment on above: Performed By: #### L 500.4050, L100.0100, L501.9520 #### [facility] [address] [place], [address] CO2 [Moles/Vol] 26.0 mmol/L Normal 21.0-32.0 [facility] Comment on above: Performed By: #### L 500.4050, L100.0100, L501.9520 #### [facility] [address] [place], [address] Creatinine [Mass/Vol] 0.97 mg/dL Normal 0.55-1.02 [facility] Comment on above: Result Comment: The validity of the calculated GFR GFRAA in patients over 70 years has not been determined. Clinical correlation is essential. Performed By: #### L 500.4050, L100.0100, L501.9520 #### [facility] [address] [place], [address] EST GFR - AA 75 mL/min Normal >60 [facility] Comment on above: Result Comment: Afri can [facility] GFR Calc Performed By: #### L 500.4050, L100.0100, L501.9520 #### [facility] [address] [place], [address] GAP 8 Normal 5-15 [facility] Comment on above: Performed By: #### L 500.4050, L100.0100, L501.9520 #### [facility] [address] [place], [address] GFR/1.73 sq M.predicted among non-blacks MDRD (S/P/Bld) [Vol rate/Area] 62 mL/min/{1.73_m2} Normal >60 [facility] Comment on above: Result Comment: Non- GFR Calc Performed By: #### L 500.4050, L100.0100, L501.9520 #### [facility] [address] [place], [address] Globulin (S) [Mass/Vol] 3.9 g/dL Normal 2.2-4.2 [facility] Comment on above: Performed By: #### L 500.4050, L100.0100, L501.9520 #### [facility] [address] [place], [address] Glucose [Mass/Vol] 133 mg/dL High 74-106 [facility] Comment on above: Result Comment: Fast ing Glucose result greater than or equal to 126 mg/dL suggests DIABETES MELLITUS per A.D.A. criteria. Performed By: #### L 500.4050, L100.0100, L501.9520 #### [facility] [address] [place], [address] Potassium [Moles/Vol] 3.9 mmol/L Normal 3.5-5.1 [facility] Comment on above: Result Comment: Mode rate Hemolysis, Result may be falsely increased. Performed By: #### L 500.4050, L100.0100, L501.9520 #### [facility] [address] [place], [address] Sodium [Moles/Vol] 136 mmol/L Normal 136-145 [facility] Comment on above: Performed By: #### L 500.4050, L100.0100, L501.9520 #### [facility] [address] [place], [address] T PROT 7.6 g/dL Normal 6.4-8.2 [facility] Comment on above: Performed By: #### L 500.4050, L100.0100, L501.9520 #### [facility] [address] [place], [address] Urea nitrogen [Mass/Vol] 15 mg/dL Normal 7-18 [facility] Comment on above: Performed By: #### L 500.4050, L100.0100, L501.9520 #### [facility] [address] [place], [address] Thyroid Stim Hormone (TSH)on 09-03-2024 TSH 1.400 uIU/mL Normal 0.358-3.740 [facility] Comment on above: Performed By: #### L 500.4050, L100.0100, L501.9520 #### [facility] [address] [place], [address] Absolute lymphocyte countOrd ered By: Jeet Farnsworth on 10-03-2023 Lymphocytes Auto (Unsp spec) [#/Vol] 3.14 10*3/uL 0.83-4.51 [facility] Basophil percentageOrdered B y: Jeet Farnsworth on 10-03-2023 Basophils/100 WBC (Bld) 0.3 % 0-1 [facility] Bilirubin [Mass/Vol] 0.40 mg/dL 0.20-1.00 [facility] Comment on above: For patients on eltr ombopag therapy, use of Dimension [place] TBIL is not recommended. Chloride [Moles/Vol] 104 mmol/L 98-107 [facility] Eosinophils/100 WBC (Bld) 0.0 % 0-5 [facility] Glucose [Mass/Vol] 131 mg/dL 74-106 [facility] Comment on above: Fasting Glucose resu lt greater than or equal to 126 mg/dL suggests DIABETES MELLITUS per A.D.A. criteria. Neutrophils (Bld) [#/Vol] 5.7 10*3/uL 2.0-7.7 [facility] Neutrophils/100 WBC (Bld) 60.3 % 47-70 [facility] Potassium [Moles/Vol] 3.7 mmol/L 3.5-5.1 [facility] Protein [Mass/Vol] 7.5 g/dL 6.4-8.2 [facility] Sodium [Moles/Vol] 137 mmol/L 136-145 [facility] WBC (Bld) [#/Vol] 9.4 10*3/uL 4.4-11.0 [facility] Blood erythrocytes count (nu mber/volume)Ordered By: Jeet Farnsworth on 10-03-2023 RBC (Bld) [#/Vol] 4.98 10*6/uL 4.2-5.4 [facility] Blood hemoglobin measurement (mass/volume)Ordered By: Jeet Farnsworth on 10-03-2023 Hemoglobin (Bld) [Mass/Vol] 13.9 g/dL 12.0-15.0 [facility] Blood lymphocytes/100 leukoc ytesOrdered By: Jeet Farnsworth on 10-03-2023 Lymphocytes/100 WBC (Bld) 33.3 % 19-41 [facility] Blood monocytes/100 leukocyt esOrdered By: Jeet Farnsworth on 10-03-2023 Monocytes/100 WBC (Bld) 5.8 % 0-10 [facility] Blood platelet mean volumeOr dered By: Jeet Farnsworth on 10-03-2023 Platelet mean volume (Bld) [Entitic vol] 10.5 fL 6.2-12.0 [facility] Determination of erythrocyte mean corpuscular volume (MCV)Ordered By: Jeet Farnsworth on 10-03-2023 MCV (RBC) [Entitic vol] 87.3 fL 81-99 [facility] Hematocrit Auto (Bld) [Volum e fraction]Ordered By: [facility] on 10-03-2023 Hematocrit (Bld) [Volume fraction] 43.5 % 37-47 [facility] Laboratory - Chemistry and C hemistry - challengeOrdered By: Jeet Javad on 10-03-2023 ALP [Catalytic activity/Vol] 81 U/L 45-117 [facility] ALT [Catalytic activity/Vol] 44 U/L 13-56 [facility] CO2 [Moles/Vol] 30.0 mmol/L 21.0-32.0 [facility] Globulin (S) [Mass/Vol] 4.0 g/dL 2.2-4.2 [facility] Urea nitrogen/Creatinine [Mass ratio] 14.6 mg/mg 10-20 [facility] - Hematology and Cell countsOrdered By: Jeet Farnsworth on 10-03-2023 Erythrocyte distribution width (RBC) [Entitic vol] 42.9 fL 35.1-43.9 [facility] Erythrocyte distribution width (RBC) [Ratio] 13.6 % 11.6-14.6 [facility] Immature granulocytes/100 WBC (Bld) 0.300 % 0.0-0.9 [facility] Comment on above: IG% - Immature Granu locytes (promyelocytes, myelocytes and metamyelocytes) > 1% indicates that a LEFT SHIFT is Present. MCH (RBC) [Entitic mass] 27.9 pg 27.0-32.0 [facility] Nucleated RBC/100 WBC (Bld) [Ratio] 0 % 0-5 [facility] MCHC Auto (RBC) [Mass/Vol]Or dered By: Jeet Farnsworth on 10-03-2023 MCHC (RBC) [Mass/Vol] 32.0 g/dL 32-36 [facility] No Panel InformationOrdered By: Jeet Farnsworth on 10-03-2023 Estimated GFR (MDRD) Amer 70 mL/min >60 [facility] Comment on above: GFR Calc Estimated GFR (MDRD) Non-Af Amer 58 mL/min >60 [facility] Comment on above: Non- GFR Calc Thyroid Stimulating Hormone (TSH) 1.92 uIU/mL 0.358-3.74 [facility] Platelets bldOrdered By: Jeet Farnsworth on 10-03-2023 Platelets (Bld) [#/Vol] 236 10*3/uL 150-450 [facility] Serum or plasma albumin petr urement (mass/volume)Ordered By: Jeet Farnsworth on 10-03-2023 Albumin [Mass/Vol] 3.5 g/dL 3.2-5.0 [facility] Serum or plasma albumin/glob ulin mass ratioOrdered By: Jeet Farnsworth on 10-03-2023 Albumin/Globulin [Mass ratio] 0.9 {ratio} 0.9-2.4 [facility] Serum or plasma calcium petr urement (mass/volume)Ordered By: Jeet Farnsworth on 10-03-2023 Calcium [Mass/Vol] 9.0 mg/dL 8.5-10.1 [facility] Serum or plasma creatinine m easurement (mass/volume)Ordered By: Jeet Farnsworth on 10-03-2023 Creatinine [Mass/Vol] 1.03 mg/dL 0.55-1.02 [facility] Comment on above: The validity of the calculated GFR & GFRAA in patients over 70 years has not been determined. Clinical correlation is essential. Serum or plasma urea nitroge n measurement (mass/volume)Ordered By: Jeet Farnsworth on 10-03-2023 Urea nitrogen [Mass/Vol] 15 mg/dL 7-18 [facility] Thin prep Papanicolaou smear with manual screeningOrdered By: Jeet Farnsworth on 10-03-2023 Thin prep Papanicolaou smear with manual screening 25 U/L 15-37 [facility] Thin prep Papanicolaou smear with manual screening 3 5-15 [facility] Absolute lymphocyte counton 03-23-2022 Lymphocytes Auto (Unsp spec) [#/Vol] 3.95 10*3/uL 0.83-4.51 [facility] Work Phone: Basophil percentageon 2021 Basophils/100 WBC (Bld) 0.4 % 0-1 [facility] Work Phone: Bilirubin [Mass/Vol] 0.30 mg/dL 0.20-1.00 [facility] Work Phone: Comment on above: For patients on eltr ombopag therapy, use of Dimension [place] TBIL is not recommended. Chloride [Moles/Vol] 99 mmol/L 98-107 [facility] Work Phone: Eosinophils/100 WBC (Bld) 3.5 % 0-5 [facility] Work Phone: Glucose [Mass/Vol] 134 mg/dL 74-106 [facility] Work Phone: Comment on above: Fasting Glucose resu lt greater than or equal to 126 mg/dL suggests DIABETES MELLITUS per A.D.A. criteria. Neutrophils (Bld) [#/Vol] 6.0 10*3/uL 2.0-7.7 [facility] Work Phone: Neutrophils/100 WBC (Bld) 53.8 % 47-70 [facility] Work Phone: Potassium [Moles/Vol] 3.6 mmol/L 3.5-5.1 [facility] Work Phone: Protein [Mass/Vol] 7.9 g/dL 6.4-8.2 [facility] Work Phone: [phone] Sodium [Moles/Vol] 136 mmol/L 136-145 [facility] Work Phone: [phone] WBC (Bld) [#/Vol] 11.1 10*3/uL 4.4-11.[address] [facility] [facility] Work Phone: [phone] Blood erythrocytes count (nu mber/volume)on 03-23-2022 RBC (Bld) [#/Vol] 5.25 10*6/uL 4.2-5.4 [facility] Work Phone: [phone] Blood hemoglobin measurement (mass/volume)on 03-23-2022 Hemoglobin (Bld) [Mass/Vol] 14.5 g/dL 12.0-15.0 [facility] Work Phone: [phone] Blood lymphocytes/100 leukoc yteson 03-23-2022 Lymphocytes/100 WBC (Bld) 35.5 % 19-41 [facility] Work Phone: [phone] Blood monocytes/100 leukocyt eson 03-23-2022 Monocytes/100 WBC (Bld) 6.6 % 0-10 [facility] Work Phone: [phone] Blood platelet mean volumeon 03-23-2022 Platelet mean volume (Bld) [Entitic vol] 10.1 fL 6.2-12.0 [facility] Work Phone: [phone] Determination of erythrocyte mean corpuscular volume (MCV)on 03-23-2022 MCV (RBC) [Entitic vol] 86.3 fL 81-99 [facility] Work Phone: [phone] Hematocrit Auto (Bld) [Volum e fraction]on 03-23-2022 Hematocrit (Bld) [Volume fraction] 45.3 % 37-47 [facility] Work Phone: Laboratory - Chemistry and C hemistry - challengeon 03-23-2022 ALP [Catalytic activity/Vol] 87 U/L 45-117 [facility] Work Phone: [phone] ALT [Catalytic activity/Vol] 31 U/L 13-56 [facility] Work Phone: [phone] CO2 [Moles/Vol] 29.0 mmol/L 21.0-32.0 [facility] Work Phone: [phone] Globulin (S) [Mass/Vol] 4.2 g/dL 2.2-4.2 [facility] [facility] Work Phone: [phone] Urea nitrogen/Creatinine [Mass ratio] 21.2 mg/mg 10-20 [facility] Work Phone: [phone] Laboratory - Hematology and Cell countson 03-23-2022 Erythrocyte distribution width (RBC) [Entitic vol] 42.0 fL 35.1-43.9 [facility] Work Phone: [phone] Erythrocyte distribution width (RBC) [Ratio] 13.4 % 11.6-14.6 [facility] Work Phone: [phone] Immature granulocytes/100 WBC (Bld) 0.200 % 0.0-0.9 [facility] Work Phone: [phone] Comment on above: IG% - Immature Granu locytes (promyelocytes, myelocytes and metamyelocytes) > 1% indicates that a LEFT SHIFT is Present. MCH (RBC) [Entitic mass] 27.6 pg 27.0-32.0 [facility] Work Phone: [phone] Nucleated RBC/100 WBC (Bld) [Ratio] 0 % 0-5 [facility] Work Phone: [phone] MCHC Auto (RBC) [Mass/Vol]on 03-23-2022 MCHC (RBC) [Mass/Vol] 32.0 g/dL 32-36 [facility] Work Phone: [phone] Panel Informationon 03-23 Estimated GFR (MDRD) Amer 88 mL/min >60 [facility] Work Phone: [phone] Comment on above: GFR Calc Estimated GFR (MDRD) Non-Af Amer 73 mL/min >60 [facility] Work Phone: [phone]) Comment on above: Non- GFR Calc Thyroid Stimulating Hormone (TSH) 1.88 uIU/mL 0.358-3.74 [facility] Work Phone: [phone] Platelets bldon 03-23-2022 Platelets (Bld) [#/Vol] 285 10*3/uL 150-450 [facility] Work Phone: [phone] Serum or plasma albumin petr urement (mass/volume)on 03-23-2022 Albumin [Mass/Vol] 3.7 g/dL 3.2-5.0 [facility] Work Phone: [phone] Serum or plasma albumin/glob ulin mass ratioon 03-23-2022 Albumin/Globulin [Mass ratio] 0.9 {ratio} 0.9-2.4 [facility] Work Phone: [phone] Serum or plasma calcium petr urement (mass/volume)on 03-23-2022 Calcium [Mass/Vol] 8.9 mg/dL 8.5-10.1 [facility] Work Phone: [phone] Serum or plasma creatinine m easurement (mass/volume)on 03-23-2022 Creatinine [Mass/Vol] 0.85 mg/dL 0.55-1.02 [facility] Work Phone: [phone] Comment on above: The validity of the calculated GFR & GFRAA in patients over 70 years has not been determined. Clinical correlation is essential. Serum or plasma urea nitroge n measurement (mass/volume)on 03-23-2022 Urea nitrogen [Mass/Vol] 18 mg/dL -18 [facility] Work Phone: [phone] Thin prep Papanicolaou smear with manual screeningon 03-23-2022 Thin prep Papanicolaou smear with manual screening 15 U/L 15-37 [facility] Work Phone: [phone] Thin prep Papanicolaou smear with manual screening 8 5-15 [facility] Work Phone: [phone] Absolute lymphocyte counton 12-22-2021 Lymphocytes Auto (Unsp spec) [#/Vol] 4.00 10*3/uL 0.83-4.51 [facility] Work Phone: Basophil percentageon 2021 Basophils/100 WBC (Bld) 0.4 % 0-1 [facility] Work Phone: Bilirubin [Mass/Vol] 0.30 mg/dL 0.20-1.00 [facility] Work Phone: Comment on above: For patients on eltr ombopag therapy, use of Dimension [place] TBIL is not recommended. Chloride [Moles/Vol] 101 mmol/L 98-107 [facility] Work Phone: Eosinophils/100 WBC (Bld) 0.1 % 0-5 [facility] Work Phone: Glucose [Mass/Vol] 124 mg/dL 74-106 [facility] Work Phone: Comment on above: Fasting Glucose resu lt from 100 to 125 mg/dL suggests IMPAIRED HOMEOSTASIS per A.D.A. criteria. Neutrophils (Bld) [#/Vol] 6.5 10*3/uL 2.0-7.7 [facility] Work Phone: Neutrophils/100 WBC (Bld) 57.6 % 47-70 [facility] Work Phone: Potassium [Moles/Vol] 3.7 mmol/L 3.5-5.1 [facility] Work Phone: Protein [Mass/Vol] 8.1 g/dL 6.4-8.2 [facility] Work Phone: Sodium [Moles/Vol] 136 mmol/L 136-145 [facility] Work Phone: WBC (Bld) [#/Vol] 11.3 10*3/uL 4.4-11.0 [facility] Work Phone: Blood erythrocytes count (nu mber/volume)on 12-22-2021 RBC (Bld) [#/Vol] 5.19 10*6/uL 4.2-5.4 [facility] Work Phone: Blood hemoglobin measurement (mass/volume)on 12-22-2021 Hemoglobin (Bld) [Mass/Vol] 14.5 g/dL 12.0-15.0 [facility] Work Phone: Blood lymphocytes/100 leukoc yteson 12-22-2021 Lymphocytes/100 WBC (Bld) 35.5 % 19-41 [facility] Work Phone: [phone] Blood monocytes/100 leukocyt eson 12-22-2021 Monocytes/100 WBC (Bld) 6.2 % 0-10 [facility] Work Phone: Blood platelet mean volumeon 12-22-2021 Platelet mean volume (Bld) [Entitic vol] 10.2 fL 6.2-12.0 [facility] Work Phone: [phone] Determination of erythrocyte mean corpuscular volume (MCV)on 12-22-2021 MCV (RBC) [Entitic vol] 85.0 fL 81-99 [facility] Work Phone: Hematocrit Auto (Bld) [Volum e fraction]on 12-22-2021 Hematocrit (Bld) [Volume fraction] 44.1 % 37-47 [facility] Work Phone: Laboratory - Chemistry and C hemistry - challengeon 12-22-2021 ALP [Catalytic activity/Vol] 89 U/L 45-117 [facility] Work Phone: ALT [Catalytic activity/Vol] 35 U/L 13-56 [facility] Work Phone: CO2 [Moles/Vol] 30.0 mmol/L 21.0-32.0 [facility] Work Phone: Globulin (S) [Mass/Vol] 4.5 g/dL 2.2-4.2 [facility] Work Phone: Urea nitrogen/Creatinine [Mass ratio] 21.4 mg/mg 10-20 [facility] Work Phone: Laboratory - Hematology and Cell countson 12-22-2021 Erythrocyte distribution width (RBC) [Entitic vol] 40.2 fL 35.1-43.9 [facility] Work Phone: Erythrocyte distribution width (RBC) [Ratio] 13.1 % 11.6-14.6 [facility] Work Phone: Immature granulocytes/100 WBC (Bld) 0.200 % 0.0-0.9 [facility] Work Phone: Comment on above: IG% - Immature Granu locytes (promyelocytes, myelocytes and metamyelocytes) > 1% indicates that a LEFT SHIFT is Present. MCH (RBC) [Entitic mass] 27.9 pg 27.0-32.0 [facility] Work Phone: Nucleated RBC/100 WBC (Bld) [Ratio] 0 % 0-5 [facility] Work Phone: [phone] MCHC Auto (RBC) [Mass/Vol]on 12-22-2021 MCHC (RBC) [Mass/Vol] 32.9 g/dL 32-36 [facility] Work Phone: No Panel Informationon 12-22 Estimated GFR (MDRD) Amer 103 mL/min >60 [facility] Work Phone: Comment on above: GFR Calc Estimated GFR (MDRD) Non-Af Amer 85 mL/min >60 [facility] Work Phone: Comment on above: Non- GFR Calc Thyroid Stimulating Hormone (TSH) 1.81 uIU/mL 0.358-3.74 [facility] Work Phone: Platelets bldon 12-22-2021 Platelets (Bld) [#/Vol] 280 10*3/uL 150-450 [facility] Work Phone: [phone] Serum or plasma albumin petr urement (mass/volume)on 12-22-2021 Albumin [Mass/Vol] 3.6 g/dL 3.2-5.0 [facility] Work Phone: Serum or plasma albumin/glob ulin mass ratioon 12-22-2021 Albumin/Globulin [Mass ratio] 0.8 {ratio} 0.9-2.4 [facility] Work Phone: Serum or plasma calcium petr urement (mass/volume)on 12-22-2021 Calcium [Mass/Vol] 8.9 mg/dL 8.5-10.1 [facility] Work Phone: Serum or plasma creatinine m easurement (mass/volume)on 12-22-2021 Creatinine [Mass/Vol] 0.75 mg/dL 0.55-1.02 [facility] Work Phone: Comment on above: The validity of the calculated GFR & GFRAA in patients over 70 years has not been determined. Clinical correlation is essential. Serum or plasma urea nitroge n measurement (mass/volume)on 12-22-2021 Urea nitrogen [Mass/Vol] 16 mg/dL 7-18 [facility] Work Phone: Thin prep Papanicolaou smear with manual screeningon 12-22-2021 Thin prep Papanicolaou smear with manual screening 19 U/L 15-37 [facility] Work Phone: Thin prep Papanicolaou smear with manual screening 5 5-15 [facility] Work Phone: CNPTabatha 04-02-2021 [facility] Telephone (AGGYNONPOZenia) SHANNAN JAIMES ([id number]) 1965 F Date Time Provider Department 04/02/21 MARA JACKSON During your visit today, we recorded the following information about you: Siomara Santiago MA 04/02/2021 11:16 AM Signed Patient called asking if her fit for duty form she brought in yesterday was faxed to [facility]. Siomara Santiago MA 04/02/2021 1:18 PM Signed Notified patient that Tabitha sent office notes and fit for duty form to [facility]. No further questions were asked. Allergies As of Date: 04/02/2021 Noted Allergy Reaction PERCODAN (OXYCODONE-ASPIRIN) 05/04/2006 2 - Rash Date Reviewed: 04/01/2021 Reviewed by: Siomara Santiago MA - Fully Assessed Reason for Visit: Patient Question [9327] Prescriptions as of 04/02/2021 Sig: IBUPROFEN 600 MG TABLET Take 1 tablet by mouth every * ACETAMINOPHEN 500 MG TABLET Take 1 tablet by mouth every * MULTIPLE VITAMIN TABLET Take 1 tablet by mouth once d* Problem List As Of Date 04/02/2021 Noted Resolved Menorrhagia [N92.0] 10/08/2014 Obesity, Class III, BMI >= 40 [E66.01] 02/16/2021 Encounter Status:Closed by SIOMARA SANTIAGO on 04/02/21 [facility] CNOVSPon 04-01-2021 OVS Visit (SP) Office (MIL) SHANNAN JAIMES ([id number]) 1965 F Date Time Provider Department 04/01/21 [...] adhesions, TLH, BSO, SLN ? PATHOLOGY: A. ?[place] lymph nodes, left pelvic, excision? 2 lymph nodes, negative for malignancy (0/2). B. ?Uterus, cervix, bilateral fallopian tubes and bilateral ovaries, hysterectomy and bilateral salpingo-oophorectomy ? Cervix? Negative for neoplasm. Endometrium?Atypical endometrial hyperplasia. ?See comment. Myometrium? Leiomyomata (1.3 cm in greatest dimension, intramural). ?Focal adenomyosis. Serosa?Fibrous adhesions. Right and left ovaries? Endosalpingosis. Right and left fallopian tubes? Benign paratubal cysts. ?Fibrous adhesions. C. ?[place] lymph node, right pelvic, excision? 1 lymph [...] all pre-disease performance without restriction). Mara Jackson, TEST MAN.SWATCH CLERK OBJECTIVE: VITALS: BP 138/70 (BP Site: Right Arm, BP Position: Sitting, BP Cuff Size: Regular Adult) Pulse 98 Ht 162.6 cm (5' 4) Wt (!) 143.3 kg (316 lb) LMP [...] to: Dr. Vidales Referring Provider: SATISH VIDALES [[id number]] Allergies As of Date: 04/01/2021 Noted Allergy Reaction PERCODAN (OXYCODONE-ASPIRIN) 05/04/2006 2 - Rash Date Reviewed: 04/01/2021 Reviewed by: Siomara Santiago MA - Fully Assessed Reason for Visit: Established Patient [175] Cmt: Cuff check Primary Visit Diagnosis:Post-operat [place] [Z98.890] Prescriptions as of 04/01/2021 Sig: [...] Encounter Status:Closed by MARA JACKSON on 04/01/21 [facility] CNOVSPon 03-04-2021 CNOVSP Visit (SP) Office (AGGYNONPOB) SHANNAN JAIMES ([id number]) 1965 F Date Time Provider Department 03/04/21 [...] of adhesions, TLH, BSO, SLN PATHOLOGY: A. [place] lymph nodes, left pelvic, excision? 2 lymph nodes, negative for malignancy (0/2). B. Uterus, cervix, bilateral fallopian tubes and bilateral ovaries, hysterectomy and bilateral salpingo-oophorectomy ? Cervix? Negative for neoplasm. Endometrium?Atypical endometrial hyperplasia. See comment. Myometrium? Leiomyomata (1.3 cm in greatest dimension, intramural). ?Focal adenomyosis. Serosa?Fibrous adhesions. Right and left ovaries? Endosalpingosis. Right and left fallopian tubes? Benign paratubal cysts. ?Fibrous adhesions. C. [place] lymph node, right pelvic, excision? 1 lymph [...] (98 ?F) (Tympanic) Ht 162.6 cm (5' 4) Wt (!) 145.6 kg (321 lb) LMP 11/09/2015 (Exact Date) SpO2 98% BMI 55.10 kg/m? HEENT: Normocephalic, atraumatic, mucus membranes moist and no lesions ABDOMEN: Abdomen soft, non-tender, no hepatosplenomegaly. Incision healing well. PELVIC: Deferred LOWER EXTREMITIES: No pitting edema, no palpable cords and no skin changes. Clinical Care Manager for exam: DO Rolf ASSESSMENT: 55 y/o [...] Encounter Status:Closed by SATISH [facility]IDALES [facility]08/[facility] (AGGVivaSmartONPOB) SHANNAN JAIMES ([id number]) 1965 F Date Time Provider Department 02/18/21 MARA JACKSON (LEWIS, VERONICA) GIVTEDONPOB During your visit today, we recorded the following information about you: Mara Jackson APRN.CNP, CNP 02/18/2021 12:12 PM Signed One incision opened [...] Status:Closed by MARA JACKSON CNP on 02/18/21 [facility] ANES POSTPROC EVALon 021 ANES POSTPROC EVAL HNO ID: [id number] Author: Jeremy Burgos Service: Anesthesiology Author Type: Physician Type: Anesthesia Postprocedure Evaluation Filed: 02/17/2021 1:21 PM Note Text: POST ANESTHESIA EVALUATION NOTE : 1965 Procedure Summary Date: 02/17/21 Room / Location: [facility] [place] [address] [place] [address] OR Anesthesia Start: 838 Anesthesia Stop: 1247 Procedures: LAPAROSCOPIC HYSTERECTOMY TOTAL [...] February 17, 2021 TIME: 1:21 PM CSN: [id number] [facility] ANES PRE-OPon 02-17-2021 ANES PRE-OP HNO ID: [id number] Author: Jeremy Burgos Service: Anesthesiology Author Type: [...] Height as of 02/11/21: 162.6 cm (5' 4). Weight as of 02/11/21: 146.5 kg (323 [...] February 17, 2021 TIME: 8:21 AM CSN: [id number] [facility] BRIEF OP NOTon 02-17-2021 BRIEF OP NOT HNO ID: [id number] Author: Veronica Bansal Service: Gynecology Oncology Author Type: Resident Type: Brief Op Note Filed: 02/17/2021 12:39 PM Note Text: Attestation signed by Satish Vidales at 02/17/2021 10:32 PM See operative note BRIEF OPERATIVE NOTE LOG ID: [id number] SURGERY/PROCEDURE DATE: 02/17/2021 INCISION/PROCEDURE START TIME: 9:20 AM INCISION CLOSE/PROCEDURE END TIME: 12:33 PM SURGEON(S)/PROCEDURAL IST(S) AND FIELD MANAGER(S): Surgeon(s) and Role: * Satish Vidales - Celine * Veronica Bansal - Resident - Assisting [...] URINE: 200cc clear, yellow PRE-OP/PRE-PROCEDURE DIAGNOSIS: CAH POST-OP/POST-PROCEDUR E DIAGNOSIS: Same as Preop SIGNATURE: Veronica Bansal DO PATIENT NAME: Shannan Jaimes DATE: February 17, 2021 TIME: 12:37 PM [facility] OPERATIVE NOon 02-17-2021 OPERATIVE NO HNO ID: [id number] Author: Satish Vidales Service: Gynecology Oncology Author Type: Physician Type: Operative Report Filed: 02/21/2021 9:53 PM Note Text: SECURITY DISPATCHER OPERATIVE/PROCEDURE REPORT LOG ID: [id number] Surgery/Procedure Date: 02/17/2021 Incision/Procedure Start Time: 9:20 AM Incision Close/Procedure End Time: 12:33 PM Surgeon(s)/Procedural ist(s) and Mill Worker(s): Surgeon(s) and Role: * Satish Vidales - Celine * Veronica Bansal - Resident - Assisting * Vicky Archer MD - Resident - Assisting Procedures: 1. Exam under anesthesia 2. Laparoscopic lysis of adhesions 3. Total laparoscopic hysterectomy, bilateral salpingo-oophorectomy 4. [place] lymph node mapping, bilateral 5. [place] lymph node biopsy, bilateral Preoperative Diagnosis: 1. Endometrial cancer Postoperative Diagnosis: 1. Endometrial cancer. Indications: This is a 55 y/o female who was referred to mo for evaluation and management of complex atypical [...] then developed. The ureter was mobilized medially. [place] lymph node was identified at the bifurcation [...] the periton (more content not included)... Normal [facility] SURGICAL PATHOLOGYon [address] [facility] Comment on above: Order Comment: Speci men Type: TISSUE SPECIMEN Result Comment: [facility]urg [facility] Pathology Report Case: [id number] Authorizing Provider: Satish Vidales Collected: 02/17/2021 11:09 AM Ordering Location: [facility] Received: 02/18/2021 06:53 AM Pathologist: Precious Graff MD Specimens: A) - SENTINEL LYMPH NODE LEFT, Left Pelvic Sentinal Lymph Node B) - UTERUS, CERVIX, BILATERAL FALLOPIAN TUBES AND BILATERAL OVARIES C) - SENTINEL LYMPH NODE RIGHT, right pelvic sentinel lymph node Performed By: #### S #### [facility] CLIA [id number] [address] [place] [address] [facility] Comment on above: Order Comment: Speci men Type: TISSUE SPECIMEN Result Comment: A, C . The sentinel lymph nodes were examined using the sentinel lymph node protocol including deeper H&E sections and 10 cytokeratin AE1/3 immunostains which are negative. B. The entire endomyometrial junction was submitted for histologic evaluation. Select slides of part B were reviewed at the [facility] gynecologic pathology consensus conference on 02/23/2021 and the diagnosis above reflects the consensus opinion of those present. Laboratory Developed Test (LDT) Disclaimer: Performance characteristics of immunohistochemical, immunofluorescent and chromogenic in-situ hybridization tests have been determined by the performing laboratory within [facility]???[facility] Pathology and Laboratory Medicine [place] ([facility], [facility], or [facility]) in a manner consistent with CLIA requirements. One or more of these tests have not been cleared or approved by the FDA. [facility] is regulated under CLIA as qualified to perform high-complexity testing. These tests are used for clinical purposes. They should not be regarded as investigational or for research. Positive and negative controls stain appropriately. Performed By: #### S #### [facility] CLIA [id number] [address] [place] [address] [facility] Comment on above: Order Comment: Speci [...] tubes Benign paratubal cysts. Fibrous adhesions. C. [place] lymph node, right pelvic, excision 1 lymph node, negative for malignancy (0/1). Performed By: #### S #### [facility] CLIA [id number] [address] [place] [address] FINAL PERFORMING LAB Normal [facility] Comment on above: Order Comment: Speci men Type: TISSUE SPECIMEN Result Comment: Diag nostic interpretation performed at [facility], [address] [place] [id number] CLIA# [id number] Tonguer: Rajinder Alfaro M.D. Performed By: #### S #### [facility] CLIA [id number] [address] [place] [id number] GROSS DESCRIPTION Normal [facility] Comment on above: Order Comment: Speci [...] whorled rubbery nodule totally submitted; B26 - direct customer service representative section of fat adhered to anterior surface of uterus; B27 - direct customer service representative sections of right ovary; B28 - direct customer service representative sections of right fallopian tube; B29 - right fimbriated end totally submitted; B30-B31 - direct customer service representative sections of left ovary; B32 - direct customer service representative sections of left fallopian tube; B33 - left fimbriated end totally submitted. C. SENTINEL LYMPH NODE RIGHT. Received in formalin labeled right pelvic sentinel lymph node is a yellow-long rubbery nodule resembling a lymph node measuring 1.6 x 1.4 x 1.2 cm. The specimen is serially sectioned and totally submitted in formalin in 2 cassettes. KVB/mariana Gross examination performed at [facility], [address] [place] [address] CLIA# [id number] Performed By: #### S #### [facility] CLIA [id number] [address] [place] [id number] PreOp/PreProc COVIDon 2020 SARS-CoV-2 (COVID-19) RNA AUDREY+probe Ql (Unsp spec) UPPER RESPIRATORY TRACT SWAB Normal [facility] Comment on above: Performed By: #### P OCOVD #### [place] [id number] SARS-CoV-2 (COVID-19) RNA AUDREY+probe Ql (Unsp spec) Negative Normal Negative for COVID19 (SARS CoV2) by PCR. [facility] Comment on above: Result Comment: This test was developed and its performance characteristics determined by [facility]'s [facility] Pathology and Laboratory Medicine [place]. This test has been authorized by FDA under an Emergency Use Authorization (EUA). This test has been validated in accordance with the FDA's Guidance Document Policy for Diagnostics Testing in Laboratories Certified to Perform High Complexity Testing under CLIA prior to Emergency use Authorization for Coronavirus Disease 2019 during the Public Health Emergency issued on January 04, 2020. Test performed by [facility], [facility] Pathology and Laboratory Medicine [place], [address] [place] [address]. Performed By: #### P OCOVD #### [place] [address] HISTORY PHYSICALon HISTORY PHYSICAL HNO ID: [id number] Author: Petra Wang Service: ? Author Type: [...] pap test. She has a hysteroscopy a DANPA and a biopsy and she was told [...] with Dr. Vidales Surgery will be at [facility] Have you been in contact with someone with known coronavirus/Covid 19? no Have you had surgery or pre testing at [facility] in the past 3 years? no REVIEW OF SYSTEMS: General: No weight loss, malaise or fevers. Neurological: No history of TIA's, stroke, SHOWCASE TRIMMER tumor, impaired sensorium, hemiplegia, paraplegia or quadraplegia. No neurological symptoms or problems. Negative for: headaches and seizures Respiratory: No history of current cough or dyspnea, or pneumonia in the past 6 weeks. No history of respiratory/pulmonary symptoms or problems. Negative for: asthma, COPD, tobacco use and obstructive sleep apnea Cardiovascular: No history of HTN requiring medication, no history of angina, CHF, PR, cardiac surgery or stents. Denies rest pain, gangrene or revascularization/amp utation for PVD. No history of cardiovascular symptoms or problems. GI: No history of GI symptoms or problems. No history of esophageal varices, recent ascites, or ETOH greater than 2 drinks per day. Negative for: abdominal pain, nausea and vomiting : No history of dysuria, frequency or incontinence, stones or chronic kidney disease. No difficulty urinating, nocturia > 1 time per night or hematuria. SECURITY DISPATCHER: + endometrial cancer. + hx monophagia.+ post [...] gallop. Respirat (more content not included)... Normal [facility] Basic metabolic 2000 panelon 02-05-2021 Anion gap [Moles/Vol] 10 mmol/L Normal 9-18 [facility] Comment on above: Order Comment: Speci men Type: BLOOD SPECIMEN Performed By: #### 2 4321-2 #### [facility] CLIA [id number] [address] [place] [address] Calcium [Mass/Vol] 9.1 mg/dL Normal 8.5-10.2 [facility] Comment on above: Order Comment: Speci men Type: BLOOD SPECIMEN Performed By: #### 2 4321-2 #### [facility] CLIA [id number] [address] [place] [address] Chloride [Moles/Vol] 101 mmol/L Normal 97-105 [facility] Comment on above: Order Comment: Speci men Type: BLOOD SPECIMEN Performed By: #### 2 4321-2 #### [facility] CLIA [id number] [address] [place] [address] CO2 [Moles/Vol] 26 mmol/L Normal 22-30 [facility] Comment on above: Order Comment: Speci men Type: BLOOD SPECIMEN Performed By: #### 2 4321-2 #### [facility] CLIA [id number] [address] [place] [address] Creatinine [Mass/Vol] 0.64 mg/dL Normal 0.58-0.96 [facility] Comment on above: Order Comment: Speci men Type: BLOOD SPECIMEN Performed By: #### 2 4321-2 #### [facility] CLIA [id number] [address] [place] [address] GFR/1.73 sq M.predicted MDRD (S/P/Bld) [Vol rate/Area] mL/min/{1.73_m2} Normal [facility] Comment on above: Order Comment: Speci [...] GFR. Performed By: #### 2 4321-2 #### [facility] CLIA [id number] [address] [place] [address] Glucose [Mass/Vol] 118 mg/dL High 74-99 [facility] Comment on above: Order Comment: Speci men Type: BLOOD SPECIMEN Result Comment: The [place] [employer] (ADA) provides guidance for cutoff [...] Standards of Medical Care in Diabetes 2016, [place] [employer]. Diabetes Care. 2016.39(Suppl 1). Performed By: #### 2 4321-2 #### [facility] CLIA [id number] [address] [place] [address] Potassium [Moles/Vol] 4.1 mmol/L Normal 3.7-5.1 [facility] Comment on above: Order Comment: Speci men Type: BLOOD SPECIMEN Performed By: #### 2 4321-2 #### [facility] CLIA [id number] [address] [place] [place] [address] Sodium [Moles/Vol] 137 mmol/L Normal 136-144 [facility] Comment on above: Order Comment: Speci men Type: BLOOD SPECIMEN Performed By: #### 2 4321-2 #### [facility] CLIA [id number] [address] [place] [address] Urea nitrogen [Mass/Vol] 11 mg/dL Normal 7-21 [facility] Comment on above: Order Comment: Speci men Type: BLOOD SPECIMEN Performed By: #### 2 4321-2 #### [facility] CLIA [id number] [address] [place] [address] CBC panel Auto (Bld)on 02-05 Erythrocyte distribution width (RBC) [Ratio] 14.6 % Normal 11.5-15.0 [facility] Comment on above: Order Comment: Speci men Type: BLOOD SPECIMEN Performed By: #### 5 8410-2 ####[facility] [id number] [place] [address] Hematocrit (Bld) [Volume fraction] 46.3 % High 36.0-46.0 [facility] Comment on above: Order Comment: Speci men Type: BLOOD SPECIMEN Performed By: #### 5 8410-2 ####[facility] [id number] [place] [address] Hemoglobin (Bld) [Mass/Vol] 14.8 g/dL Normal 11.5-15.5 [facility] Comment on above: Order Comment: Speci men Type: BLOOD SPECIMEN Performed By: #### 5 8410-2 ####[facility] [id number] [place] [address] MCH (RBC) [Entitic mass] 28.0 pg Normal 26.0-34.0 [facility] Comment on above: Order Comment: Speci men Type: BLOOD SPECIMEN Performed By: #### 5 8410-2 ####[facility] [id number] [place] [address] MCHC (RBC) [Mass/Vol] 32.0 g/dL Normal 30.5-36.0 [facility] Comment on above: Order Comment: Speci men Type: BLOOD SPECIMEN Performed By: #### 5 8410-2 ####[facility] [id number] [place] [address] MCV (RBC) [Entitic vol] 87.5 fL Normal 80.0-100.0 [facility] Comment on above: Order Comment: Speci men Type: BLOOD SPECIMEN Performed By: #### 5 8410-2 ####[facility] [id number] [place] [address] Nucleated RBC (Bld) [#/Vol] 10*3/uL Normal <0.01 [facility] Comment on above: Order Comment: Speci men Type: BLOOD SPECIMEN Performed By: #### 5 8410-2 ####[facility] [id number] [place] [address] Platelet mean volume (Bld) [Entitic vol] 10.3 fL Normal 9.0-12.7 [facility] Comment on above: Order Comment: Speci men Type: BLOOD SPECIMEN Performed By: #### 5 8410-2 ####[facility] [id number] [place] [address] Platelets (Bld) [#/Vol] 282 10*3/uL Normal 150-400 [facility] Comment on above: Order Comment: Speci men Type: BLOOD SPECIMEN Performed By: #### 5 8410-2 ####[facility] [id number] [place] [address] RBC (Bld) [#/Vol] 5.29 10*6/uL High 3.90-5.20 [facility] Comment on above: Order Comment: Speci men Type: BLOOD SPECIMEN Performed By: #### 5 8410-2 ####[facility] [id number] [place] [address] WBC (Bld) [#/Vol] 10.83 10*3/uL Normal 3.70-11.00 [facility] Comment on above: Order Comment: Speci men Type: BLOOD SPECIMEN Performed By: #### 5 8410-2 ####[facility] [id number] [place] [address] CNOVSPon 02-05-2021 CNOVSP Visit (SP) Office (MIL) SHANNAN JAIMES ([id number]) 1965 F Date Time Provider Department 02/05/21 [...] lower extremity edema, or palpitations. No recent PR (within 6 months), cardiac stent, cardiac surgery, [...] of drug dependency, or recent psychosocial stressors. HEMATOLOGY/LYMPHOLOGY : No prolonged bleeding, bruising easily, swollen nodes, or anemia. No prior history of a blood clot or clotting disorder. No prior history of a bleeding disorder. Not on chronic anticoagulant/platele t medications. ENDOCRINE: No cold or heat intolerance, [...] (97.7 ?F) (Tympanic) Ht 162.6 cm (5' 4) Wt (!) 147 kg (324 lb) LMP [...] of comple (more content not included)... Normal [facility] CONFIRM BLOOD TYPEon [address] [facility] Comment on above: Order Comment: Speci men Type: BLOOD SPECIMEN Performed By: #### C ONABO ####[facility] [id number] [place] [address] Rh Nom (Bld) Negative Normal [facility] Comment on above: Order Comment: Speci men Type: BLOOD SPECIMEN Performed By: #### C ONABO ####[facility] [id number] [place] [address] PT panel Coag (PPP)on 2020 INR Coag (PPP) [Relative time] 1.0 {INR} Normal 0.9-1.3 [facility] Comment on above: Order Comment: Speci men Type: BLOOD SPECIMEN Result Comment: Ghislaine min K Antagonist (VKA) Therapeutic Range: INR 2 to 3 (Target INR of 2.5) Note: For patients treated with VKA drugs, such as warfarin, the [employer] 2012 Guideline recommends [...] Chest 2012, 141:7S-47S Bert RA, et al. JAC 2017, 70: 252-289 Performed By: #### 3 4528-0, 23044-2 #### [facility] CLIA [id number] [address] [place] [address] PT Coag (PPP) [Time] 10.8 s Normal 9.7-13.0 [facility] Comment on above: Order Comment: Speci men Type: BLOOD SPECIMEN Performed By: #### 3 4528-0, 45350-8 #### [facility] CLIA [id number] [address] [place] [address] TYPE AND SCREEN,30 DAYon ABO O Normal [facility] Comment on above: Order Comment: Speci men Type: BLOOD SPECIMEN Performed By: #### T SCR30 ####[facility] [id number] [place] [address] HISTORICAL AB SCR STATUS Negative Normal [facility] Comment on above: Order Comment: Speci men Type: BLOOD SPECIMEN Performed By: #### T SCR30 ####[facility] [id number] [place] [address] Rh Nom (Bld) Negative Normal [facility] Comment on above: Order Comment: Speci men Type: BLOOD SPECIMEN Performed By: #### T SCR30 ####[facility] [id number] [place] [id number] TYPE AND SCREEN EXPIRATION 03/07/2021 23:[address] [facility] Comment on above: Order Comment: Speci men Type: BLOOD SPECIMEN Performed By: #### T SCR30 ####[facility] [id number] [place] [id number] aPTT PPPon 02-05-2021 aPTT Coag (PPP) [Time] 28.8 s Normal 23.0-32.4 [facility] Comment on above: Order Comment: Speci men Type: BLOOD SPECIMEN Performed By: #### 3 4528-0, 00236-4 #### [facility] CLIA [id number] [place] [address] CNPNon 01-18-2021 CNPN Telephone (OBGYWM) SHANNAN JAIMES ([id number]) 1965 F Date Time Provider Department 01/18/21 [...] Status:Closed by ADRIANA HANEY RN on 01/18/21 [facility] SH[facility] JA[facility] ([id number]) 1965 F Date Time Provider Department 01/18/21 [...] call will call her back. Consult for SECURITY DISPATCHER ONC- Complex hyperplasia with atypia. Order placed. Dayna Godfrey MD 01/19/2021 9:02 AM Signed I spoke with patient- she understands recommendation to see SECURITY DISPATCHER ONC and to likely proceed with Hysterectomy and possible staging if needed due to Complex hyperplasia with atypia. Consult order placed. Please assist in scheduling with Dr. Satish Whitten at [facility]. Pt states she can go for consultation any day. Please make sure pathology gets uploaded to [employer] chart. Thank you. Samantha Cruz RN 01/19/2021 [...] hyperplasia with atypia [N85.02] Order(s):CONSULT TO GYNECOLOGIC/ONCOLOGY [[id number]] Order #: [id number]: 1 FUTURE Prescriptions as of 01/18/2021 Sig: MISOPROSTOL 200 MCG TABLET Take two tablets PO night bef* IBUPROFEN 600 MG TABLET Take 1 tablet by mouth every * MULTIPLE VITAMIN TABLET Take one(1) tablet daily. Problem List As Of Date 01/18/2021 Noted Resolved Menorrhagia [N92.0] 10/08/2014 Encounter Status:Closed by SAMANTHA CRUZ RN on 01/19/21 [facility] CNOVon 01-04-2021 CNOV Office Visit (OBGYWM ) THEODORESHANNAN S ([id number]) 1965 F Date Time Provider Department 01/04/21 4:20 PM DAYNA GONGORA During your visit today, we [...] +covid testing. She is scheduled for Hysteroscopy JOLLYPA, for stenotic cervix, PMB, thickened Endometrium on 01/14/21. Procedure discussed along with risks, benefits and complications. Other alternatives discussed for management. Consent form signed? Yes. PAST MEDICAL HISTORY Diagnosis Date - Menorrhagia PAST SURGICAL HISTORY Procedure Laterality Date - DELIVERY ONLY , low cervical, X-2 - COLONOSCOP W/ OR W/O [facility] SPEC 09/18/2018 Colonoscopy - HYSTEROSCOPY BX W/WO [...] history, medications and allergies Dayna Medina MD Referring Provider: SELF [200] Allergies As [...] Status:Closed by DAYNA MEDINA MD on 01/04/21 Normal [facility] HISTORY PHYSICALon HISTORY PHYSICAL HNO ID: [id number] Author: Dayna Medina Service: ? Author Type: [...] cervical, X-[facility] Colonoscopy - HYSTEROSCOPY BX W/WO [...] medications and allergies Dayna Medina MD Normal [facility] Vital Signs Date Time Vital Sign Value Performing Clinician Narciso purvis 12-31-2024 16:15-0500 Body height 162.[address] Jeet Farnsworth MD Work Phone: [facility] 12-31-2024 16:15-0500 Body weight 142.[address] Jeet Farnsworth MD Work Phone: [facility] 11-27-2024 17:00-0500 Body weight 144.[address] Jeet Farnsworth MD Work Phone: [facility] 10-22-2024 15:00-0500 Body weight 143.[address] Jeet Farnsworth MD Work Phone: [facility] Encounters Encounter Date Encounter Type Care Provider Facility Start: 04-03-2025 End: 04-03-[address] Jeet Farnsworth MD Work Phone: [facility] Work Phone: Start: 04-03-2025 End: 04-03-[address] Jeet Farnsworth MD -Outpatient Breast Imaging Work Phone: Start: 04-03-2025 End: 04-03-2025 [facility]ulatory [facility] Facility[facility] Start: 03-03-2025 End: 03-03-[address] Jeet Farnsworth MD -Laboratory Work Phone: Start: 03-03-2025 End: 03-03-2025 ambulatory Jeet [facility] Facility:[facility] Start: 02-03-2025 ambulatory [facility] Facility:[facility] Start: 01-07-2025 End: 01-07-[address] Jeet Farnsworth MD Work Phone: [facility] Work Phone: Start: 01-07-2025 End: 01-07-[address] Jeet Farnsworth MD -Laboratory, Phy Office 3rd Flr Start: 01-07-2025 End: 01-07-2025 ambulatory Jeet Farnsworth Facility:[facility] Start: 12-31-2024 End: 01-03-2025 ambulatory Jeet Chi Javad Facility:[facility] Start: 12-31-2024 End: 01-03-[address] Jeet Farnsworth MD -Nutritional Servic es Work Phone: Start: 12-17-2024 End: 12-17-[address] Jeet Farnsworth MD -Laboratory Work Phone: Start: 12-17-2024 End: 12-17-2024 ambulatory Jeet Chi Javad Facility:[facility] Start: 11-27-2024 End: 12-06-2024 ambulatory Jeet Chi Javad Facility:[facility] Start: 11-27-2024 End: 12-06-[address] Jeet Farnsworth MD -Nutritional Servic es Work Phone: Start: 11-22-2024 End: 11-22-[address] Jeet Farnsworth MD -Laboratory, [facility] Office [address] [place] [address] Start: 11-22-2024 End: 11-22-2024 ambulatory Jeet Chi Javad Facility:[facility] Start: 10-22-2024 End: 11-05-[address] Jeet Farnsworth MD -Nutritional Servic es Work Phone: Start: 10-22-2024 End: 11-05-2024 ambulatory Jeet Chi Javad Facility:[facility] Start: 09-23-2024 End: 09-23-[address] Jeet Farnsworth MD -Ultrasound, [facility] Work Phone: Start: 09-23-2024 End: 09-23-2024 ambulatory Jeet Chi Javad Facility:[facility] Start: 09-17-2024 End: 10-05-2024 ambulatory Jeet Chi Javad Facility:[facility] Start: 09-06-2024 End: 09-06-2024 ambulatory Jeet Chi Javad Facility:[facility] Start: 09-04-2024 End: 09-04-2024 ambulatory Jeet Chi Javad Facility:[facility] Start: 09-03-2024 End: 09-03-2024 ambulatory Jeet Chi Javad Facility:[facility] Start: 10-03-2023 End: 10-03-2023 ambulatory [facility] Work Phone: Start: 10-03-2023 End: 10-03-2023 Patient encounter procedure [facility]-Laboratory, Phy Office 3rd Flr Start: 02-13-2023 End: 02-13-2023 ambulatory [facility] Work Phone: Start: 02-13-2023 End: 02-13-2023 Patient encounter procedure [facility]-Outpatient Breast Imaging Start: 03-23-2022 End: 03-23-2022 Patient encounter procedure [facility]-Laboratory, Phy Office 3rd Flr Start: 12-22-2021 End: 12-22-2021 Patient encounter procedure [facility]-Laboratory, Phy Office 3rd Flr Procedures Date Procedure Procedure Detail Performing Clinician Start: 04-03-2025 Screening mammography Paulina Farnsworth MD Work Phone: Start: 12-17-2024 Measurement of renal function Dr. Jeet Farnsworth MD Work Phone: Comment on above: GFR Calc Start: 09-23-[address] Jeet Farnsworth MD Work Phone: Start: 02-13-2023 Screening mammography Start: 02-05-2021 Antibody screen Comment on above: Order Comment: Speci men Type: BLOOD SPECIMEN Performed By: #### T SCR30 ####[facility] [id number] [place] [address] Plan of Treatment Date Care Activity Detail Author Patient referral [facility] Work Phone: Immunizations Immunization Date Immunization Notes Care Provider Fa cility 08-03-2023 influenza, injectabl e, quadrivalent, preservative free [facility] 08-04-2022 influenza, injectabl e, quadrivalent, preservative free [facility] 08-04-2022 influenza, seasonal, injectable [facility] 07-22-2022 Covid Moderna Bivale nt Booster [facility] 09-08-2021 Covid (Moderna) [facility] 12-07-2020 Covid (Moderna) [facility] 11-09-2020 Covid (Moderna) [facility] 08-04-2020 influenza, injectabl e, quadrivalent, preservative free [facility] 08-04-2020 influenza, seasonal, injectable [facility] 08-01-2019 influenza, injectabl e, quadrivalent, preservative free [facility] 08-01-2019 influenza, seasonal, injectable [facility] 07-23-2018 influenza, injectabl e, quadrivalent, preservative free [facility] 07-23-2018 influenza, seasonal, injectable [facility] 08-02-2017 influenza, injectabl e, quadrivalent, preservative free [facility] 08-02-2017 influenza, seasonal, injectable [facility] 08-04-2016 influenza, injectabl e, quadrivalent, preservative free [facility] 08-04-2016 influenza, seasonal, [facility] 08-05-2015 influenza, injectabl e, quadrivalent, preservative free [facility] 08-05-2015 influenza, seasonal, injectable [facility] 07-23-2014 influenza, injectabl e, quadrivalent, preservative free [facility] 07-23-2014 influenza, seasonal, injectable [facility] Payers Date Payer Category Payer Self-pay [id number] 2024 Self-pay [id number] 2024 Unknown [id number] Private Health Insurance [facility] [id number] Unknown [id number] 2.16.8 [id number] Unknown [id number] 2.16.8 [id number] Unknown [id number] 2.16.8 [id number] Unknown [id number] 2.16.8 [id number] Unknown [id number] 2.16.8 [id number] Unknown [id number] 2.16.8 [id number] Unknown [id number] 2.16.8 [id number] Unknown [id number] 2.16.8 [id number] Unknown [id number] 2.16.8 [id number] Unknown [id number] 2.16.8 [id number] Unknown [id number] 2.16.8 [id number] Unknown [id number] 2.16.8 [id number] Unknown [id number] 2.16.8 [id number] Unknown [id number] 2.16.8 [id number] Social History Date Type Detail Facility Start: 01-07-2021 End: 01-07-2021 Tobacco smoking status NHIS Unknown if ever smoked [facility] Start: 01-07-2021 Non-smoker [facility] Start: 1965 Sex Assigned At Female [facility] Start: 01-07-2021 Tobacco smoking stat us ILIS Never smoked tobacco (finding) [facility] Start: 01-21-2025 Sex Female (finding) [facility] Progress note 04-01-2021 Note Date & Type Note Facility 04-01-2021 Note HNO ID: [id number] Author: Mara Jackson APRN.SWATCH CLERK Service: ? Author Type: Nurse Practitioner Type: Progress Notes Filed: 04/01/2021 4:03 PM Note Text: DATE OF SERVICE: 04/01/2021 PROBLEM: Shannan Jaimes presents for postop visit. SURGERY AND DATE: 02/17/2021 EUA, Laparoscopic lysis of adhesions, TLH, BSO, SLN ? PATHOLOGY: A. ?[place] lymph nodes, left pelvic, excision? 2 lymph nodes, negative for malignancy (0/2). B. ?Uterus, cervix, bilateral fallopian tubes and bilateral ovaries, hysterectomy and bilateral salpingo-oophorectomy? Cervix? Negative for neoplasm. Endometrium?Atypical endometrial hyperplasia. ?See comment. Myometrium? Leiomyomata (1.3 cm in greatest dimension, intramural). ?Focal adenomyosis. Serosa?Fibrous adhesions. Right and left ovaries? Endosalpingosis. Right and left fallopian tubes? Benign paratubal cysts. ?Fibrous adhesions. C. ?[place] lymph node, right pelvic, excision? 1 lymph [...] all pre-disease performance without restriction). Mara Jackson, TEST MAN.SWATCH CLERK OBJECTIVE: VITALS: BP 138/70 (BP Site: Right Arm, BP Position: Sitting, BP Cuff Size: Regular Adult) Pulse 98 Ht 162.6 cm (5' 4) Wt (!) 143.3 kg (316 lb) LMP [...] a letter were sent to: Dr. Vidales [facility] Progress note 03-04-2021 Note Date & Type Note Facility 03-04-2021 Note HNO ID: [id number] Author: Satish Vidales MD Service: ? Author Type: Physician Type: Progress Notes Filed: 03/08/2021 10:02 AM Note Text: DATE OF SERVICE: 03/04/2021 PROBLEM: Shannan Jaimes presents for postop visit. SURGERY AND DATE: 02/17/2021 EUA, Laparoscopic lysis of adhesions, TLH, BSO, SLN PATHOLOGY: A. [place] lymph nodes, left pelvic, excision? 2 lymph nodes, negative for malignancy (0/2). B. Uterus, cervix, bilateral fallopian tubes and bilateral ovaries, hysterectomy and bilateral salpingo-oophorectomy? Cervix? Negative for neoplasm. Endometrium?Atypical endometrial hyperplasia. See comment. Myometrium? Leiomyomata (1.3 cm in greatest dimension, intramural). ?Focal adenomyosis. Serosa?Fibrous adhesions. Right and left ovaries? Endosalpingosis. Right and left fallopian tubes? Benign paratubal cysts. ?Fibrous adhesions. C. [place] lymph node, right pelvic, excision? 1 lymph [...] (98 ?F) (Tympanic) Ht 162.6 cm (5' 4) Wt (!) 145.6 kg (321 lb) LMP 11/09/2015 (Exact Date) SpO2 98% BMI 55.10 kg/m? HEENT: Normocephalic, atraumatic, mucus membranes moist and no lesions ABDOMEN: Abdomen soft, non-tender, no hepatosplenomegaly. Incision healing well. PELVIC: Deferred LOWER EXTREMITIES: No pitting edema, no palpable cords and no skin changes. Clinical Care Manager for exam: DO Rolf ASSESSMENT: 55 y/o with CAH s/p TLH/BSO/SLN. PLAN: 1. Discussed results of pathology and implications with patient. No further gynecologic oncology follow-up needed after 6 week visit. Encouraged routine well-woman visits with Dr. Medina. 2. Postop restrictions reviewed. Satish Vidales MD A copy of this office note and a letter were sent to: [facility] Clinical Note 02-17-2021 Note Date & Type Note Facility 02-17-2021 Note HNO ID: [id number] Author: David aPtel (Aprn Crna) Service: Anesthesiology Author Type: Nurse Education Reviewer Type: Anesthesia Procedure Notes Filed: 02/17/2021 9:19 [...] February 17, 2021 TIME: 9:19 AM CSN: [id number] [facility] Clinical Note 02-17-2021 Note Date & Type Note Facility 02-17-2021 Note HNO ID: [id number] Author: David Paetl (Aprn Crna) Service: Anesthesiology Author Type: Nurse Education Reviewer Type: Anesthesia Procedure Notes Filed: 02/17/2021 9:19 AM Note Text: ANESTHESIOLOGY PROCEDURE NOTE PIV General Information Patient Location: OR Staffing CEMENT MASON: David Patel (Aprn Crna) Performed by: CEMENT MASON Preparation Sterility Preparation: hand hygiene performed prior to procedure, surgical cap used, mask used, skin prep agent completely dried prior to procedure Site Prep: alcohol Procedure Details Indication: need for IV access Needle Size/Type: 18 gauge angiocath Orientation: Left Location: Hand Imaging Guidance Used: No SIGNATURE: David Patel APRN.CRNA PATIENT NAME: Shannan Jaimes DATE: February 17, 2021 TIME: 9:18 AM CSN: [id number] [facility] Clinical Note 02-17-2021 Note Date & Type Note Facility 02-17-2021 Note HNO ID: [id number] Author: David Patel (Aprn Crna) Service: Anesthesiology Author Type: Nurse Education Reviewer Type: Anesthesia Procedure Notes Filed: 02/17/2021 9:18 AM Note Text: ANESTHESIOLOGY PROCEDURE NOTE Airway General Information Procedure Start Time/Medication Administration: 02/17/2021 8:48 AM Patient location during procedure: OR Timeout Performed Pre-procedure: timeout performed Consent Obtained: Yes Patient identity confirmed: arm band Staffing CEMENT MASON: David Patel (Aprn Crna) Performed by: CEMENT MASON Indications and Patient Condition Preoxygenated: yes Patient [...] February 17, 2021 TIME: 9:17 AM CSN: [id number] [facility] Progress note 02-11-2021 Note Date & Type Note Facility 02-11-2021 Note HNO ID: [id number] Author: Petra Wang Service: Anesthesiology Author Type: Nurse Practitioner Type: Progress Notes Filed: 02/11/2021 2:19 PM Note Text: pst is out of Lashay Lu at Dr Vidales office aware. She will call into the pharmacy [facility] Progress note 02-05-2021 Note Date & Type Note Facility 02-05-2021 Note HNO ID: [id number] Author: Satish Vidales Service: ? Author Type: [...] lower extremity edema, or palpitations. No recent PR (within 6 months), cardiac stent, cardiac surgery, [...] (97.7 ?F) (Tympanic) Ht 162.6 cm (5' 4) Wt (!) 147 kg (324 lb) LMP [...] usual recommendation would (more content not included)... [facility] Evaluation note Note Date & Type Note Facility Evaluation note No assessment information availa [facility] Work Phone: Reason for referral (narrative) Note Date & Type Note Facility Reason for referral (narrative) No reason for referral information available [facility] Work Phone: Summary Purpose Family History No Family History Records FoundNo Family History Records FoundNo Family History Records Found Advance Directives No Advanced Directives Records Found Advance Directive Response Recorded Date/ Time Living Will No January 07, 2021 2:02pm Power of General Engineer No January 07 2:02pm Advance Directive Response Recorded Date/ Time Living Will No January 07, 2021 1:02pm Power of General Engineer No January 07 1:02pm Chief Complaint and Reason for Visit Chief Complaint SCREENING Chief Complaint Admit Date FATTY LIVER September 23, 2024 9:19am TYPE 2 DM October 22, 2024 2:31pm TYPE 2 DM November 27, 2024 4 :52pm TYPE 2 DM December 31, 2024 4:15pm Chief Complaint Admit Date TYPE 2 DM December 31, 2024 4:15pm SCREENING April 03, 2025 3:08p m Additional Source Comments INFORMATION SOURCE (unrecogn ized section and content) DATE CREATED AUTHOR 04/04/2021 [facility] DATE CREATED AUTHOR AUTHOR'S ORGANIZ ATION 11/30/2021 [facility] DATE CREATED AUTHOR AUTHOR'S ORGANIZ ATION 04/09/2025 [facility] Goals (unrecognized section and content) Goals may be documented in a n alternate sectionGoals may be documented in an alternate sectionGoals may be documented in an alternate sectionGoals may be documented in an alternate sectionGoals may be documented in an alternate section Care Teams (unrecognized sec tion and content) Team Status: Active Member Role Status Dates Dr. Jeet Farnsworth MD Family Provider Active Dr. Jeet Farnsworth MD Primary Care Provider Active Team Status: Inactive Member Role Status Dates Dr. Jeet Farnsworth MD Primary Care Provi tri, Attending Provider, Referring Provider Active Team Status: Inactive Member Role Status Dates Dr. Jeet Farnsworth MD Primary Care Provider, Attending Provider Active Team Status: Active Member Role Status Dates Dr. Jeet Farnsworth MD Primary Care Provider Active Team Status: Inactive Member Role Status Dates Dr. Jeet Farnsworth MD Primary Care Provider Active Start: September 23, 2024 End: September 23, 2024 Dr. Jeet Farnsworth MD Attending Provider Active Start: September 23, 2024 End: September 23, 2024 Dr. Jeet Farnsworth MD Referring Provider Active Start: September 23, 2024 End: September 23, 2024 Team Status: Inactive Member Role Status Dates Dr. Jeet Farnsworth MD Primary Care Provider Active Start: October 22, 2024 End: November 05, 2024 Dr. Jeet Farnsworth MD Attending Provider Active Start: October 22, 2024 End: November 05, 2024 Dr. Jeet Farnsworth MD Referring Provider Active Start: October 22, 2024 End: November 05, 2024 Team Status: Inactive Member Role Status Dates Dr. Jeet Farnsworth MD Primary Care Provider Active Start: November 22, 2024 End: November 22, 2024 Dr. Jeet Farnsworth MD Attending Provider Active Start: November 22, 2024 End: November 22, 2024 Team Status: Inactive Member Role Status Dates Dr. Jeet Farnsworth MD Primary Care Provider Active Start: November 27, 2024 End: December 06, 2024 Dr. Jeet Farnsworth MD Attending Provider Active Start: November 27, 2024 End: December 06, 2024 Dr. Jeet Farnsworth MD Referring Provider Active Start: November 27, 2024 End: December 06, 2024 Team Status: Inactive Member Role Status Dates Dr. Jeet Farnsworth MD Primary Care Provider Active Start: December 17, 2024 End: December 17, 2024 Dr. Jeet Farnsworth MD Attending Provider Active Start: December 17, 2024 End: December 17, 2024 Dr. Jeet Farnsworth MD Referring Provider Active Start: December 17, 2024 End: December 17, 2024 Team Status: Inactive Member Role Status Dates Dr. Jeet Farnsworth MD Primary Care Provider Active Start: December 31, 2024 End: January 03, 2025 Dr. Jeet Farnsworth MD Attending Provider Active Start: December 31, 2024 End: January 03, 2025 Dr. Jeet Farnsworth MD Referring Provider Active Start: December 31, 2024 End: January 03, 2025 Team Status: Inactive Member Role Status Dates Dr. Jeet Farnsworth MD Primary Care Provider Active Start: January 07, 2025 End: January 07, 2025 Dr. Jeet Farnsworth MD Attending Provider Active Start: January 07, 2025 End: January 07, 2025 Team Status: Inactive Member Role Status Dates Dr. Jeet Farnsworth MD Primary Care Provider Active Start: March 03, 2025 End: March 03, 2025 Dr. Jeet Farnsworth MD Attending Provider Active Start: March 03, 2025 End: March 03, 2025 Dr. Jeet Farnsworth MD Referring Provider Active Start: March 03, 2025 End: March 03, 2025 Team Status: Inactive Member Role Status Dates Dr. Jeet Farnsworth MD Primary Care Provider Active Start: April 03, 2025 End: April 03, 2025 Dr. Jeet Farnsworth MD Attending Provider Active Start: April 03, 2025 End: April 03, 2025 Dr. Jeet Farnsworth MD Referring Provider Active Start: April 03, 2025 End: April 03, 2025 FOR RECORDS PERTAINING TO PATIENTS WHO ARE [...] BE BASED ON THE PRIMARY CLINICAL RECORDS. Material [facility]. provides no warranty or guarantee of the accuracy or completeness of information in this document.
[2025-06-05 08:25] LABS: CORTISOL AM 6.25 ug/dL (6.02-18.40)
== END | disposition home or self-care (01) ==
LOC: LAB 07:10
PROVIDERS: PCP Family Medicine Geriatric Medicine; Referring Provider Family Medicine Geriatric Medicine; Visit Provider Family Medicine Geriatric Medicine
DX: E24.9 Cushing's syndrome, unspecified (principal)
CPT/HCPCS: 36415; 82533; 82627; 82626

== ENCOUNTER → 2025-06-17 | Outpatient (CLI) | payer BC, SELFPAY ==
[2025-06-17 09:21] LABS: CORTISOL AM 8.25 ug/dL (6.02-18.40)
== END | disposition home or self-care (01) ==
PROVIDERS: PCP Family Medicine Geriatric Medicine; Referring Provider Family Medicine Geriatric Medicine; Visit Provider Family Medicine Geriatric Medicine
DX: E24.9 Cushing's syndrome, unspecified (principal)
CPT/HCPCS: 36415; 82533

== ENCOUNTER → 2025-06-18 | Outpatient (CLI) | payer BC, SELFPAY | END | disposition home or self-care (01) | LOC: LAB 09:20 → LABSPEC 09:21 | PROVIDERS: PCP Family Medicine Geriatric Medicine; Referring Provider Family Medicine Geriatric Medicine; Visit Provider Family Medicine Geriatric Medicine | DX: E24.9 Cushing's syndrome, unspecified (principal) ==

== ENCOUNTER → 2025-06-19 | Outpatient (CLI) | payer BC, SELFPAY | END | disposition home or self-care (01) | LOC: LAB 08:58 → LABSPEC 09:00 | PROVIDERS: PCP Family Medicine Geriatric Medicine; Referring Provider Family Medicine Geriatric Medicine; Visit Provider Family Medicine Geriatric Medicine | DX: E24.9 Cushing's syndrome, unspecified (principal) ==

== ENCOUNTER → 2025-06-23 | Outpatient (CLI) | payer BC, SELFPAY ==
[2025-06-23 20:28] LABS: Xtra Tube Kwok EXTRA TUBE
== END | disposition home or self-care (01) ==
LOC: POLAB3 12:27
PROVIDERS: PCP Family Medicine Geriatric Medicine; Visit Provider Family Medicine Geriatric Medicine
DX: E24.9 Cushing's syndrome, unspecified (principal)
CPT/HCPCS: 36415; 82024

== ENCOUNTER → 2025-09-08 | Outpatient (CLI) | payer BC, SELFPAY ==
[2025-09-08 16:50] LABS: Hematocrit 38.7 % (37-47); Hemoglobin 12.6 g/dL (12.0-15.0); Immature Granulocytes Count 0.030 X10^3/uL (0.0-0.0); Mean Corp Hgb Conc 32.6 g/dL (32-36); Mean Corpuscular Volume 88.6 fL (81-99); Mean Platelet Vol. 10.0 fl (6.2-12.0); NRBC Flagged by Analyzer 0 % (0-5); Platelet Count 269 K/mm3 (150-450); RBC Distribution Width CV 13.3 % (11.6-14.6); RBC Distribution Width SD 43.3 fl (35.1-43.9); Red Blood Count 4.37 M/mm3 (4.2-5.4); White Blood Count 11.2 K/mm3 (4.4-11.0)
[2025-09-08 17:40] LABS: AST(SGOT) 25 U/L (<=31); Alanine Aminotransfer ALT/SGPT 28 U/L (<=34); Albumin, Serum 4.1 g/dL (3.4-4.8); Alkaline Phosphatase 73 U/L (35-104); Anion Gap 10 (5-15); BUN 15 mg/dL (4-19); BUN/Creat Ratio 14.0 RATIO (10-20); Calcium,Total 8.9 mg/dL (7.6-11.0); Carbon Dioxide 25.5 mmol/L (21.0-32.0); Chloride 104 mmol/L (98-108); Globulin 3.0 g/dL (2.2-4.2); Glucose 105 mg/dL (70-99); Potassium 3.7 mmol/L (3.3-5.1)
[2025-09-09 00:19] LABS: Xtra Tube Kwok EXTRA TUBE
== END | disposition home or self-care (01) ==
LOC: POLAB3 16:19
PROVIDERS: PCP Family Medicine Geriatric Medicine; Visit Provider Family Medicine Geriatric Medicine
DX: I10 Essential (primary) hypertension (principal); E03.9 Hypothyroidism, unspecified
CPT/HCPCS: 36415; 80053; 84443; 85025